=== PATIENT | female | born 1940 | race Caucasian/White ===

== ENCOUNTER → 2016-11-16 | Outpatient (CLI) | payer MEDICARE, OTHER ==
--- NOTE | 2016-11-16 12:13 | XR ---
EXAMINATION TYPE: XR calcaneus 2V RT DATE OF EXAM: 11/16/2016 11:52 AM COMPARISON: NONE HISTORY: Pain TECHNIQUE: 2 view right calcaneus FINDINGS: An enteric Achilles tendon calcaneal heel spurs are present. Soft tissues appear normal. No acute fractures are evident. Joint spaces appear preserved. IMPRESSION: 1. Calcaneal heel spurs
--- NOTE | 2016-11-16 12:14 | XR ---
EXAMINATION TYPE: XR shoulder complete BILAT DATE OF EXAM: 11/16/2016 11:52 AM COMPARISON: NONE HISTORY: Pain TECHNIQUE: Shoulder examined in 3 views. FINDINGS: The humeral head articulates with the glenoid. Left glenohumeral joint space may be narrowed compatib le some osteoarthritic degenerative change. Another is loss of joint space between the glenohumeral j oint space at the superior right. There is also loss of the acromiohumeral joint space compatible wit h a chronic rotator cuff tear. Right humeral head spurring is present. The acromio-clavicular junction is normal. No acute fractures or dislocations are evident. A follow up study can be performed 7-10 days from acute trauma for continued pain. IMPRESSION: 1. 1. Chronic right rotator cuff tear. 2. Osteoarthritic degenerative change bilateral shoulders, greater on the right.
== END ==
LOC: RADXRMAIN 11:22
PROVIDERS: ATTEND Family Medicine
DX: M19.011 Primary osteoarthritis, right shoulder (principal); M19.012 Primary osteoarthritis, left shoulder; M75.101 Unspecified rotator cuff tear or rupture of right shoulder, not specified as traumatic; M77.31 Calcaneal spur, right foot

== ENCOUNTER → 2018-08-09 | Outpatient (CLI) | payer MEDICARE, OTHER ==
[~2018-08-09] MED LIST: REGADENOSON 0.4 MG/5 ML SYRINGE IV ONE
--- NOTE | 2018-08-09 10:50 | NM ---
EXAMINATION TYPE: NM stress lexiscan cardiolite DATE OF EXAM: 08/09/2018 COMPARISON: NONE HISTORY: Abnormal EKG. History of asthma use and hypertension as well as hypercholesterolemia present s with palpitations per patient. TECHNIQUE: After the intravenous administration of 10.12 mCi Tc 99m Sestamibi - Cardiolite resting S PECT images acquired 45 minutes post injection. The patient received 0.4mg Lexiscan, 25.7 mCi Tc 99m Sestamibi - Stress images obtained [address] injection FINDINGS: There is overall diffuse diminished color intensity or radiotracer uptake on stress images versus res t images most prominent throughout the mid segments but involving all ventricular magana. TID value no madison within normal limits. Favor artifact but cannot exclude multivessel ischemia. Gated analysis show s overall ejection fraction of 69 % in the normal range. IMPRESSION: Suboptimal study, cannot exclude multi vessel significant stenosis. Advised further inves tigation with direct catheter angiogram or CTA coronary study.
--- NOTE | 2018-08-10 16:17 | ECHOF ---
Referral Reason:R94.31 abnormal ekg MEASUREMENTS -------- HEIGHT: 162.6 cm WEIGHT: 83.5 kg BP: RVIDd: 2.7 cm (< 3.3) IVSd: 1.3 cm (0.6 - 1.1) LVIDd: 4.1 cm (3.9 - 5.3) LVPWd: 1.2 cm (0.6 - 1.1) IVSs: 1.4 cm LVIDs: 3.5 cm LVPWs: 1.3 cm LA Diam: 3.6 cm (2.7 - 3.8) Ao Diam: 2.5 cm (2.0 - 3.7) AV Cusp: 1.7 cm (1.5 - 2.6) LA Diam: 3.2 cm (2.7 - 3.8) MV EXCURSION: 19.089 mm (> 18.000) MV EF SLOPE: 113 mm/s (70 - 150) EPSS: 0.3 cm MV E Chadd: 0.52 m/s MV DecT: 234 ms MV A Chadd: 0.76 m/s MV E/A Ratio: 0.69 RAP: 5.00 mmHg RVSP: 20.96 mmHg FINDINGS -------- Sinus rhythm. This was a technically good study. The left ventricular size is normal. There is mild concentric left ventricular hypertrophy. Overa ll left ventricular systolic function is normal with, an EF between 55 - 60 %. The right ventricle is normal in size. The left atrial size is normal. The right atrial size is normal. The aortic valve is trileaflet, and appears structurally normal. No aortic stenosis or regurgitation. Mild mitral annular calcification present. Mild mitral regurgitation is present. Mild tricuspid regurgitation present. There is no evidence of pulmonary hypertension. The right v entricular systolic pressure, as measured by Doppler, is 20.96mmHg. There is no pulmonic regurgitation present. The aortic root size is normal. There is no pericardial effusion. CONCLUSIONS -------- 1. The left ventricular size is normal. 2. There is mild concentric left ventricular hypertrophy. 3. Overall left ventricular systolic function is normal with, an EF between 55 - 60 %. 4. The right ventricle is normal in size. 5. The left atrial size is normal. 6. The right atrial size is normal. 7. The aortic valve is trileaflet, and appears structurally normal. No aortic stenosis or regurgitati on. 8. Mild mitral annular calcification present. 9. Mild mitral regurgitation is present. 10. Mild tricuspid regurgitation present. 11. There is no evidence of pulmonary hypertension. 12. The right ventricular systolic pressure, as measured by Doppler, is 20.96mmHg. 13. There is no pulmonic regurgitation present. 14. The aortic root size is normal. 15. There is no pericardial effusion. BUTTON BREAKER OPERATOR: Felisha Tsang RDCS
--- NOTE | 2018-08-10 17:56 | EST ---
EXERCISE STRESS DATE OF SERVICE: August 09, 2018. INDICATION: Chest pain. AGE: 77 SEX: Fe HT: 5'4" WT: 184 lbs PROTOCOL: STAGE: DURATION OF EXERCISE: HEART RATE REST: 59 BLOOD PRESSURE REST: 133/83 MAXIMUM HEART RATE ACHIEVED: 78 MAXIMUM BLOOD PRESSURE: 124/78 85% MPHR: 100% MPHR: METS: STRESS DATA: Pretesting physical examination showed a heart rate of 59, pressure is 133/83 mmHg. Baseline EKG showed sinus mechanism; 0.4 mg of Lexiscan was given seconds per protocol. Max heart rate was 76 beats per minute and maximum pressure was 124/78 mmHg. Clinically the patient did not have any symptoms of chest pain or discomfort and the EKG did not show any significant ST or T-wave abnormalities concerning for ischemia. CONCLUSION: 1. Nondiagnostic electrocardiogram stress testing in response to Lexiscan. 2. Please follow up on the Cardiolite portion on a separate report from radiology department. MMODL / IJN: [id number] /
== END ==
LOC: RADNMMAIN 07:47
PROVIDERS: ATTEND Family Medicine
DX: R94.31 Abnormal electrocardiogram [ECG] [EKG] (principal)
CPT/HCPCS: 93017; 93306; 78452; A9500; J2785

== ENCOUNTER → 2018-10-26 | Outpatient (CLI) | payer MEDICARE, OTHER ==
[2018-10-26 09:20] LABS: HCT 42.6 % (34.0-46.0); HGB 13.6 gm/dL (11.4-16.0); MCH 28.8 pg (25.0-35.0); MCHC 31.8 g/dL (31.0-37.0); MCV 90.6 fL (80.0-100.0); Mean Platelet Volume 7.1; Platelet Count 291 k/uL (150-450); RDW 14.2 % (11.5-15.5); WBC 6.7 k/uL (3.8-10.6)
[2018-10-26 10:30] LABS: Anion Gap 7 mmol/L; Blood Urea Nitrogen 14 mg/dL (7-17); Carbon Dioxide 29 mmol/L (22-30); Chloride 102 mmol/L (98-107); Potassium 4.5 mmol/L (3.5-5.1); Sodium 138 mmol/L (137-145)
== END ==
LOC: LABPAT 09:02
PROVIDERS: ATTEND Internal Medicine Cardiovascular Disease
DX: Z01.812 Encounter for preprocedural laboratory examination (principal); R07.9 Chest pain, unspecified
CPT/HCPCS: 36415; 80051; 82565; 84520; 85027

== ENCOUNTER → 2018-11-03 | Day surgery (SDC) | payer MEDICARE, OTHER ==
[2018-11-01 09:48] VITALS: BMI 30.6
[~2018-11-03] MED LIST changes: +ALPRAZolam 0.25 MG TAB PO PRN; +ALPRAZolam 0.5 MG TAB PO PRN; +ASPIRIN 325 MG TAB PO STA; +ATORVASTATIN 80 MG TAB PO STA; +HEPARIN SODIUM 1,000 UN/ML (10ML VL) IV ONE; +HEPARIN SODIUM 1,000 UN/ML (10ML VL) ONE; +IOPAMIDOL-370 100ML BTL INJ ONE; +LIDOCAINE 1% INJ 10MG/ML (20 ML MDV) ONE; +LIDOCAINE 1% INJ 10MG/ML (20 ML MDV) SQ ONE; +MIDAZOLAM 2 MG/2 ML VIAL IVP ONE; +NITROGLYCERIN SL TABS 0.4 MG TAB SUBLINGUAL PRN; -REGADENOSON 0.4 MG/5 ML SYRINGE IV ONE; +RX INFO: IV CONTRAST WAS GIVEN 1 EACH MISC MISCELLANE PRN; +SODIUM CHLORIDE 0.9% 1,000 ML IV SCH; +SODIUM CHLORIDE 0.9% 1,000 ML in EMPTY BAG 1 BAG IV ONE; +VERAPAMIL 2.5 MG/ML 2 ML AMP ONE; +VERAPAMIL SYRINGE (5 MG/10 ML) INTRAARTER ONE; +fentaNYL (PF) 50 MCG/ML 2 ML AMP IVP ONE; +fentaNYL (PF) 50 MCG/ML 2 ML AMP ONE; +methylPREDNISolone SOD SUCCI 125 MG/2 ML VIAL IVP ONE; +methylPREDNISolone SOD SUCCI 125 MG/2 ML VIAL ONE
[2018-11-03 06:54] VITALS: TEMP 97.8
--- NOTE | 2018-11-03 08:22 | P.CARDCATH ---
Date of Procedure: 11/03/18 Preoperative Diagnosis: Positive stress test and exertional dyspnea Postoperative Diagnosis: Normal coronary arteries, diastolic dysfunction with elevated end-diastolic pressures Procedure(s) Performed: Left heart cath without left ventriculography Description of Procedure: HISTORY: This is a 77-year-old female with history of hypertension who was recently evaluated by nuclear stress test for evaluation of symptoms of exertional shortness of breath. The quality of the study is suboptimal but was describes as showing multiple defects suggestive of possible multivessel disease . Patient was advised to have either at stress echocardiogram or cardiac catheterization for definitive diagnosis. Patient preferred to have cardiac catheterization CONSENT:I have discussed the risks, benefits and alternative therapies for the above-mentioned procedure and for both sedation/analgesia as well as necessary blood product administration, if indicated, as they pertain to this patient. The patient has indicated understanding and acceptance of the risks and procedures discussed. PROCEDURE: Patient was brought to the lab in a fasting state. Patient was given some IV sedation. The right wrist is infiltrated with lidocaine and right radial artery was entered using Seldinger technique. A 6-Swiss catheter was left in place and selective coronary arteriography was performed. Patient tolerated the procedure well. TR band was applied for hemostasis. No immediate complications were noted and patient was transferred to [facility] in a stable condition Conscious Sedation: Versed 1mg Fentanyl 50 g Duration 17minutes HEMODYNAMICS: The aortic pressure is about 140/70. Left ankle end-diastolic pressure is about 16-20. There was no gradient across the aortic valve SELECTIVE CORONARY ARTERIOGRAPHY: LEFT MAIN: Normal length and free of any occlusive disease THE LEFT ANTERIOR DESCENDING CORONARY ARTERY: The left anterior descending coronary artery is a good caliber vessel giving rise to good-sized diagonal branch. The LAD and its branches are free of occlusive disease THE LEFT CIRCUMFLEX AND IS CORONARY ARTERY:. This is a moderate caliber vessel giving rise good-sized OM branch. The circumflex and is coronary artery and branches are free of occlusive disease THE RIGHT CORONARY ARTERY:. This is a moderate caliber vessel dominant in distribution. Free of occlusive disease LEFT VENTRICULOGRAPHY:. Not performed FINAL IMPRESSION:, Normal coronary arteries. Mildly elevated end-diastolic pressure suggestive of diastolic dysfunction PLAN: Maximum medical therapy and this factor modification PROGNOSIS: Fair
[2018-11-03 09:18] VITALS: RESP 18
[2018-11-03 09:19] VITALS: BP 147/67; PULSE 54
== END ==
LOC: CATHCVL 06:30
PROVIDERS: ATTEND Internal Medicine Cardiovascular Disease
DX: R07.9 Chest pain, unspecified (principal); R94.39 Abnormal result of other cardiovascular function study; R06.09 Other forms of dyspnea; Z82.49 Family history of ischemic heart disease and other diseases of the circulatory system; Z79.1 Long term (current) use of non-steroidal anti-inflammatories (NSAID); Z79.890 Hormone replacement therapy; Z79.899 Other long term (current) drug therapy; Z88.1 Allergy status to other antibiotic agents; Z88.5 Allergy status to narcotic agent; Z88.0 Allergy status to penicillin; Z91.048 Other nonmedicinal substance allergy status
CPT/HCPCS: 93458; C1894; J2250; J2930; J2001; J3010; J1644; Q9967

== ENCOUNTER → 2019-04-21 | Day surgery (SDC) | payer MEDICARE, OTHER ==
[2019-04-17 14:54] VITALS: BMI 30.9
[~2019-04-21] MED LIST changes: -ALPRAZolam 0.25 MG TAB PO PRN; -ALPRAZolam 0.5 MG TAB PO PRN; -ASPIRIN 325 MG TAB PO STA; -ATORVASTATIN 80 MG TAB PO STA; -HEPARIN SODIUM 1,000 UN/ML (10ML VL) IV ONE; -HEPARIN SODIUM 1,000 UN/ML (10ML VL) ONE; -IOPAMIDOL-370 100ML BTL INJ ONE; +LACTATED RINGERS 1,000 ML IV SCH; -LIDOCAINE 1% INJ 10MG/ML (20 ML MDV) ONE; -LIDOCAINE 1% INJ 10MG/ML (20 ML MDV) SQ ONE; -MIDAZOLAM 2 MG/2 ML VIAL IVP ONE; -NITROGLYCERIN SL TABS 0.4 MG TAB SUBLINGUAL PRN; +PROPOFOL 10 MG/ML 20 ML VIAL IV ONE; -RX INFO: IV CONTRAST WAS GIVEN 1 EACH MISC MISCELLANE PRN; -SODIUM CHLORIDE 0.9% 1,000 ML IV SCH; -SODIUM CHLORIDE 0.9% 1,000 ML in EMPTY BAG 1 BAG IV ONE; -VERAPAMIL 2.5 MG/ML 2 ML AMP ONE; -VERAPAMIL SYRINGE (5 MG/10 ML) INTRAARTER ONE; -fentaNYL (PF) 50 MCG/ML 2 ML AMP IVP ONE; -fentaNYL (PF) 50 MCG/ML 2 ML AMP ONE; -methylPREDNISolone SOD SUCCI 125 MG/2 ML VIAL IVP ONE; -methylPREDNISolone SOD SUCCI 125 MG/2 ML VIAL ONE
[2019-04-21 13:25] VITALS: TEMP 97.8
--- NOTE | 2019-04-21 14:36 | P.PCN ---
Date of Procedure: 04/21/19 Procedure(s) Performed: BRIEF HISTORY: Patient is a 78-year-old pleasant white female, scheduled for an elective colonoscopy as a part of evaluation of chronic diarrhea and mucus in the stools for the last 6 weeks duration. She also has prior history of colon polyps. PROCEDURE PERFORMED: Colonoscopy. PREOPERATIVE DIAGNOSIS: Chronic diarrhea and prior history of colon polyps. IV sedation per Anesthesia. PROCEDURE: After informed consent was obtained, the patient, was brought into the endoscopy unit. IV sedation was administered by Anesthesia under continuous monitoring. Digital rectal examination was normal. Initially the Olympus CF-160 flexible video colonoscope was then inserted in the rectum, gradually advanced into the cecum without any difficulty. Careful examination was performed as the scope was gradually being withdrawn. Ileocecal valve and the appendiceal orifice were visualized and appeared normal. Prep was excellent. Mucosa of the cecum, ascending colon, transverse colon, descending colon, sigmoid colon, and rectum appeared normal. Moderate sigmoid_Diverticulosis seen. Retroflexion was performed in the rectum and no lesions were seen. The patient tolerated the procedure well. IMPRESSION: Normal-appearing colon from rectum to cecum with no evidence of colitis or c olorectal neoplasia Moderate sigmoid diverticulosis. RECOMMENDATIONS: Findings of this examination were discussed with the patient as her family. She was advised to be on a high-fiber diet and fiber supplements a regular basis. She can have a repeat colonoscopy in 5 years because of the prior history of colon polyps.
[2019-04-21 15:08] VITALS: BP 159/83; PULSE 79; RESP 17
== END ==
LOC: ORWHC2ENDO 13:00
PROVIDERS: ATTEND Internal Medicine Gastroenterology
DX: K57.30 Diverticulosis of large intestine without perforation or abscess without bleeding (principal); Z86.010 Personal history of colon polyps; E78.5 Hyperlipidemia, unspecified; E07.9 Disorder of thyroid, unspecified; F39 Unspecified mood [affective] disorder; Z79.1 Long term (current) use of non-steroidal anti-inflammatories (NSAID); Z79.890 Hormone replacement therapy; Z79.899 Other long term (current) drug therapy; Z88.1 Allergy status to other antibiotic agents; Z91.041 Radiographic dye allergy status; Z88.5 Allergy status to narcotic agent; Z88.0 Allergy status to penicillin; Z91.013 Allergy to seafood
CPT/HCPCS: 45378; J2704

== ENCOUNTER → 2019-06-12 | Outpatient (CLI) | payer MEDICARE, OTHER ==
--- NOTE | 2019-06-13 10:13 | MM ---
Reason for exam: screening (asymptomatic). Last mammogram was performed 4 years and 8 months ago. History: Patient is postmenopausal. Family history of breast cancer in daughter at age 47. Excisional biopsy of the right breast. Physical Findings: A clinical breast exam by your physician is recommended on an annual basis and results should be correlated with mammographic findings. MG 3D Screening Mammo W/Cad Bilateral CC and MLO view(s) were taken. Prior study comparison: October 01, 2014, bilateral MG screening mammo w CAD. June 15, 2013, bilateral digital screening mammo w/CAD. The breast tissue is heterogeneously dense. This may lower the sensitivity of mammography. Benign appearing bilateral calcifications. No suspicious abnormality. No significant changes when compared with prior studies. ASSESSMENT: Benign, BI-RAD 2 RECOMMENDATION: Routine screening mammogram of both breasts in 1 year.
== END | disposition home or self-care (01) ==
LOC: RADMAMWWP 09:52
PROVIDERS: ATTEND Family Medicine
DX: Z12.31 Encounter for screening mammogram for malignant neoplasm of breast (principal); Z80.3 Family history of malignant neoplasm of breast
CPT/HCPCS: 77063; 77067

== ENCOUNTER → 2023-02-25 | Outpatient (CLI) | payer MEDICARE, OTHER ==
--- NOTE | 2023-02-26 12:39 | CA ---
Transthoracic Echo Report Name: Cailin Cooper Age: 82 Gender: F : 1940 Exam Date: 02/25/2023 11:51 Exam Location: [facility] Ht (in): 64 Wt (lb): 190 Ordering Physician: Elijah Silva MD Attending/Referring Phys: Elijah Silva MD Electronic Plotting System Operator Comfort Norwood RDCS Procedure CPT: Indications: R60.0 lower extremity edema Cardiac Hx: Technical Quality: Fair Contrast 1: Total Dose (mL): Contrast 2: Total Dose (mL): MEASUREMENTS (Male / Female) Normal Values 2D ECHO LV Diastolic Diameter PLAX 4.6 cm 4.2 - 5.9 / 3.9 - 5.3 cm LV Systolic Diameter PLAX 3.0 cm IVS Diastolic Thickness 1.1 cm 0.6 - 1.0 / 0.6 - 0.9 cm LVPW Diastolic Thickness 1.0 cm 0.6 - 1.0 / 0.6 - 0.9 cm LV Relative Wall Thickness 0.5 RV Internal Dim ED PLAX 2.9 cm LA Volume 59.4 cm??? 18 - 58 / 22 - 52 cm??? M-MODE Aortic Root Diameter MM 2.6 cm LA Systolic Diameter MM 3.4 cm LA Ao Ratio MM 1.3 AV Cusp Separation MM 1.9 cm DOPPLER AV Peak Velocity 135.6 cm/s AV Peak Gradient 7.4 mmHg AV Mean Velocity 91.9 cm/s AV Mean Gradient 3.7 mmHg AV Velocity Time Integral 30.4 cm LVOT Peak Velocity 99.1 cm/s LVOT Peak Gradient 3.9 mmHg LVOT Velocity Time Integral 27.0 cm MV Area PHT 3.4 cm??? Mitral E Point Velocity 82.7 cm/s Mitral A Point Velocity 78.8 cm/s Mitral E to A Ratio 1.1 MV Deceleration Time 224.1 ms MV E' Velocity 7.6 cm/s Mitral E to MV E' Ratio 10.9 TR Peak Velocity 275.1 cm/s TR Peak Gradient 30.3 mmHg Right Ventricular Systolic Press 33.0 mmHg FINDINGS Left Ventricle Mildly increased left ventricular wall thickness. Left ventricular cavity size normal. Normal left ventricular systolic function with no obvious regional wall motion abnormalities. Left ventricular ejection fraction is estimated at 55-60 %. Right Ventricle Normal right ventricular size and function. Right Atrium Normal right atrial size. Left Atrium Mildly increased left atrial volume. Mitral Valve Structurally normal mitral valve. Mild mitral annular calcification. Mild to moderate mitral regurgitation. Aortic Valve Trileaflet aortic valve. No aortic valve stenosis or regurgitation. Tricuspid Valve Structurally normal tricuspid valve. Mild tricuspid regurgitation. Pulmonic Valve Structurally normal pulmonic valve. Trace pulmonic regurgitation. Pericardium Normal pericardium. No pericardial effusion. Aorta Normal size aortic root and proximal ascending aorta. CONCLUSIONS Normal LV systolic function [id number] mitral regurgitation Previewed by: Dr. Nima Baptiste MD (Electronically Signed) Final Date: 26 February 2023 12:39
== END | disposition home or self-care (01) ==
LOC: RADECHMAIN 11:27
PROVIDERS: ATTEND Family Medicine
DX: I34.0 Nonrheumatic mitral (valve) insufficiency (principal); R60.0 Localized edema
CPT/HCPCS: 93306

== ENCOUNTER → 2023-07-20 | Outpatient (CLI) | payer MEDICARE, OTHER ==
--- NOTE | 2023-07-20 20:31 | XR ---
EXAMINATION TYPE: XR shoulder complete 3 views BILAT DATE OF EXAM: 07/20/2023 COMPARISON: 11/16/2016 HISTORY: 82-year-old female M25.511, M25.512 Chronic pain of both shoulders. Long-term bilateral shou lder pain. FINDINGS: There is mild degenerative change of the bilateral AC joints. On both sides, there is rounded contour to the greater tuberosities weight loss of the subacromial sp dulce maria on the [place] views and degenerative spurring at the glenohumeral joints, slightly more so on th e right. There is additional sclerosis along the undersurface of the acromion on the right. No acute fracture or dislocation. IMPRESSION: 1. Bilateral rotator cuff arthropathy, progressed on the right. 2. The right acromion has developed stress reaction from glenohumeral joint instability and chronic b penelope abutment of the humeral head with the undersurface of the acromion. 3. Mild bilateral AC joint OA.
== END | disposition home or self-care (01) ==
LOC: RADXRMAIN 10:30
PROVIDERS: ATTEND Family Medicine
DX: M19.011 Primary osteoarthritis, right shoulder (principal); M19.012 Primary osteoarthritis, left shoulder

== ENCOUNTER 2024-02-15 12:19 | Inpatient (IN) | payer MEDICARE, OTHER ==
--- NOTE | 2024-02-15 13:01 | ED ---
General Adult HPI - General Chief complaint: Nausea/Vomiting/Diarrhea Stated complaint: NVD Time Seen by Provider: 02/15/24 12:35 Source: patient, RN notes reviewed Mode of arrival: ambulatory Limitations: no limitations - History of Present Illness Initial comments: Patient is a pleasant 83-year-old female present to the emergency department with concerns for abdominal problems. Onset of symptoms was 2 weeks ago. Patient does have nausea. Food makes the nausea worse and patient has had decreased appetite. Patient sometimes has a small amount of emesis up to a couple times per day. Patient has had a couple episodes of diarrhea. Patient has some epigastric discomfort - Related Data Home Medications Medication Instructions Recorded Confirmed Escitalopram [Lexapro] 20 mg PO [facility] 04/17/19 02/15/24 Acetaminophen Tab [Tylenol Tab] 500 - 1,000 mg PO [facility] 02/15/24 02/15/24 Calcium 333mg/Magnesium 133mg/Zinc 1 tab PO DAILY 02/15/24 02/15/24 5mg/Vitamin D3 5mcg Cholecalciferol (Vitamin D3) 50 mcg PO DAILY 02/15/24 02/15/24 [Vitamin D3 (50 Mcg = 2000 Iu)] Cyanocobalamin [Vitamin B-12] 500 mcg PO DAILY 02/15/24 02/15/24 Elderberry 50mg 1 tab PO DAILY 02/15/24 02/15/24 Furosemide [Lasix] 20 mg PO [facility] 02/15/24 02/15/24 Levothyroxine Sodium [Synthroid] 88 mcg PO DAILY 02/15/24 02/15/24 Potassium Chloride ER [K-Dur 20] 20 meq PO [facility] 02/15/24 02/15/24 Rosuvastatin [Crestor] 10 mg PO HS 02/15/24 02/15/24 Turmeric Curcumin 1500mg W/10mg 1 tab PO DAILY 02/15/24 02/15/24 Bioperine Vitamin C 100mg 1 tab PO DAILY 02/15/24 02/15/24 Allergies Allergy/AdvReac Type Severity Reaction Status Date / Time iodine Allergy Severe Abdominal Verified 02/15/24 13:45 Pain/hives clindamycin Allergy Nausea & Verified 02/15/24 13:45 Vomiting & Diarrhea codeine Allergy Rash/Hives Verified 02/15/24 13:45 oxycodone [From OxyContin] Allergy Unknown Verified 02/15/24 13:46 Penicillins Allergy Rash/Hives Verified 02/15/24 13:45 prednisone Allergy Unknown Verified 02/15/24 13:46 shellfish derived [Shellfish] Allergy Rash/Hives Verified 02/15/24 13:45 amoxicillin AdvReac Rash/Hives Verified 02/15/24 13:45 hydrocodone bitartrate AdvReac Nausea & Verified 02/15/24 13:45 [From Vicodin] Vomiting & Diarrhea venom-honey bee AdvReac Chest Pain Verified 02/15/24 13:45 [bee venom (honey bee)] Review of Systems ROS Statement: Those systems with pertinent positive or pertinent negative responses have been documented in the HPI. ROS Other: All systems not noted in ROS Statement are negative. Constitutional: Denies: fever Eyes: Denies: eye pain ENT: Denies: ear pain Respiratory: Denies: cough Cardiovascular: Denies: chest pain Endocrine: Denies: fatigue Gastrointestinal: Reports: as per HPI, nausea, vomiting Genitourinary: Denies: dysuria Musculoskeletal: Denies: back pain Skin: Denies: rash Neurological: Denies: weakness Past Medical History Past Medical History: Hyperlipidemia, Osteoarthritis (OA), Thyroid Disorder Additional Past Medical History / Comment(s): diverticulitis, hx c-diff 10/2013 History of Any Multi-Drug Resistant Organisms: None Reported Date of last positivie culture/infection: 10/2013 MDRO Source:: stool Past Surgical History: Breast Surgery, Heart Catheterization, Hysterectomy, Joint Replacement, Tonsillectomy Additional Past Surgical History / Comment(s): left knee replacement, rt breast lumpectomy Past Anesthesia/Blood Transfusion Reactions: No Reported Reaction Additional Past Anesthesia/Blood Transfusion Reaction / Comment(s): Pt has never had a blood transfusion. Past Psychological History: Depression Past Alcohol Use History: None Reported Past Drug Use History: None Reported - Past Family History Daughter(s) Family Medical History: Cancer Father Family Medical History: Cancer Additional Family Medical History / Comment(s): testicular Mother Additional Family Medical History / Comment(s): Mother after wisdom tooth pulled and ended up with blood poisoning. General Exam Limitations: no limitations General appearance: alert, in no apparent distress Head exam: Present: normocephalic Eye exam: Present: normal appearance ENT exam: Present: normal oropharynx Neck exam: Present: normal inspection Respiratory exam: Present: normal lung sounds bilaterally Cardiovascular Exam: Present: regular rate, normal rhythm Expanded Peripheral pulses: 2+: Dorsalis Pedis (R), Dorsalis Pedis (L) GI/Abdominal exam: Present: soft, tenderness (Mild epigastric tenderness), normal bowel sounds. Absent: distended, guarding, rebound, rigid, pulsatile mass Extremities exam: Present: normal inspection Neurological exam: Present: alert Psychiatric exam: Present: normal affect, normal mood Skin exam: Present: normal color Course Vital Signs 02/15/24 02/15/24 12:25 18:00 Temperature 97.5 F L Pulse Rate 89 73 Respiratory 16 14 Rate Blood Pressure 136/83 143/80 O2 Sat by Pulse 95 98 Oximetry Medical Decision Making - Medical Decision Making Was pt. sent in by a medical professional or institution (, PA, BOTTOM PRESSER, urgent care, hospital, or [facility]...) When possible be specific @ -No Did you speak to anyone other than the patient for history (EMS, parent, family, police, friend...)? What history was obtained from this source @ - present and helps provide history including onset and severity of symptoms Did you review nursing and triage notes (agree or disagree)? Why? @ -I reviewed and agree with nursing and triage notes Were old charts reviewed (outside hosp., previous admission, EMS record, old EKG, old radiological studies, urgent care reports/EKG's, [facility] records)? Report findings @ -No old charts were reviewed Differential Diagnosis (chest pain, altered mental status, abdominal pain women, abdominal pain men, vaginal bleeding, weakness, fever, dyspnea, syncope, headache, dizziness, GI bleed, back pain, seizure, CVA, palpatations, mental health, musculoskeletal)? @ -Differential Abdominal Pain Women: Appendicitis, Cholecystitis, diverticulosis, ischemic bowel, pancreatitis, hepatitis, UTI, gastroenteritis, AAA, incarcerated hernia, bowel obstruction, constipation, inflammatory bowel, hepatitis, peptic ulcer disease, splenic infarction, perforated viscus, vulvitis, ovarian torsion, PID, kidney stone, placenta abruption, this is not meant to be an all-inclusive list EKG interpreted by me (3pts min.). @ -As above X-rays interpreted by me (1pt min.). @ -None done CT interpreted by me (1pt min.). @ -CT scan does show fluid collection in the pelvis U/S interpreted by me (1pt. min.). @ -Will be ordered as an inpatient What testing was considered but not performed or refused? (CT, X-rays, U/S, labs)? Why? @ -Ultrasound will be ordered What meds were considered but not given or refused? Why? @ -None Did you discuss the management of the patient with other professionals (professionals i.e. , PA, B[employer] PR[employer]ER, lab, RT, psych nurse, director social service, design and sales consultant, teacher, chief commercial officer, correctional case manager)? Give summary @ -This was discussed with Dr. Paula who will admit covering Dr. Gonzalez Was smoking cessation discussed for >3mins.? @ -No Was critical care preformed (if so, how long)? @ -No Were there social determinants of health that impacted care today? How? (Homelessness, low income, unemployed, alcoholism, drug addiction, transportation, low edu. Level, literacy, decrease access to med. care, long term, rehab)? @ -No Was there de-escalation of care discussed even if they declined (Discuss DNR or withdrawal of care, Hospice)? DNR status @ -No What co-morbidities impacted this encounter? (DM, HTN, Smoking, COPD, CAD, Cancer, CVA, ARF, Chemo, Hep., AIDS, mental health diagnosis, sleep apnea, morbid obesity)? @ -None Was patient admitted / discharged? Hospital course, mention meds given and route, prescriptions, significant lab abnormalities, going to OR and other pertinent info. @ -Patient presents with GI symptoms. Mostly nausea and vomiting. Patient has hyponatremia. Patient will be admitted and provided fluids and ultrasound will be ordered for fluid collection in the pelvis Undiagnosed new problem with uncertain prognosis? @ -No Drug Therapy requiring intensive monitoring for toxicity (Heparin, Nitro, Insulin, Cardizem)? @ -No Were any procedures done? @ -No Diagnosis/symptom? @ -Hyponatremia Acute, or Chronic, or Acute on Chronic? @ -Acute Uncomplicated (without systemic symptoms) or Complicated (systemic symptoms)? @ -Default Side effects of treatment? @ -No Exacerbation, Progression, or Severe Exacerbation? @ -No Poses a threat to life or bodily function? How? (Chest pain, [place], [place], pneumonia, PE, COPD, DKA, ARF, appy, cholecystitis, CVA, Diverticulitis, Homicidal, Suicidal, threat to staff... and all critical care pts) @ -No - Lab Data Result diagrams: 02/15/24 13:07 02/15/24 13:07 Lab Results 02/15/24 02/15/24 02/15/24 Range/Units 13:07 13:07 13:07 WBC 11.6 H (3.8-10.6) k/uL RBC 4.35 (3.80-5.40) m/uL Hgb 13.0 (11.4-16.0) gm/dL Hct 37.4 (34.0-46.0) % MCV 86.0 (80.0-100.0) fL MCH 29.9 (25.0-35.0) pg MCHC 34.8 (31.0-37.0) g/dL RDW 14.1 (11.5-15.5) % Plt Count 330 (150-450) k/uL MPV 7.5 Neutrophils % 83 % Lymphocytes % 12 % Monocytes % 4 % Eosinophils % 1 % Basophils % 0 % Neutrophils # 9.7 H (1.3-7.7) k/uL Lymphocytes # 1.4 (1.0-4.8) k/uL Monocytes # 0.4 (0-1.0) k/uL Eosinophils # 0.1 (0-0.7) k/uL Basophils # 0.0 (0-0.2) k/uL PT 10.4 (10.0-12.5) sec INR 0.9 (<1.2) APTT 24.0 (22.0-30.0) sec Sodium 126 L (137-145) mmol/L Potassium 4.2 (3.5-5.1) mmol/L Chloride 96 L (98-107) mmol/L Carbon Dioxide 27 (22-30) mmol/L Anion Gap 3 mmol/L BUN 11 (7-17) mg/dL Creatinine 0.63 (0.52-1.04) mg/dL Est GFR (CKD-EPI)AfAm >90 (>60 ml/min/1.73 sqM) Est GFR (CKD-EPI)NonAf 84 (>60 ml/min/1.73 sqM) Glucose 103 H (74-99) mg/dL Calcium 8.8 (8.4-10.2) mg/dL Total Bilirubin 0.5 (0.2-1.3) mg/dL AST 34 (14-36) U/L ALT 15 (4-34) U/L Alkaline Phosphatase 85 (38-126) U/L Total Protein 5.8 L (6.3-8.2) g/dL Albumin 3.5 (3.5-5.0) g/dL Amylase 53 (30-110) U/L Lipase 134 (23-300) U/L Disposition Clinical Impression: Hyponatremia Disposition: ADMITTED IP TO THIS HOSP Is patient prescribed a controlled substance at d/c from ED?: No Referrals: Elijah Silva MD [Primary Care Provider] - 1-2 days Time of Disposition: 18:09
[2024-02-15] MEDS: SODIUM CHLORIDE 0.9% 1,000 ML IV STA (13:13)
[2024-02-15] MEDS: DICYCLOMINE 10 MG/ML 2 ML AMP IM STA (13:14)
[2024-02-15] MEDS: ONDANSETRON 4 MG/2 ML VIAL IVP STA (13:14)
[2024-02-15] MEDS: FAMOTIDINE 20 MG/2 ML VIAL IV STA (13:15)
[2024-02-15 13:33] LABS: Basophils % (A) 0 %; Eosinophils # (A) 0.1 k/uL (0-0.7); Eosinophils % (A) 1 %; HCT 37.4 % (34.0-46.0); Lymphocytes # (A) 1.4 k/uL (1.0-4.8); Lymphocytes % (A) 12 %; MCH 29.9 pg (25.0-35.0); MCHC 34.8 g/dL (31.0-37.0); Mean Platelet Volume 7.5; Monocytes # (A) 0.4 k/uL (0-1.0); Monocytes % (A) 4 %; Neutrophils # (A) 9.7 k/uL (1.3-7.7); Neutrophils % (A) 83 %; Platelet Count 330 k/uL (150-450); RBC 4.35 m/uL (3.80-5.40); RDW 14.1 % (11.5-15.5); WBC 11.6 k/uL (3.8-10.6)
[2024-02-15 13:39] LABS: INR 0.9 (<1.2); Prothrombin Time 10.4 sec (10.0-12.5)
[2024-02-15 13:45] LABS: ALT 15 U/L (4-34); AST 34 U/L (14-36); African American GFR (CKD) >90 (>60 ml/min/1.73 sqM); Albumin 3.5 g/dL (3.5-5.0); Alkaline Phosphatase 85 U/L (38-126); Amylase 53 U/L (30-110); Anion Gap 3 mmol/L; Blood Urea Nitrogen 11 mg/dL (7-17); Calcium 8.8 mg/dL (8.4-10.2); Carbon Dioxide 27 mmol/L (22-30); Chloride 96 mmol/L (98-107); Glucose 103 mg/dL (74-99); Lipase 134 U/L (23-300); Non-African American GFR(CKD) 84 (>60 ml/min/1.73 sqM); Potassium 4.2 mmol/L (3.5-5.1); Sodium 126 mmol/L (137-145); Total Bilirubin 0.5 mg/dL (0.2-1.3); Total Protein 5.8 g/dL (6.3-8.2)
--- NOTE | 2024-02-15 17:30 | CT ---
EXAMINATION TYPE: CT abdomen pelvis wo con DATE OF EXAM: 02/15/2024 COMPARISON: None INDICATION: nausea, vomiting, diarrhea DLP: 821.1 mGycm, Automated exposure control for dose reduction was used. CONTRAST: 0 mL of Isovue 300. Study performed without Oral Contrast TECHNIQUE: Axial images were obtained from above the diaphragm to the pubic rami in the axial plane a t 5 mm thick sections. Reconstructed images are reviewed on the computer in the coronal plane. FINDINGS: Limited CT sections are obtained the lung bases. The lung bases are clear. CT ABDOMEN: Liver: Normal Spleen: Normal Pancreas: Normal Adrenal glands: The adrenal glands are normal. Gallbladder: Normal Kidneys: No masses are evident. No hydronephrosis is present. No cysts are present. No renal stone s are evident. Aorta: Vascular calcification is within the aorta. Inferior vena cava: Normal. CT PELVIS: Loops of bowel within the abdomen and pelvis are normal. Scattered diverticuli are present. Study is without contrast limiting Bowel evaluation Appendix: Not identified. No suspicious inflammatory change or dilated tubular structure is evident Urinary bladder: Normal. Genitourinary structures: Uterus and ovaries are not identified. Osseous structures: No suspicious lytic or sclerotic lesions. Inferior to the urinary bladder there is a 2.7 x 1.8 cm low dense collection near the level of the pe lvic floor. Correlate for abscess. Consider perirectal abscess seen anterior to the rectum. This coul d be within the vaginal vault. Consider Ray cyst. IMPRESSION: 1. 2.7 x 1.8 cm low density collection near the pelvic floor could be a Ray cyst or abscess. Cor relate with patient's symptoms. 2 diverticulosis without acute diverticulitis.
[2024-02-15] MEDS ORDERED: NALOXONE 0.4 MG/ML 1 ML VIAL IV PRN (18:09)
[2024-02-15] MEDS: ATORVASTATIN 20 MG TAB PO SCH (20:10)
[2024-02-15] MEDS: ACETAMINOPHEN TAB 325 MG TAB PO PRN (20:10)
--- NOTE | 2024-02-15 20:21 | US ---
EXAMINATION TYPE: US pelvic limited DATE OF EXAM: 02/15/2024 COMPARISON: CT 02/15/2024 CLINICAL INDICATION: Female, 83 years old with history of Fluid collection; Fluid collection seen on CT TECHNIQUE: Transabdominal (TA). Transabdominal sonographic images of the pelvis were acquired. EXAM MEASUREMENTS: Uterus: Surgically absent Endometrial Stripe: Surgically absent Right Ovary: Surgically absent Left Ovary: Surgically absent 1. Bilateral Adnexa: Obscured by overlying bowel gas 2. Posterior cul-de-sac: wnl Fluid collection on CT not seen on today's exam. IMPRESSION: * Uterus and ovaries are surgically absent. * Fluid collection suggested by CT is not seen on today's exam.
[2024-02-15] MEDS: SODIUM CHLORIDE 0.9% 1,000 ML IV SCH (21:21)
[2024-02-16] MEDS: LEVOTHYROXINE 88 MCG TAB PO SCH (06:08)
--- NOTE | 2024-02-16 06:16 | P.HPIM ---
History of Present Illness H&P Date: 02/15/24 Chief Complaint: abd pain 83-year-old female with hypothyroid hyperlipidemia Patient coming in with 2-3 week history of recurrent episodes of abdominal cramps and pain she rates them as 6-8 out of 10 in severity usually diffuse gets worse with eating associated with poor appetite usually she will get the cramps and then she will get an attack of diarrhea after which her pain improves. She started taking some antidiarrheal medications that she cannot recall however over the past few days she started having episodes of emesis nonbloody nonbilious she denies any other GI bleeding. Denies any fevers chills denies any chest pain trouble breathing denies any recent travel or hospital stay she lives with her who feels fine denies any similar symptoms She denies taking any recent antibiotics she denies any history of C. difficile Patient denies tobacco smoking illicit drugs or heavy alcohol Workup in the ED CT scan of the abdomen revealed possible collection near the pelvic floor pelvic ultrasound failed to redemonstrate that review of systems Pertinent positives as noted in HPI. All other systems were reviewed and are negative on exam Constitutional: No acute distress, conversant, pleasant Eyes: Anicteric sclerae, moist conjunctiva, Pupils equal round reactive to light . Lungs: Clear to auscultation Clear to percussion Normal respiratory effort, no accessory muscle use Cardiovascular: Heart regular in rate and rhythm, No murmurs, gallops, or rubs No peripheral edema Abdominal: Soft Nontender, no guarding, rebound or rigidity Abdomen moving with respiration Normoactive bowel sounds Extremities: No digital cyanosis No clubbing Pedal pulses intact and symmetrical Radial pulses intact and symmetrical No calf tenderness Psychiatric: Alert and oriented to person, place and time Appropriate affect fair judgement Neuro Muscles Strength 5/5 in all 4 extremities Sensation to light touch grossly present throughout Cranial nerves II-XII grossly intact Past Medical History Past Medical History: Hyperlipidemia, Osteoarthritis (OA), Thyroid Disorder Additional Past Medical History / Comment(s): diverticulitis, hx c-diff 10/2013 History of Any Multi-Drug Resistant Organisms: None Reported Date of last positivie culture/infection: 10/2013 MDRO Source:: stool Past Surgical History: Breast Surgery, Heart Catheterization, Hysterectomy, Joint Replacement, Tonsillectomy Additional Past Surgical History / Comment(s): left knee replacement, rt breast lumpectomy Past Anesthesia/Blood Transfusion Reactions: No Reported Reaction Additional Past Anesthesia/Blood Transfusion Reaction / Comment(s): Pt has never had a blood transfusion. Past Psychological History: Depression Additional Psychological History / Comment(s): . Smoking Status: Never smoker Past Alcohol Use History: None Reported Past Drug Use History: None Reported - Past Family History Daughter(s) Family Medical History: Cancer Father Family Medical History: Cancer Additional Family Medical History / Comment(s): testicular Mother Additional Family Medical History / Comment(s): Mother after wisdom tooth pulled and ended up with blood poisoning. Medications and Allergies Home Medications Medication Instructions Recorded Confirmed Type Escitalopram [Lexapro] 20 mg PO -[facility] 04/17/19 02/15/24 History Acetaminophen Tab [Tylenol Tab] 500 - 1,000 mg PO [facility] 02/15/24 02/15/24 History Calcium 333mg/Magnesium 133mg/Zinc 1 tab PO DAILY 02/15/24 02/15/24 History 5mg/Vitamin D3 5mcg Cholecalciferol (Vitamin D3) 50 mcg PO DAILY 02/15/24 02/15/24 History [Vitamin D3 (50 Mcg = 2000 Iu)] Cyanocobalamin [Vitamin B-12] 500 mcg PO DAILY 02/15/24 02/15/24 History Elderberry 50mg 1 tab PO DAILY 02/15/24 02/15/24 History Furosemide [Lasix] 20 mg PO [facility] 02/15/24 02/15/24 History Levothyroxine Sodium [Synthroid] 88 mcg PO DAILY 02/15/24 02/15/24 History Potassium Chloride ER [K-Dur 20] 20 [facility]q [facility] 02/15/24 02/15/24 History Rosuvastatin [Crestor] 10 mg PO HS 02/15/24 02/15/24 History Turmeric Curcumin 1500mg W/10mg 1 tab PO DAILY 02/15/24 02/15/24 History Bioperine Vitamin C 100mg 1 tab PO DAILY 02/15/24 02/15/24 History Allergies Allergy/AdvReac Type Severity Reaction Status Date / Time iodine Allergy Severe Abdominal Verified 02/15/24 13:45 Pain/hives clindamycin Allergy Nausea & Verified 02/15/24 13:45 Vomiting & Diarrhea codeine Allergy Rash/Hives Verified 02/15/24 13:45 oxycodone [From OxyContin] Allergy Unknown Verified 02/15/24 13:46 Penicillins Allergy Rash/Hives Verified 02/15/24 13:45 prednisone Allergy Unknown Verified 02/15/24 13:46 shellfish derived [Shellfish] Allergy Rash/Hives Verified 02/15/24 13:45 amoxicillin AdvReac Rash/Hives Verified 02/15/24 13:45 hydrocodone bitartrate AdvReac Nausea & Verified 02/15/24 13:45 [From Vicodin] Vomiting & Diarrhea venom-honey bee AdvReac Chest Pain Verified 02/15/24 13:45 [bee venom (honey bee)] Physical Exam Vitals: Vital Signs Temp Pulse Resp BP Pulse Ox 02/15/24 20:20 67 14 131/69 96 02/15/24 18:00 73 14 143/80 98 02/15/24 12:25 97.5 F L 89 16 136/83 95 Intake and Output 02/15/24 02/15/24 02/15/24 06:59 14:59 22:59 Other: Weight 86.183 kg 86.183 kg Results CBC & Chem 7: 02/15/24 13:07 02/15/24 13:07 Labs: Abnormal Lab Results - Last 24 Hours (Table) 02/15/24 02/15/24 Range/Units 13:07 13:07 WBC 11.6 H (3.8-10.6) k/uL Neutrophils # 9.7 H (1.3-7.7) k/uL Sodium 126 L (137-145) mmol/L Chloride 96 L (98-107) mmol/L Glucose 103 H (74-99) mg/dL Total Protein 5.8 L (6.3-8.2) g/dL Assessment and Plan Assessment: 83-year-old female hyperlipidemia hypothyroid coming in with 2 to 3-week history of recurrent abdominal cramps associated with diarrhea CT scan of the abdomen in the ED revealed possible pelvic floor collection I discussed the case with ED doctor and accepted the admission for surgical evaluation of a possible pelvic floor collection with anticipated length of stay less than 2 midnights Recurrent abdominal pain and diarrhea CT of the abdomen showed 2.7 x 1.8 cm collection near the pelvic floor, suspicious of an abscess or Ray's cyst Follow-up cultures Start patient on Flagyl Patient has multiple allergies we will consult ID General surgery consultation White count 11.6 afebrile Hemoglobin 13 unremarkable Pelvic ultrasound felt to redemonstrate the pelvic floor collection. Normal saline 75 cc/h Zofran 4 mg IV push every 8 hours as needed for nausea vomiting Hyponatremia Sodium 126 Otherwise Renal function unremarkable BUN 11 creatinine 0.6 Hyperlipidemia Continue with atorvastatin Hypothyroid Resume levothyroxine Full code DVT prophylaxis heparin subcu 5000 units 3 times daily GI prophylaxis Protonix 40 mg IV daily
[2024-02-16 06:44] LABS: Basophils % (A) 1 %; Eosinophils # (A) 0.1 k/uL (0-0.7); Eosinophils % (A) 1 %; HCT 40.4 % (34.0-46.0); HGB 13.2 gm/dL (11.4-16.0); Lymphocytes # (A) 2.3 k/uL (1.0-4.8); Lymphocytes % (A) 32 %; MCH 28.8 pg (25.0-35.0); MCHC 32.6 g/dL (31.0-37.0); MCV 88.3 fL (80.0-100.0); Mean Platelet Volume 7.3; Monocytes # (A) 0.4 k/uL (0-1.0); Monocytes % (A) 5 %; Neutrophils # (A) 4.2 k/uL (1.3-7.7); Neutrophils % (A) 60 %; Platelet Count 358 k/uL (150-450); RBC 4.58 m/uL (3.80-5.40); RDW 14.1 % (11.5-15.5); WBC 7.1 k/uL (3.8-10.6)
[2024-02-16 07:12] LABS: ALT 15 U/L (4-34); AST 33 U/L (14-36); African American GFR (CKD) 84 (>60 ml/min/1.73 sqM); Albumin 3.6 g/dL (3.5-5.0); Alkaline Phosphatase 95 U/L (38-126); Anion Gap 4 mmol/L; Blood Urea Nitrogen 8 mg/dL (7-17); Calcium 8.9 mg/dL (8.4-10.2); Carbon Dioxide 28 mmol/L (22-30); Chloride 101 mmol/L (98-107); Glucose 83 mg/dL (74-99); Non-African American GFR(CKD) 73 (>60 ml/min/1.73 sqM); Sodium 133 mmol/L (137-145); Total Bilirubin 0.5 mg/dL (0.2-1.3)
[2024-02-16] MEDS: PANTOPRAZOLE 40 MG/10 ML VIAL IV SCH (08:20)
[2024-02-16] MEDS: metroNIDAZOLE 500 MG TAB PO SCH (08:20)
[2024-02-16] MEDS: CYANOCOBALAMIN 500 MCG TAB PO SCH (08:20)
[2024-02-16] MEDS: CALCIUM CARB-VIT D 500 MG-5 MCG TAB PO SCH (08:20)
[2024-02-16] MEDS: ESCITALOPRAM 20 MG TAB PO SCH (08:20)
[2024-02-16] MEDS: CHOLECALCIFEROL 25 MCG (1000 IU) TABLET PO SCH (08:20)
[2024-02-16] MEDS: HEPARIN SODIUM,PORCINE 5,000 UNIT/ML 1 ML VIAL SQ SCH (08:21)
[2024-02-16] MEDS ORDERED: [UNRECOGNIZED DRUG - OTHER] PO SCH (09:00)
[2024-02-16] MEDS ORDERED: TURMERIC CURCUMIN PO SCH (09:00)
[2024-02-16] MEDS: BARIUM SULFATE 2% - 450 ML ORAL.SUSP BOTTLE PO PRN (09:38)
--- NOTE | 2024-02-16 10:36 | P.GSCN ---
History of Present Illness Consult date: 02/16/24 History of present illness: CHIEF COMPLAINT: Vomiting and abdominal pain HISTORY OF PRESENT ILLNESS: This is a 83-year-old female who presented to the hospital with complaints of vomiting and abdominal pain over the last 2 weeks. She also had not been feeling well. She did report a couple episodes of diarrhea. Patient with a known history of diverticulitis. Past surgical history does include hysterectomy. CT scan had reported evidence of a 2.7 x 1.8 centimeter low-density collection near the pelvic floor. Patient does have evidence of left lower quadrant abdominal pain. Patient seen and examined with Dr. Gill PAST MEDICAL HISTORY: Hyperlipidemia, Osteoarthritis (OA), Thyroid Disorder, diverticulitis, hx c-diff 10/2013 PAST SURGICAL HISTORY: Hysterectomy, right breast lumpectomy, left knee replacement, heart catheterization MEDICATIONS: See below ALLERGIES: See below SOCIAL HISTORY: No illicit drug use. REVIEW OF SYSTEMS: CONSTITUTIONAL: Denies fever or chills. HEENT: Denies blurred vision, vision changes, or eye pain. Denies hemoptysis CARDIOVASCULAR: Denies chest pain or pressure. RESPIRATORY: No shortness of breath. GASTROINTESTINAL: See HPI for pertinent findings HEMATOLOGIC: Denies bleeding disorders. GENITOURINARY: Denies any blood in urine or increased urinary frequency. SKIN: Denies pruitis. Denies rash. PHYSICAL EXAM: VITAL SIGNS: Reviewed GENERAL: Well-developed in no acute distress. ABDOMEN: Soft. Nondistended. Tenderness palpation to the left lower quadrant NEUROLOGIC: Alert and oriented. Cranial nerves II through XII grossly intact. LABORATORY DATA: WBC 11.6 down to 7.1 Hgb 13.2 platelets 358 INR 0.9 Sodium 126 up to 133 potassium 4.0 creatinine 0.77 IMAGING: CT scan abdomen pelvis 2.7 x 1.8 cm low density collection near the pelvic floor could be a Ray cyst or abscess. Diverticulosis without diverticulitis Pelvic ultrasound reports fluid collection suggested by CT is not seen ASSESSMENT: 1. Fluid collection noted on CAT scan is most likely due to a diverticular abscess 2. History of diverticulitis PLAN: -CT scan abdomen pelvis with oral contrast ordered for further evaluation of fluid collection -Antibiotics per infectious disease. Patient currently on Flagyl -Continue clear liquid diet -Continue to monitor Physician Lithographic Etcher note has been reviewed by physician. Signing provider agrees with the documented findings, assessment, and plan of care. Past Medical History Past Medical History: Hyperlipidemia, Osteoarthritis (OA), Thyroid Disorder Additional Past Medical History / Comment(s): diverticulitis, hx c-diff 10/2013 History of Any Multi-Drug Resistant Organisms: None Reported Year Discovered:: 10/2013 MDRO Source:: stool Past Surgical History: Breast Surgery, Heart Catheterization, Hysterectomy, Joint Replacement, Tonsillectomy Additional Past Surgical History / Comment(s): left knee replacement, rt breast lumpectomy Past Anesthesia/Blood Transfusion Reactions: No Reported Reaction Additional Past Anesthesia/Blood Transfusion Reaction / Comm: Pt has never had a blood transfusion. Past Psychological History: Depression Additional Psychological History / Comment(s): . Smoking Status: Never smoker Past Alcohol Use History: None Reported Past Drug Use History: None Reported - Past Family History Daughter(s) Family Medical History: Cancer Father Family Medical History: Cancer Additional Family Medical History / Comment(s): testicular Mother Additional Family Medical History / Comment(s): Mother after wisdom tooth pulled and ended up with blood poisoning. Medications and Allergies Home Medications Medication Instructions Recorded Confirmed Type [facility]italopram [[facility]] [facility] 02/15/24 History Acetaminophen Tab [Tylenol Tab] 500 - 1,000 mg [facility] 02/15/24 02/15/24 History Calcium 333mg/Magnesium 133mg/Zinc 1 tab PO DAILY 02/15/24 02/15/24 History 5mg/Vitamin D3 5mcg Cholecalciferol (Vitamin D3) 50 mcg PO DAILY 02/15/24 02/15/24 History [Vitamin D3 (50 Mcg = 2000 Iu)] Cyanocobalamin [Vitamin B-12] 500 mcg PO DAILY 02/15/24 02/15/24 History Elderberry 50mg 1 tab PO DAILY 02/15/24 02/15/24 History Furosemide [Lasix] 20 mg PO -[facility] 02/15/24 02/15/24 History Levothyroxine Sodium [Synthroid] 88 mcg PO DAILY 02/15/24 02/15/24 History Potassium Chloride ER [K-Dur 20] 20 meq PO -[facility] 02/15/24 02/15/24 History Rosuvastatin [Crestor] 10 mg PO HS 02/15/24 02/15/24 History Turmeric Curcumin 1500mg W/10mg 1 tab PO DAILY 02/15/24 02/15/24 History Bioperine Vitamin C 100mg 1 tab PO DAILY 02/15/24 02/15/24 History Allergies Allergy/AdvReac Type Severity Reaction Status Date / Time iodine Allergy Severe Abdominal Verified 02/15/24 13:45 Pain/hives clindamycin Allergy Nausea & Verified 02/15/24 13:45 Vomiting & Diarrhea codeine Allergy Rash/Hives Verified 02/15/24 13:45 oxycodone [From OxyContin] Allergy Unknown Verified 02/15/24 13:46 Penicillins Allergy Rash/Hives Verified 02/15/24 13:45 prednisone Allergy Unknown Verified 02/15/24 13:46 shellfish derived [Shellfish] Allergy Rash/Hives Verified 02/15/24 13:45 amoxicillin AdvReac Rash/Hives Verified 02/15/24 13:45 hydrocodone bitartrate AdvReac Nausea & Verified 02/15/24 13:45 [From Vicodin] Vomiting & Diarrhea venom-honey bee AdvReac Chest Pain Verified 02/15/24 13:45 [bee venom (honey bee)] Surgical - Exam Vital Signs Temp Pulse Resp BP Pulse Ox 97.5 F L 89 16 136/83 95 02/15/24 12:25 02/15/24 12:25 02/15/24 12:25 02/15/24 12:25 02/15/24 12:25 Results - Labs 02/16/24 06:14 02/16/24 06:14 Abnormal Lab Results - Last 24 Hours (Table) 02/15/24 02/15/24 02/16/24 Range/Units 13:07 13:07 06:14 WBC 11.6 H (3.8-10.6) k/uL Neutrophils # 9.7 H (1.3-7.7) k/uL Sodium 126 L 133 L (137-145) mmol/L Chloride 96 L (98-107) mmol/L Glucose 103 H (74-99) mg/dL Total Protein 5.8 L 6.0 L (6.3-8.2) g/dL Diabetes panel 02/15/24 02/16/24 Range/Units 13:07 06:14 Sodium 126 L 133 L (137-145) mmol/L Potassium 4.2 4.0 (3.5-5.1) mmol/L Chloride 96 L 101 (98-107) mmol/L Carbon Dioxide 27 28 (22-30) mmol/L BUN 11 8 (7-17) mg/dL Creatinine 0.63 0.77 (0.52-1.04) mg/dL Glucose 103 H 83 (74-99) mg/dL Calcium 8.8 8.9 (8.4-10.2) mg/dL AST 34 33 (14-36) U/L ALT 15 15 (4-34) U/L Alkaline Phosphatase 85 95 (38-126) U/L Total Protein 5.8 L 6.0 L (6.3-8.2) g/dL Albumin 3.5 3.6 (3.5-5.0) g/dL Calcium panel 02/15/24 02/16/24 Range/Units 13:07 06:14 Calcium 8.8 8.9 (8.4-10.2) mg/dL Albumin 3.5 3.6 (3.5-5.0) g/dL Pituitary panel 02/15/24 02/16/24 Range/Units 13:07 06:14 Sodium 126 L 133 L (137-145) mmol/L Potassium 4.2 4.0 (3.5-5.1) mmol/L Chloride 96 L 101 (98-107) mmol/L Carbon Dioxide 27 28 (22-30) mmol/L BUN 11 8 (7-17) mg/dL Creatinine 0.63 0.77 (0.52-1.04) mg/dL Glucose 103 H 83 (74-99) mg/dL Calcium 8.8 8.9 (8.4-10.2) mg/dL Adrenal panel 02/15/24 02/16/24 Range/Units 13:07 06:14 Sodium 126 L 133 L (137-145) mmol/L Potassium 4.2 4.0 (3.5-5.1) mmol/L Chloride 96 L 101 (98-107) mmol/L Carbon Dioxide 27 28 (22-30) mmol/L BUN 11 8 (7-17) mg/dL Creatinine 0.63 0.77 (0.52-1.04) mg/dL Glucose 103 H 83 (74-99) mg/dL Calcium 8.8 8.9 (8.4-10.2) mg/dL Total Bilirubin 0.5 0.5 (0.2-1.3) mg/dL AST 34 33 (14-36) U/L ALT 15 15 (4-34) U/L Alkaline Phosphatase 85 95 (38-126) U/L Total Protein 5.8 L 6.0 L (6.3-8.2) g/dL Albumin 3.5 3.6 (3.5-5.0) g/dL
--- NOTE | 2024-02-16 13:42 | P.PN ---
Subjective Progress Note Date: 02/16/24 Hospital Course: 83-year-old female with history of diverticulitis, hypothyroidism, dyslipidemia, depression presenting with abdominal pain. Vital signs are within normal limits. WBC 11.6, sodium 126, chloride 96, lipase 134, creatinine 0.63. Abdomen pelvis CT shows 2.7 x 1.8 cm oval density collection near the pelvic floor could be Ray cyst or abscess, diverticulosis without acute div erticulitis. Pelvic ultrasound did not see the fluid collection. General surgery consulted. Patient started on antibiotics. ID also consulted. Subjective: Patient seen and examined at bedside. No acute events overnight. Denies any current abdominal pain. Pertinent positives and negatives as discussed above, a complete review of systems was performed and all other systems are negative. Vitals Signs Reviewed. General: Nontoxic, no distress, appears at stated age Derm: Warm, dry Head: Atraumatic, normocephalic, symmetric Eyes: EOMI, no lid lag, anicteric sclera Mouth: No lip lesion, mucus membranes moist Cardiovascular: S1S2 reg, no murmur Lungs: CTA bilateral, no rhonchi, no rales, no accessory muscle use Abdominal: Soft, nontender to palpation, no guarding, no appreciable orga nomegaly Ext: No gross muscle atrophy, no edema, no contractures Neuro: CN II-XI grossly intact, no focal neuro deficits Psych: Alert, oriented, appropriate affect Data Reviewed Today: Pertinent Labs: WBC 7.1, hemoglobin 13.2, sodium 133, creatinine 0.77 Imaging: Pelvic ultrasound does not show any fluid collection Assessment and Plan: Active: Suspected diverticular abscess History of diverticulitis Leukocytosis, resolved -General surgery note reviewed, patient started on clear liquid diet -Continue Flagyl 500 mg oral 3 times daily, levofloxacin 500 mg IV every 24 hours added -ID has been consulted -Blood culture has been pending -Zofran as needed for nausea Hypovolemic hyponatremia -Continue normal saline at 75 cc an hour -Repeat BMP again tomorrow Chronic: Hypothyroidism Dyslipidemia Depression DVT ppx: Subcu heparin Code status: Full code Anticipated discharge place: Pending clinical course Anticipated discharge time: Pending clinical course Objective - Vital Signs Vital signs: Vital Signs Temp 97.4 F L 02/16/24 07:00 Pulse 69 02/16/24 07:00 Resp 16 02/16/24 07:00 BP 129/69 02/16/24 07:00 Pulse Ox 94 L 02/16/24 07:00 FiO2 Intake & Output 02/15/24 02/16/24 02/16/24 18:59 06:59 18:59 Weight 86.183 kg 86.183 kg Other: Voiding Method Toilet # Voids 1 - Labs CBC & Chem 7: 02/16/24 06:14 02/16/24 06:14 Labs: Abnormal Lab Results - Last 24 Hours (Table) 02/15/24 02/16/24 Range/Units 13:07 06:14 Sodium 126 L 133 L (137-145) mmol/L Chloride 96 L (98-107) mmol/L Glucose 103 H (74-99) mg/dL Total Protein 5.8 L 6.0 L (6.3-8.2) g/dL
--- NOTE | 2024-02-16 14:13 | CT ---
EXAMINATION TYPE: CT abdomen pelvis wo con DATE OF EXAM: 02/16/2024 COMPARISON: 02/08/2024 HISTORY: 83-year-old female abdominal pain, abscess CT DLP: 761.5 mGycm. Automated exposure control for dose reduction was used. TECHNIQUE: Contiguous axial scanning of the abdomen and pelvis without IV contrast. Coronal and sagit anthony reconstructions performed. FINDINGS: Heart upper limits of normal size without pericardial effusion. Some strandy suspected scarring of th e lower lungs. No pleural effusion. Small hiatal hernia. Noncontrast appearance of the liver, gallbladder, adrenal glands, kidneys, spleen, and pancreas show no gross abnormality. No dilated small bowel, free fluid, or free air. No mesenteric or retroperitoneal lymphadenopathy. While the appendix is not identified, no secondary findings of acute appendicitis in the right lower quadrant. Oral contrast progressed into the proximal sigmoid colon. There is mild stool. Sigmoid diverticulosis . Circumferential wall thickening throughout the sigmoid colon may relate to nondistention or chronic diverticulitis. No focal inflammation is seen. Overall appearance is relatively similar to prior exa m. Mild circumferential bladder wall thickening. There is a 2.5 cm cystic area at or just above the right perineum. This seems to result in some leftw horacio deviation of the urethra. Multiple pelvic phleboliths. Uterus surgically absent. Both ovaries are visualized. Otherwise, no abn ormal fluid collection the pelvis or pelvic lymphadenopathy. 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 IMPRESSION: 1. Similar appearance to the 2.5 cm cystic lesion right pelvic floor/right perineum just below the bl adder. This seems to result in some leftward deviation of the urethra. Ray duct cyst or atypical urethral diverticulum are considerations. Abscess considered less likely but not entirely excluded. C onsider urology and/or HEARING SPECIALIST evaluation. Pelvic MRI may also be useful to better characterize this s tructure. 2. Sigmoid diverticulosis with mild wall thickening. The mild wall thickening may be due to nondisten tion or some chronic diverticulitis. No focal inflammation seen. 3. Small hiatal hernia.
[2024-02-16] MEDS: LEVOFLOXACIN 500MG-D5W PMX 500 MG in DEXTROSE/WATER 1 100ML.BAG IVPB SCH (15:44)
[2024-02-16] MEDS: ONDANSETRON 4 MG/2 ML VIAL IVP PRN (19:57)
--- NOTE | 2024-02-17 07:04 | P.CONS ---
History of Present Illness - Reason for Consult Consult date: 02/16/24 Pelvic floor collection Requesting physician: Rai Gilbert - Chief Complaint Nausea and abdominal pain x few days - History of Present Illness Patient is 83-year-old female with a past medical history significant for hyperlipidemia osteoarthritis history of diverticulitis and C. difficile colitis depression presenting to the hospital for evaluation of nausea which has been going on for about 2 weeks along with decreased appetite and did have a small amount of emesis and few episodes of diarrhea. Also complaining of some epigastric discomfort mostly dull aching pain mild to moderate without any radiation with the symptoms the patient has been evaluated on presentation to the hospital patient was afebrile and no fever has been recorded subsequently p atient was not tachycardic hypotensive or hypoxic and no need for supplemental oxygen he did have a white count of 11.6 with a left shift creatinine 0.63 electrolytes are normal liver enzymes normal amylase lipase were normal patient did have abdominal pelvis CT which shows 2.7X 1.8 cm low-density collection near the pelvic floor could be a Ray cyst or abscess, patient was started on Levaquin and Flagyl because of her penicillin allergy infectious was consulted for further management of antibiotic therapy Review of Systems Positive point and negatives has been mentioned in the HPI, complete review of systems was performed and all other systems are negative Past Medical History Past Medical History: Hyperlipidemia, Osteoarthritis (OA), Thyroid Disorder Additional Past Medical History / Comment(s): diverticulitis, hx c-diff 10/2013 History of Any Multi-Drug Resistant Organisms: None Reported Year Discovered:: 10/2013 MDRO Source:: stool Past Surgical History: Breast Surgery, Heart Catheterization, Hysterectomy, Joint Replacement, Tonsillectomy Additional Past Surgical History / Comment(s): left knee replacement, rt breast lumpectomy Past Anesthesia/Blood Transfusion Reactions: No Reported Reaction Additional Past Anesthesia/Blood Transfusion Reaction / Comm: Pt has never had a blood transfusion. Past Psychological History: Depression Additional Psychological History / Comment(s): . Smoking Status: Never smoker Past Alcohol Use History: None Reported Past Drug Use History: None Reported - Past Family History Daughter(s) Family Medical History: Cancer Father Family Medical History: Cancer Additional Family Medical History / Comment(s): testicular Mother Additional Family Medical History / Comment(s): Mother after wisdom tooth pulled and ended up with blood poisoning. Medications and Allergies Home Medications Medication Instructions Recorded Confirmed Type Escitalopram [Lexapro] 20 mg PO [facility] 04/17/19 02/15/24 History Acetaminophen Tab [Tylenol] 500 - 1,000 mg PO [facility] 02/15/24 02/15/24 History Calcium 333mg/Magnesium 133mg/Zinc 1 tab PO DAILY 02/15/24 02/15/24 History 5mg/Vitamin D3 5mcg Cholecalciferol (Vitamin D3) 50 mcg PO DAILY 02/15/24 02/15/24 History [Vitamin D3 (50 Mcg = 2000 Iu)] Cyanocobalamin [Vitamin B-12] 500 mcg PO DAILY 02/15/24 02/15/24 History Elderberry 50mg 1 tab PO DAILY 02/15/24 02/15/24 History Furosemide [Lasix] 20 mg PO [facility] 02/15/24 02/15/24 History Levothyroxine Sodium [Synthroid] 88 mcg PO DAILY 02/15/24 02/15/24 History Potassium Chloride ER [K-Dur 20] 20 meq PO [facility] 02/15/24 02/15/24 History Rosuvastatin [Crestor] 10 mg PO HS 02/15/24 02/15/24 History Turmeric Curcumin 1500mg W/10mg 1 tab PO DAILY 02/15/24 02/15/24 History Bioperine Vitamin C 100mg 1 tab PO DAILY 02/15/24 02/15/24 History Pantoprazole [Protonix] 40 mg PO DAILY 30 Days #30 tab 02/23/24 Rx cefUROXime axetiL [Ceftin] 500 mg PO BID 10 Days #20 tab 02/23/24 Rx metroNIDAZOLE [Flagyl] 500 mg PO TID 10 Days #30 tab 02/23/24 Rx polyethylene glycoL 3350 [Miralax] 17 gm PO DAILY 30 Days #30 packet 02/23/24 Rx Allergies Allergy/AdvReac Type Severity Reaction Status Date / Time iodine Allergy Severe Abdominal Verified 02/15/24 13:45 Pain/hives clindamycin Allergy Nausea & Verified 02/15/24 13:45 Vomiting & Diarrhea codeine Allergy Rash/Hives Verified 02/15/24 13:45 oxycodone [From OxyContin] Allergy Unknown Verified 02/15/24 13:46 prednisone Allergy Unknown Verified 02/15/24 13:46 shellfish derived [Shellfish] Allergy Rash/Hives Verified 02/15/24 13:45 amoxicillin AdvReac Rash/Hives Verified 02/15/24 13:45 hydrocodone bitartrate AdvReac Nausea & Verified 02/15/24 13:45 [From Vicodin] Vomiting & Diarrhea venom-honey bee AdvReac Chest Pain Verified 02/15/24 13:45 [bee venom (honey bee)] Physical Exam Vitals: Vital Signs Temp Pulse Pulse Resp BP BP Pulse Ox 02/16/24 14:33 97.5 F L 60 16 147/77 94 L 02/16/24 07:00 97.4 F L 69 16 129/69 94 L 02/16/24 02:00 97.9 F 69 137/68 95 02/15/24 21:30 98.6 F 75 20 135/67 96 02/15/24 20:20 67 14 131/69 96 02/15/24 18:00 73 14 143/80 98 Intake and Output 02/15/24 02/16/24 02/16/24 22:59 06:59 14:59 Other: Voiding Method Toilet # Voids 1 Weight 86.183 kg GENERAL DESCRIPTION: Elderly female lying in bed, no distress. No tachypnea or accessory muscle of respiration use. HEENT: Shows Pallor , no scleral icterus. Oral mucous membrane is dry. No pharyngeal erythema or thrush NECK: Trachea central, no thyromegaly. LUNGS: Unlabored breathing. Clear to auscultation anteriorly. No wheeze or crackle. HEART: S1, S2, regular rate and rhythm. No loud murmur ABDOMEN: Soft, mild tenderness , no guarding or rigidity, no organomegaly EXTREMITIES: No edema of feet. SKIN: No rash, no masses palpable. NEUROLOGICAL: The patient is awake, alert, oriented x3, mood and affect normal. Results CBC & Chem 7: 02/22/24 08:08 02/23/24 07:37 Labs: Abnormal Lab Results - Last 24 Hours (Table) 02/16/24 Range/Units 06:14 Sodium 133 L (137-145) mmol/L Total Protein 6.0 L (6.3-8.2) g/dL Assessment and Plan (1) Abnormal computed tomography of abdomen and pelvis Status: Acute Code(s): R93.5 - ABN FINDINGS ON DX IMAGING OF ABD REGIONS, INC RETROPERITON SNOMED Code(s): 22796837470426258 (2) Allergy to multiple antibiotics Status: Acute Code(s): Z88.1 - ALLERGY STATUS TO OTHER ANTIBIOTIC AGENTS SNOMED Code(s): 596378004 (3) Leukocytosis Status: Acute Code(s): D72.829 - ELEVATED WHITE BLOOD CELL COUNT, UNSPECIFIED SNOMED Code(s): 911964237 Plan: 1patient presented to hospital predominantly with abdominal symptoms and this patient who did have a feeling of nausea vomiting and did have some diarrhea also some abdominal discomfort with abnormal CT question of abscess versus cyst patient did have a mild elevated white count but no fever underlying infection at the time excluded and will need to cover for enteric gram-negative both aerobes and anaerobes. 2patient with penicillin allergy that will limit the number of antibiotics safe to use. 3we will continue with the Flagyl however switch Levaquin to Rocephin 2 g daily while waiting for the workup to be completed. 4check inflammatory markers. We will follow on clinical condition and cultures to further adjust medication if needed Thank you for this consultation we will follow the patient along with you Dictation was produced using [employer] dictation software. please excuse any grammatical, word or spelling errors. Time with Patient: Greater than 30
[2024-02-17 09:14] LABS: Basophils % (A) 0 %; Eosinophils # (A) 0.1 k/uL (0-0.7); Eosinophils % (A) 1 %; HCT 37.4 % (34.0-46.0); HGB 11.9 gm/dL (11.4-16.0); Lymphocytes # (A) 1.5 k/uL (1.0-4.8); Lymphocytes % (A) 19 %; MCH 28.4 pg (25.0-35.0); MCHC 31.8 g/dL (31.0-37.0); MCV 89.4 fL (80.0-100.0); Mean Platelet Volume 7.7; Monocytes # (A) 0.4 k/uL (0-1.0); Monocytes % (A) 5 %; Neutrophils % (A) 74 %; Platelet Count 296 k/uL (150-450); RBC 4.19 m/uL (3.80-5.40); RDW 14.3 % (11.5-15.5); WBC 8.2 k/uL (3.8-10.6)
[2024-02-17 09:27] LABS: African American GFR (CKD) >90 (>60 ml/min/1.73 sqM); Anion Gap 4 mmol/L; Blood Urea Nitrogen 5 mg/dL (7-17); C Reactive Protein 1.1 mg/dL (<1.0); Calcium 8.6 mg/dL (8.4-10.2); Carbon Dioxide 27 mmol/L (22-30); Chloride 100 mmol/L (98-107); Glucose 73 mg/dL (74-99); Non-African American GFR(CKD) 81 (>60 ml/min/1.73 sqM); Potassium 3.8 mmol/L (3.5-5.1); Sodium 131 mmol/L (137-145)
[2024-02-17 11:53] LABS: Glucose,Whole Blood 85 mg/dL (70-110)
[2024-02-17 12:07] LABS: Appearance,Urine Clear (Clear); Bilirubin,Urine Negative (Negative); Blood,Urine Negative (Negative); Color,Urine Colorless; Glucose,Urine (UA) Negative (Negative); Ketones,Urine 1+ (Negative); Leukocyte Esterase,Urine Negative (Negative); Nitrite,Urine Negative (Negative); Protein,Urine Negative (Negative); Specific Gravity,Urine 1.003 (1.001-1.035); Urobilinogen,Urine <2.0 mg/dL (<2.0)
--- NOTE | 2024-02-17 12:13 | P.PN ---
Subjective Progress Note Date: 02/17/24 CHIEF COMPLAINT: Vomiting and abdominal pain HISTORY OF PRESENT ILLNESS: Patient has had improvement in her abdominal pain. She does feel nauseated. No appetite. She has had no further vomiting. And di arrhea has resolved. No bowel movement since admission. Patient denies any urinary symptoms. Afebrile. WBC 8.2 PHYSICAL EXAM: VITAL SIGNS: Reviewed. GENERAL: Well-developed in no acute distress. ABDOMEN: Soft. Nondistended. Nontender. NEUROLOGIC: Alert and oriented. Cranial nerves II through XII grossly intact. ASSESSMENT: 1. Abdominal pain with vomiting 2. Low probability of diverticular abscess 3. 2.5 cm cystic lesion right pelvic floor/right perineum just below the bladder and this seems to result in some leftward deviation of the urethra noted on CT 4. History of diverticulitis PLAN: -Continue to observe -Awaiting urology evaluation and recommendations -Continue antibiotics per infectious disease Physician Hotel Attendant note has been reviewed by physician. Signing provider agrees with the documented findings, assessment, and plan of care. Objective - Vital Signs Vital signs: Vital Signs Temp 98.3 F 02/17/24 07:05 Pulse 64 02/17/24 07:05 Resp 15 02/17/24 07:05 BP 153/76 02/17/24 07:05 Pulse Ox 94 L 02/17/24 07:05 FiO2 Intake & Output 02/16/24 02/17/24 02/17/24 18:59 06:59 18:59 Intake Total 10 Balance 10 Intake: IV 10 Invasive Line 1 10 Other: Voiding Method Toilet # Voids 2 1 # Bowel Movements 0 - Labs CBC & Chem 7: 02/17/24 08:42 02/17/24 08:42 Labs: Abnormal Lab Results - Last 24 Hours (Table) 02/17/24 Range/Units 08:42 Sodium 131 L (137-145) mmol/L BUN 5 L (7-17) mg/dL Glucose 73 L (74-99) mg/dL C-Reactive Protein 1.1 H (<1.0) mg/dL
--- NOTE | 2024-02-17 14:36 | P.PN ---
Subjective Progress Note Date: 02/17/24 Hospital Course: 83-year-old female with history of diverticulitis, hypothyroidism, dyslipidemia, depression presenting with abdominal pain. Vital signs are within normal limits. WBC 11.6, sodium 126, chloride 96, lipase 134, creatinine 0.63. Abdomen pelvis CT shows 2.7 x 1.8 cm oval density collection near the pelvic floor could be Ray cyst or abscess, diverticulosis without acute diverticulitis. Pelvic ultrasound did not see the fluid collection. General surgery consulted. Patient started on antibiotics. ID also consulted. Subjective: Patient seen and examined at bedside. No acute events overnight. Denies any current abdominal pain. Denies n/v. Gen: In NAD, non-toxic HEENT: normocephalic, atraumatic, hearing acuity is intant, mucous membranes moist CVS: perfusing all extremities well, no pitting edema, Respiratory: symmetric chest expansion, no accessory muscle use, GI: soft, NTTP, ND, : no suprapubic tenderness, no CVA tenderness MSK/Derm: no rashes, cyanosis Neuro: CN II-XII intact, no motor weakness, Psych: cooperative, euthymic mood, judgment and insight is intact Assessment and Plan: Active: Suspected diverticular abscess History of diverticulitis Leukocytosis, resolved -General surgery note reviewed, patient started on clear liquid diet -Continue Flagyl 500 mg oral 3 times daily, ceftriaxone 2 g IV every 24 hours added -ID has been consulted -Blood culture is no growth to date at 24 hours -Zofran as needed for nausea -Awaiting urology consultation Hypovolemic hyponatremia -Continue normal saline at 75 cc an hour -Repeat BMP again tomorrow Chronic: Hypothyroidism Dyslipidemia Depression DVT ppx: Subcu heparin Code status: Full code Anticipated discharge place: Pending clinical course Anticipated discharge time: Pending clinical course Objective - Vital Signs Vital signs: Vital Signs Temp 98.3 F 02/17/24 07:05 Pulse 64 02/17/24 07:05 Resp 15 02/17/24 07:05 BP 153/76 02/17/24 07:05 Pulse Ox 94 L 02/17/24 07:05 FiO2 Intake & Output 02/16/24 02/17/24 02/17/24 18:59 06:59 18:59 Intake Total 10 Balance 10 Intake: IV 10 Invasive Line 1 10 Other: Voiding Method Toilet # Voids 2 1 # Bowel Movements 0 - Labs CBC & Chem 7: 02/17/24 08:42 02/17/24 08:42 Labs: Abnormal Lab Results - Last 24 Hours (Table) 02/17/24 02/17/24 Range/Units 08:42 11:56 Sodium 131 L (137-145) mmol/L BUN 5 L (7-17) mg/dL Glucose 73 L (74-99) mg/dL C-Reactive Protein 1.1 H (<1.0) mg/dL Urine Ketones 1+ H (Negative) Microbiology - Last 24 Hours (Table) 02/16/24 06:28 Blood Culture - Preliminary Blood
--- NOTE | 2024-02-17 15:53 | P.PN ---
Subjective Progress Note Date: 02/17/24 Principal diagnosis: Reason for follow-up is leukocytosis abnormal pelvic fluid collection Patient is 83-year-old female with a past medical history significant for hyperlipidemia osteoarthritis history of diverticulitis and C. difficile colitis depression presenting to the hospital for evaluation of nausea and epigastric discomfort did have abnormality on the CT abdominal pelvis with a question of no fluid collection near the pelvic floor. On today's evaluation that is 02/17/2024,the patient remains to be afebrile, patient is on room air not requiring supplemental oxygen and denies any shortness of breath no chest pain or cough.Patient did have some improvement in her nausea and vomiting some abdominal discomfort no diarrhea. Patient white count normalized to 8.2, creatinine 0.71 urine has been negative blood cultures pending Objective - Vital Signs Vital signs: Vital Signs Temp 97.6 F 02/17/24 15:34 Pulse 66 02/17/24 15:34 Resp 16 02/17/24 15:34 BP 169/73 02/17/24 15:34 Pulse Ox 95 02/17/24 15:34 FiO2 Intake & Output 02/16/24 02/17/24 02/17/24 18:59 06:59 18:59 Intake Total 10 Output Total 1600 Balance 10 -1600 Intake: IV 10 Invasive Line 1 10 Output: Urine 1600 Other: Voiding Method Toilet # Voids 2 1 # Bowel Movements 0 - Exam GENERAL DESCRIPTION: An elderly female lying in bed in no distress RESPIRATORY SYSTEM: Unlabored breathing , decreased breath sounds at bases HEART: S1 S2 regular rate and rhythm , ABDOMEN: Soft , no tenderness EXTREMITIES: No edema feet - Labs CBC & Chem 7: 02/17/24 08:42 02/17/24 08:42 Labs: Abnormal Lab Results - Last 24 Hours (Table) 02/17/24 02/17/24 Range/Units 08:42 11:56 Sodium 131 L (137-145) mmol/L BUN 5 L (7-17) mg/dL Glucose 73 L (74-99) mg/dL C-Reactive Protein 1.1 H (<1.0) mg/dL Urine Ketones 1+ H (Negative) Microbiology - Last 24 Hours (Table) 02/16/24 06:28 Blood Culture - Preliminary Blood Assessment and Plan (1) Leukocytosis Current Visit: Yes Status: Acute Code(s): D72.829 - ELEVATED WHITE BLOOD CELL COUNT, UNSPECIFIED SNOMED Code(s): 290896869 (2) Allergy to multiple antibiotics Current Visit: Yes Status: Acute Code(s): Z88.1 - ALLERGY STATUS TO OTHER ANTIBIOTIC AGENTS SNOMED Code(s): 466185222 (3) Abnormal computed tomography of abdomen and pelvis Current Visit: Yes Status: Acute Code(s): R93.5 - ABN FINDINGS ON DX IMAGING OF ABD REGIONS, INC RETROPERITON SNOMED Code(s): 64018411154530113 Plan: 1patient presented to hospital predominantly with abdominal symptoms and this patient who did have a feeling of nausea vomiting and did have some diarrhea also some abdominal discomfort with abnormal CT question of abscess versus cyst patient did have a mild elevated white count but no fever underlying infection a t the time excluded and will need to cover for enteric gram-negative both aerobes and anaerobes. 2patient with penicillin allergy that will limit the number of antibiotics safe to use. 3patient has been evaluated by surgery low clinical suspicion is for diverticular abscess urology has been consulted await their evaluation, for now we will continue with Rocephin and Flagyl and monitor clinical course closely Dictation was produced using [employer] dictation software. please excuse any grammatical, word or spelling errors. Time with Patient: Less than 30
--- NOTE | 2024-02-17 16:50 | P.GSCN ---
History of Present Illness Consult date: 02/17/24 Reason for Consult: Periurethral cystic mass Requesting physician: Irma Jones History of present illness: The patient is an 83-year-old white female admitted with crampy abdominal pain, nausea and vomiting. CT scan imaging has shown a 2.5 cm cystic lesion to the right of the urethra. I am consulted for this reason. The patient denies pelvic pain, dysuria, and hematuria. She denies any prior history of UTIs or urolithiasis. She does report minimal urinary urge incontinence, for which she wears 1 pad daily as a precaution. She is not sexually active. Review of Systems - Constitutional Denies chills, Denies fever - Gastrointestinal Reports as per HPI - Genitourinary Genitourinary: Reports as per HPI Past Medical History Past Medical History: Hyperlipidemia, Osteoarthritis (OA), Thyroid Disorder Additional Past Medical History / Comment(s): diverticulitis, hx c-diff 10/2013 History of Any Multi-Drug Resistant Organisms: None Reported Year Discovered:: 10/2013 MDRO Source:: stool Past Surgical History: Breast Surgery, Heart Catheterization, Hysterectomy, Joint Replacement, Tonsillectomy Additional Past Surgical History / Comment(s): left knee replacement, rt breast lumpectomy Past Anesthesia/Blood Transfusion Reactions: No Reported Reaction Additional Past Anesthesia/Blood Transfusion Reaction / Comm: Pt has never had a blood transfusion. Past Psychological History: Depression Additional Psychological History / Comment(s): . Smoking Status: Never smoker Past Alcohol Use History: None Reported Past Drug Use History: None Reported - Past Family History Daughter(s) Family Medical History: Cancer Father Family Medical History: Cancer Additional Family Medical History / Comment(s): testicular Mother Additional Family Medical History / Comment(s): Mother after wisdom tooth pulled and ended up with blood poisoning. Medications and Allergies Home Medications Medication Instructions Recorded Confirmed Type Escitalopram [Lexapro] 20 mg PO PC-BRKFST 04/17/19 02/15/24 History Acetaminophen Tab [Tylenol Tab] 500 - 1,000 mg PO PC-BRKFST 02/15/24 02/15/24 History Calcium 333mg/Magnesium 133mg/Zinc 1 tab PO DAILY 02/15/24 02/15/24 History 5mg/Vitamin D3 5mcg Cholecalciferol (Vitamin D3) 50 mcg PO DAILY 02/15/24 02/15/24 History [Vitamin D3 (50 Mcg = 2000 Iu)] Cyanocobalamin [Vitamin B-12] 500 mcg PO DAILY 02/15/24 02/15/24 History Elderberry 50mg 1 tab PO DAILY 02/15/24 02/15/24 History Furosemide [Lasix] 20 mg PO PC-BRKFST 02/15/24 02/15/24 History Levothyroxine Sodium [Synthroid] 88 mcg PO DAILY 02/15/24 02/15/24 History Potassium Chloride ER [K-Dur 20] 20 meq PO PC-BRKFST 02/15/24 02/15/24 History Rosuvastatin [Crestor] 10 mg PO HS 02/15/24 02/15/24 History Turmeric Curcumin 1500mg W/10mg 1 tab PO DAILY 02/15/24 02/15/24 History Bioperine Vitamin C 100mg 1 tab PO DAILY 02/15/24 02/15/24 History Allergies Allergy/AdvReac Type Severity Reaction Status Date / Time iodine Allergy Severe Abdominal Verified 02/15/24 13:45 Pain/hives clindamycin Allergy Nausea & Verified 02/15/24 13:45 Vomiting & Diarrhea codeine Allergy Rash/Hives Verified 02/15/24 13:45 oxycodone [From OxyContin] Allergy Unknown Verified 02/15/24 13:46 prednisone Allergy Unknown Verified 02/15/24 13:46 shellfish derived [Shellfish] Allergy Rash/Hives Verified 02/15/24 13:45 amoxicillin AdvReac Rash/Hives Verified 02/15/24 13:45 hydrocodone bitartrate AdvReac Nausea & Verified 02/15/24 13:45 [From Vicodin] Vomiting & Diarrhea venom-honey bee AdvReac Chest Pain Verified 02/15/24 13:45 [bee venom (honey bee)] Surgical - Exam Vital Signs Temp Pulse Resp BP Pulse Ox 97.5 F L 89 16 136/83 95 02/15/24 12:25 02/15/24 12:25 02/15/24 12:25 02/15/24 12:25 02/15/24 12:25 - General well developed, well nourished, no distress - Respiratory normal respiratory effort - Genitourinary Normal vulva, normal urethral meatus. The urethra is palpably normal. Mild vaginal vault tenderness is noted. A cystic structure is palpable to the right of the urethra anteriorly. It is non-tender and non-fluctuant. There is no urethral discharge. - Psychiatric oriented to time, oriented to person, oriented to place, speech is normal, lloyd ry intact Results - Labs 02/17/24 08:42 02/17/24 08:42 Abnormal Lab Results - Last 24 Hours (Table) 02/17/24 02/17/24 Range/Units 08:42 11:56 Sodium 131 L (137-145) mmol/L BUN 5 L (7-17) mg/dL Glucose 73 L (74-99) mg/dL C-Reactive Protein 1.1 H (<1.0) mg/dL Urine Ketones 1+ H (Negative) Microbiology - Last 24 Hours (Table) 02/16/24 06:28 Blood Culture - Preliminary Blood Diabetes panel 02/17/24 Range/Units 08:42 Sodium 131 L (137-145) mmol/L Potassium 3.8 (3.5-5.1) mmol/L Chloride 100 (98-107) mmol/L Carbon Dioxide 27 (22-30) mmol/L BUN 5 L (7-17) mg/dL Creatinine 0.71 (0.52-1.04) mg/dL Glucose 73 L (74-99) mg/dL Calcium 8.6 (8.4-10.2) mg/dL Calcium panel 02/17/24 Range/Units 08:42 Calcium 8.6 (8.4-10.2) mg/dL Pituitary panel 02/17/24 Range/Units 08:42 Sodium 131 L (137-145) mmol/L Potassium 3.8 (3.5-5.1) mmol/L Chloride 100 (98-107) mmol/L Carbon Dioxide 27 (22-30) mmol/L BUN 5 L (7-17) mg/dL Creatinine 0.71 (0.52-1.04) mg/dL Glucose 73 L (74-99) mg/dL Calcium 8.6 (8.4-10.2) mg/dL Adrenal panel 02/17/24 Range/Units 08:42 Sodium 131 L (137-145) mmol/L Potassium 3.8 (3.5-5.1) mmol/L Chloride 100 (98-107) mmol/L Carbon Dioxide 27 (22-30) mmol/L BUN 5 L (7-17) mg/dL Creatinine 0.71 (0.52-1.04) mg/dL Glucose 73 L (74-99) mg/dL Calcium 8.6 (8.4-10.2) mg/dL - Imaging CT scan - pelvis: report reviewed, image reviewed Assessment and Plan Assessment: The patient initially had leukocytosis, which has resolved. There appears to be some concern that the periurethral cystic lesion may be an abscess. Given the lack of symptoms and the appearance of the lesion on CT scan, I feel this is extremely unlikely. It is unlikely that the lesion is a urethral diverticulum, as those usually overlie the urethra and are tender. (1) Pelvic mass in female Current Visit: Yes Status: Acute Code(s): R19.00 - INTRA-ABD AND PELVIC SWELLING, MASS AND LUMP, UNSP SITE SNOMED Code(s): 16130459 Plan: Given that the structure is cystic and the patient is asymptomatic, I do not feel that any further urologic evaluation is warranted. Consider gynecologic evaluation. Please notify me if I can be of any further assistance. Time with Patient: Greater than 30
--- NOTE | 2024-02-18 08:23 | P.PN ---
Subjective Progress Note Date: 02/18/24 CHIEF COMPLAINT: Vomiting and abdominal pain HISTORY OF PRESENT ILLNESS: Patient sitting at bedside chair. She reports not feeling well. She does have nausea and poor appetite. Patient has had improvement in her abdominal pain. She does feel nauseated. No appetite. No vomiting reported. Afebrile. WBC 8.2 Patient was seen evaluated by urology. They have signed off. Patient seen and examined with Dr. Gill PHYSICAL EXAM: VITAL SIGNS: Reviewed. GENERAL: Well-developed in no acute distress. ABDOMEN: Soft. Nondistended. Nontender. NEUROLOGIC: Alert and oriented. Cranial nerves II through XII grossly intact. ASSESSMENT: 1. Abdominal pain with vomiting 2. Low probability of diverticular abscess 3. 2.5 cm cystic lesion right pelvic floor/right perineum just below the bladder and this seems to result in some leftward deviation of the urethra noted on CT. Evaluated by urology 4. History of diverticulitis PLAN: -Schedule patient for EGD and colonoscopy on Wednesday, February 21, [address] Gill -Start bowel prep on Wednesday -Downgrade diet to full liquids -Continue antibiotics per infectious disease Physician Psychology Technician note has been reviewed by physician. Signing provider agrees with the documented findings, assessment, and plan of care. Objective - Vital Signs Vital signs: Vital Signs Temp 97.7 F 02/18/24 02:00 Pulse 66 02/18/24 02:00 Resp 16 02/18/24 02:00 BP 146/74 02/18/24 02:00 Pulse Ox 94 L 02/18/24 02:00 FiO2 Intake & Output 02/17/24 02/18/24 02/18/24 18:59 06:59 18:59 Intake Total 590 Output Total 1600 Balance -1600 590 Intake: Oral 590 Output: Urine 1600 Other: Voiding Method Toilet # Voids 3 - Labs CBC & Chem 7: 02/17/24 08:42 02/17/24 08:42 Labs: Abnormal Lab Results - Last 24 Hours (Table) 02/17/24 02/17/24 Range/Units 08:42 11:56 Sodium 131 L (137-145) mmol/L BUN 5 L (7-17) mg/dL Glucose 73 L (74-99) mg/dL C-Reactive Protein 1.1 H (<1.0) mg/dL Urine Ketones 1+ H (Negative) Microbiology - Last 24 Hours (Table) 02/16/24 06:28 Blood Culture - Preliminary Blood
[2024-02-18] MEDS: polyethylene glycoL 3350 17 GM POWD.PACK PO SCH (10:01)
[2024-02-18] MEDS: SENNOSIDES-DOCUSATE SODIUM 1 EACH TAB PO SCH (10:01)
--- NOTE | 2024-02-18 11:09 | P.PN ---
Subjective Progress Note Date: 02/18/24 Hospital Course: 83-year-old female with history of diverticulitis, hypothyroidism, dyslipidemia, depression presenting with abdominal pain. Vital signs are within normal limits. WBC 11.6, sodium 126, chloride 96, lipase 134, creatinine 0.63. Abdomen pelvis CT shows 2.7 x 1.8 cm oval density collection near the pelvic floor could be Ray cyst or abscess, diverticulosis without acute diverticulitis. Pelvic ultrasound did not see the fluid collection. General surgery consulted. Patient started on antibiotics. ID also consulted. Subjective: Patient seen and examined at bedside. No acute events overnight. Denies any current abdominal pain. Denies n/v. Gen: In NAD, non-toxic HEENT: normocephalic, atraumatic, hearing acuity is intant, mucous membranes moist CVS: perfusing all extremities well, no pitting edema, Respiratory: symmetric chest expansion, no accessory muscle use, GI: soft, NTTP, ND, : no suprapubic tenderness, no CVA tenderness MSK/Derm: no rashes, cyanosis Neuro: CN II-XII intact, no motor weakness, Psych: cooperative, euthymic mood, judgment and insight is intact Assessment and Plan: Active: Suspected diverticular abscess History of diverticulitis Leukocytosis, resolved -General surgery note reviewed, patient downgraded to full liquid diet, planning on EGD/[place] on Wednesday -Continue Flagyl 500 mg oral 3 times daily, ceftriaxone 2 g IV every 24 hours added -ID has been consulted -Blood culture is no growth to date at 24 hours -Zofran as needed for nausea -Awaiting urology consultation Hypovolemic hyponatremia -Continue normal saline at 75 cc an hour -Repeat BMP again tomorrow Chronic: Hypothyroidism Dyslipidemia Depression DVT ppx: Subcu heparin Code status: Full code Anticipated discharge place: Pending clinical course Anticipated discharge time: Pending clinical course Objective - Vital Signs Vital signs: Vital Signs Temp 97.4 F L 02/18/24 07:51 Pulse 68 02/18/24 07:51 Resp 17 02/18/24 07:51 BP 154/78 02/18/24 07:51 Pulse Ox 98 02/18/24 07:51 FiO2 Intake & Output 02/17/24 02/18/24 02/18/24 18:59 06:59 18:59 Intake Total 590 Output Total 1600 Balance -1600 590 Intake: Oral 590 Output: Urine 1600 Other: Voiding Method Toilet # Voids 3 - Labs CBC & Chem 7: 02/17/24 08:42 02/17/24 08:42 Labs: Abnormal Lab Results - Last 24 Hours (Table) 02/17/24 Range/Units 11:56 Urine Ketones 1+ H (Negative) Microbiology - Last 24 Hours (Table) 02/16/24 06:28 Blood Culture - Preliminary Blood
--- NOTE | 2024-02-18 16:11 | P.PN ---
Subjective Progress Note Date: 02/18/24 Principal diagnosis: Reason for follow-up is leukocytosis abnormal pelvic fluid collection Patient is 83-year-old female with a past medical history significant for hyperlipidemia osteoarthritis history of diverticulitis and C. difficile colitis depression presenting to the hospital for evaluation of nausea and epigastric discomfort did have abnormality on the CT abdominal pelvis with a question of no fluid collection near the pelvic floor. On today's evaluation that is 02/18/2024, the patient continues to be afebrile, the patient is on room air and breathing comfortably, the Pt denies having any chest pain or cough, the patient has been complaining of some nausea but no vomiting denies any worsening abdominal pain and did not have any bowel movement. No new labs were obtained today blood culture has been negative so far Objective - Vital Signs Vital signs: Vital Signs Temp 97.4 F L 02/18/24 07:51 Pulse 68 02/18/24 07:51 Resp 17 02/18/24 07:51 BP 154/78 02/18/24 07:51 Pulse Ox 98 02/18/24 07:51 FiO2 Intake & Output 02/17/24 02/18/24 02/18/24 18:59 06:59 18:59 Intake Total 590 Output Total 1600 Balance -1600 590 Intake: Oral 590 Output: Urine 1600 Other: Voiding Method Toilet # Voids 3 - Exam GENERAL DESCRIPTION: An elderly female lying in bed in no distress RESPIRATORY SYSTEM: Unlabored breathing , decreased breath sounds at bases HEART: S1 S2 regular rate and rhythm , ABDOMEN: Soft , no tenderness EXTREMITIES: No edema feet - Labs CBC & Chem 7: 02/17/24 08:42 02/17/24 08:42 Labs: Microbiology - Last 24 Hours (Table) 02/16/24 06:28 Blood Culture - Preliminary Blood Assessment and Plan (1) Leukocytosis Current Visit: Yes Status: Acute Code(s): D72.829 - ELEVATED WHITE BLOOD CELL COUNT, UNSPECIFIED SNOMED Code(s): 620502598 (2) Allergy to multiple antibiotics Current Visit: Yes Status: Acute Code(s): Z88.1 - ALLERGY STATUS TO OTHER AN TIBIOTIC AGENTS SNOMED Code(s): 479444723 (3) Abnormal computed tomography of abdomen and pelvis Current Visit: Yes Status: Acute Code(s): R93.5 - ABN FINDINGS ON DX IMAGING OF ABD REGIONS, INC RETROPERITON SNOMED Code(s): 31616693033509344 Plan: 1patient presented to hospital predominantly with abdominal symptoms and this patient who did have a feeling of nausea vomiting and did have some diarrhea also some abdominal discomfort with abnormal CT question of abscess versus cyst patient did have a mild elevated white count but no fever underlying infection at the time excluded and will need to cover for enteric gram-negative both aerobes and anaerobes. 2patient with penicillin allergy that will limit the number of antibiotics safe to use. 3patient has been evaluated by surgery low clinical suspicion is for diverticular abscess, they are planning for colonoscopy on Wednesday for now we will continue with Rocephin and Flagyl and monitor clinical course closely Dictation was produced using [employer] dictation software. please excuse any grammatical, word or spelling errors. Chills Time with Patient: Less than 30
[2024-02-18] MEDS: bisacodyL 10 MG SUPP RECTAL PRN (16:21)
--- NOTE | 2024-02-19 11:34 | P.PN ---
Subjective Progress Note Date: 02/19/24 Hospital Course: 83-year-old female with history of diverticulitis, hypothyroidism, dyslipidemia, depression presenting with abdominal pain. Vital signs are within normal limits. WBC 11.6, sodium 126, chloride 96, lipase 134, creatinine 0.63. Abdomen pelvis CT shows 2.7 x 1.8 cm oval density collection near the pelvic floor could be Ray cyst or abscess, diverticulosis without acute diverticulitis. Pelvic ultrasound did not see the fluid collection. General surgery consulted. Patient started on antibiotics. ID also consulted. Subjective: Patient seen and examined at bedside. No acute events overnight. Pending EGD/[place] on wednesday. Gen: In NAD, non-toxic HEENT: normocephalic, atraumatic, hearing acuity is intant, mucous membranes moist CVS: perfusing all extremities well, no pitting edema, Respiratory: symmetric chest expansion, no accessory muscle use, GI: soft, NTTP, ND, : no suprapubic tenderness, no CVA tenderness MSK/Derm: no rashes, cyanosis Neuro: CN II-XII intact, no motor weakness, Psych: cooperative, euthymic mood, judgment and insight is intact Assessment and Plan: Active: Suspected diverticular abscess History of diverticulitis Leukocytosis, resolved -General surgery note reviewed, patient downgraded to full liquid diet, planning on EGD/[place] on Wednesday -Continue Flagyl 500 mg oral 3 times daily, ceftriaxone 2 g IV every 24 hours added -ID has been consulted -Blood culture is no growth to date at 24 hours -Zofran as needed for nausea -Urology saw pt and no surgical intervention from their point of view Hypovolemic hyponatremia -Continue normal saline at 75 cc an hour -Repeat BMP again tomorrow Chronic: Hypothyroidism Dyslipidemia Depression DVT ppx: Subcu heparin Code status: Full code Anticipated discharge place: Pending clinical course Anticipated discharge time: Pending clinical course Objective - Vital Signs Vital signs: Vital Signs Temp 98.1 F 02/19/24 07:48 Pulse 67 02/19/24 07:48 Resp 16 02/19/24 07:48 BP 163/88 02/19/24 07:48 Pulse Ox 97 02/19/24 07:48 FiO2 Intake & Output 02/18/24 02/19/24 02/19/24 18:59 06:59 18:59 Other: Voiding Method Toilet Toilet # Voids 2 - Labs CBC & Chem 7: 02/17/24 08:42 02/17/24 08:42 Labs: Microbiology - Last 24 Hours (Table) 02/16/24 06:28 Blood Culture - Preliminary Blood
[2024-02-19] MEDS ORDERED: FAMOTIDINE 20 MG/2 ML VIAL IV STA (16:50)
[2024-02-19] MEDS ORDERED: diphenhydrAMINE 50 MG/ML 1 ML VIAL IVP STA (16:50)
[2024-02-19] MEDS: methylPREDNISolone SOD SUCCI 125 MG/2 ML VIAL IV STA (17:58)
[2024-02-20 09:21] LABS: Basophils # (A) 0.04 X 10*3/uL (0.00-0.10); Basophils % (A) 0.5 %; Eosinophils # (A) 0.07 X 10*3/uL (0.04-0.35); Eosinophils % (A) 0.9 %; HCT 33.2 % (37.2-46.3); Lymphocytes # (A) 1.56 X 10*3/uL (0.90-5.00); Lymphocytes % (A) 20.1 %; MCH 29.4 pg (27.0-32.0); MCHC 33.1 g/dL (32.0-37.0); MCV 88.8 FL (80.0-97.0); Mean Platelet Volume 10.5 FL (9.5-12.2); Monocytes # (A) 0.56 X 10*3/uL (0.20-1.00); Monocytes % (A) 7.2 %; NRBC Per 100 WBC 0 X 10*3/uL (0.00-0.01); Neutrophils # (A) 5.51 X 10*3/uL (1.80-7.70); Platelet Count 276 X 10*3/uL (140-440); RBC 3.74 X 10*6/uL (4.10-5.20); RDW 14.8 % (11.5-14.5); WBC 7.76 X 10*3/uL (4.50-10.00)
[2024-02-20 09:27] LABS: BUN/Creat Ratio <5.00 Ratio (12.00-20.00); Blood Urea Nitrogen <3.5 mg/dL (9.0-27.0); Chloride 101 mmol/L (96-109); Glucose 69 mg/dL (70-110); Magnesium 1.7 mg/dL (1.5-2.4); Potassium 3.4 mmol/L (3.5-5.5); Sodium 139 mmol/L (135-145)
[2024-02-20 09:28] LABS: Calcium 8.3 mg/dL (8.7-10.3); Carbon Dioxide 23.2 mmol/L (21.6-31.8)
[2024-02-20] MEDS: PEG 3350 (236 GM/BTL) + LYTES 4,000 ML BOTTLE PO ONE (10:24)
--- NOTE | 2024-02-20 10:56 | P.PN ---
Subjective Progress Note Date: 02/19/24 Principal diagnosis: Reason for follow-up is leukocytosis abnormal pelvic fluid collection Patient is 83-year-old female with a past medical history significant for hyperlipidemia osteoarthritis history of diverticulitis and C. difficile colitis depression presenting to the hospital for evaluation of nausea and epigastric discomfort did have abnormality on the CT abdominal pelvis with a question of no fluid collection near the pelvic floor. On today's evaluation that is 02/19/2024, Patient is afebrile patient is currently on room air and denies having any shortness of breath, the patient denies any chest pain or cough, the patient stated minimal for mildly decreased appetite lower abdominal discomfort and did not have any bowel movement. Patient did not have any lab draw today blood culture has been negative so far Objective - Vital Signs Vital signs: Vital Signs Temp 98.1 F 02/19/24 07:48 Pulse 67 02/19/24 07:48 Resp 16 02/19/24 07:48 BP 163/88 02/19/24 07:48 Pulse Ox 97 02/19/24 07:48 FiO2 Intake & Output 02/18/24 02/19/24 02/19/24 18:59 06:59 18:59 Other: Voiding Method Toilet Toilet # Voids 2 - Exam GENERAL DESCRIPTION: An elderly female lying in bed in no distress RESPIRATORY SYSTEM: Unlabored breathing , decreased breath sounds at bases HEART: S1 S2 regular rate and rhythm , ABDOMEN: Soft , no tenderness EXTREMITIES: No edema feet - Labs CBC & Chem 7: 02/20/24 06:18 02/20/24 06:18 Labs: Microbiology - Last 24 Hours (Table) 02/16/24 06:28 Blood Culture - Preliminary Blood Assessment and Plan (1) Leukocytosis Current Visit: Yes Status: Acute Code(s): D72.829 - ELEVATED WHITE BLOOD CELL COUNT, UNSPECIFIED SNOMED Code(s): 515051805 (2) Allergy to multiple antibiotics Current Visit: Yes Status: Acute Code(s): Z88.1 - ALLERGY STATUS TO OTHER ANTIBIOTIC AGENTS SNOMED Code(s): 597541670 (3) Abnormal computed tomography of abdomen and pelvis Current Visit: Yes Status: Acute Code(s): R93.5 - ABN FINDINGS ON DX IMAGING OF ABD REGIONS, INC RETROPERITON SNOMED Code(s): 82123512526294200 Plan: 1patient presented to hospital predominantly with abdominal symptoms and this patient who did have a feeling of nausea vomiting and did have some diarrhea also some abdominal discomfort with abnormal CT question of abscess versus cyst patient did have a mild elevated white count but no fever underlying infection at the time excluded and will need to cover for enteric gram-negative both aero bes and anaerobes. 2patient with penicillin allergy that will limit the number of antibiotics safe to use. 3patient has been evaluated by surgery low clinical suspicion is for diverticular abscess, may benefit from CT of the pelvis with rectal contrast discussed with admitting team for now continue with Rocephin and Flagyl and monitor clinical course closely Dictation was produced using [employer] dictation software. please excuse any grammatical, word or spelling errors. Time with Patient: Less than 30
[2024-02-20 11:30] LABS: Glucose,Whole Blood 81 mg/dL (70-110)
[2024-02-20] MEDS: POTASSIUM CHLORIDE ER 20 MEQ TAB.ER PO STA (12:06)
--- NOTE | 2024-02-20 12:17 | P.PN ---
Subjective Progress Note Date: 02/20/24 Hospital Course: 83-year-old female with history of diverticulitis, hypothyroidism, dyslipidemia, depression presenting with abdominal pain. Vital signs are within normal limits. WBC 11.6, sodium 126, chloride 96, lipase 134, creatinine 0.63. Abdomen pelvis CT shows 2.7 x 1.8 cm oval density collection near the pelvic floor could be Ray cyst or abscess, diverticulosis without acute diverticulitis. Pelvic ultrasound did not see the fluid collection. General surgery consulted. Patient started on antibiotics. ID also consulted. Subjective: Patient seen and examined at bedside. No acute events overnight. Pending EGD/[place] on wednesday. Gen: In NAD, non-toxic HEENT: normocephalic, atraumatic, hearing acuity is intant, mucous membranes moist CVS: perfusing all extremities well, no pitting edema, Respiratory: symmetric chest expansion, no accessory muscle use, GI: soft, NTTP, ND, : no suprapubic tenderness, no CVA tenderness MSK/Derm: no rashes, cyanosis Neuro: CN II-XII intact, no motor weakness, Psych: cooperative, euthymic mood, judgment and insight is intact Assessment and Plan: Active: Suspected diverticular abscess History of diverticulitis Leukocytosis, resolved -General surgery note reviewed, patient downgraded to full liquid diet, planning on EGD/[place] on Wednesday -Continue Flagyl 500 mg oral 3 times daily, ceftriaxone 2 g IV every 24 hours added -ID has been consulted, discussed with them today, plan is to do CT pelvis with rectal contrast -Blood culture is no growth to date at 24 hours -Zofran as needed for nausea -Urology saw pt and no surgical intervention from their point of view Hypovolemic hyponatremia -Continue normal saline at 75 cc an hour -Repeat BMP again tomorrow Chronic: Hypothyroidism Dyslipidemia Depression DVT ppx: Subcu heparin Code status: Full code Anticipated discharge place: Pending clinical course Anticipated discharge time: Pending clinical course Objective - Vital Signs Vital signs: Vital Signs Temp 98.7 F 02/20/24 07:54 Pulse 71 02/20/24 07:54 Resp 16 02/20/24 07:54 BP 153/79 02/20/24 07:54 Pulse Ox 93 L 02/20/24 07:54 FiO2 Intake & Output 0602/20/24 02/20/24 18:59 06:59 18:59 Intake Total 900 Balance 900 Intake: Intake, IV Titration 900 Amount Sodium Chloride 0.9% 1, 900 000 ml @ 75 mls/hr IV . [id number] [facility] Rx#:[id number] Other: Voiding Method Toilet Toilet Toilet # Voids 3 3 - Labs CBC & Chem 7: 02/20/24 06:18 02/20/24 06:18 Labs: Abnormal Lab Results - Last 24 Hours (Table) 02/20/24 02/20/24 Range/Units 06:18 06:18 RBC 3.74 L (4.10-5.20) X 10*6/uL Hgb 11.0 L (12.0-15.0) g/dL Hct 33.2 L (37.2-46.3) % RDW 14.8 H (11.5-14.5) % Potassium 3.4 L (3.5-5.5) mmol/L Anion Gap 14.80 H (4.00-12.00) mmol/L BUN <3.5 L (9.0-27.0) mg/dL BUN/Creatinine Ratio <5.00 L (12.00-20.00) Ratio Glucose 69 L (70-110) mg/dL Calcium 8.3 L (8.7-10.3) mg/dL Microbiology - Last 24 Hours (Table) 02/16/24 06:28 Blood Culture - Preliminary Blood
--- NOTE | 2024-02-20 13:04 | P.PN ---
Subjective Progress Note Date: 02/20/24 patient [place] stable. She still has some mild left lower quadrant pain. On exam vital signs are stable. Abdomen soft. It. Patient for EGD colonoscopy in the a.m. Objective - Vital Signs Vital signs: Vital Signs Temp 98.7 F 02/20/24 07:54 Pulse 71 02/20/24 07:54 Resp 16 02/20/24 07:54 BP 153/79 02/20/24 07:54 Pulse Ox 93 L 02/20/24 07:54 FiO2 Intake & Output 02/19/24 02/20/24 02/20/24 18:59 06:59 18:59 Intake Total 900 Balance 900 Intake: Intake, IV Titration 900 Amount Sodium Chloride 0.9% 1, 900 000 ml @ 75 mls/hr IV . [id number] [facility] Rx#:[id number] Other: Voiding Method Toilet Toilet Toilet # Voids 3 3 - Labs CBC & Chem 7: 02/20/24 06:18 02/20/24 06:18 Labs: Abnormal Lab Results - Last 24 Hours (Table) 02/20/24 02/20/24 Range/Units 06:18 06:18 RBC 3.74 L (4.10-5.20) X 10*6/uL Hgb 11.0 L (12.0-15.0) g/dL Hct 33.2 L (37.2-46.3) % RDW 14.8 H (11.5-14.5) % Potassium 3.4 L (3.5-5.5) mmol/L Anion Gap 14.80 H (4.00-12.00) mmol/L BUN <3.5 L (9.0-27.0) mg/dL BUN/Creatinine Ratio <5.00 L (12.00-20.00) Ratio Glucose 69 L (70-110) mg/dL Calcium 8.3 L (8.7-10.3) mg/dL Microbiology - Last 24 Hours (Table) 02/16/24 06:28 Blood Culture - Preliminary Blood
[2024-02-20] MEDS ORDERED: ZINC OXIDE PASTE (Z-GUARD) 1 APPLIC TOPICAL PRN (13:50)
[2024-02-20] MEDS: methylPREDNISolone SOD SUCCI 125 MG/2 ML VIAL IV STA (14:14)
[2024-02-20] MEDS: diphenhydrAMINE 50 MG/ML 1 ML VIAL IVP STA (19:43)
[2024-02-20] MEDS: FAMOTIDINE 20 MG/2 ML VIAL IV STA (19:44)
--- NOTE | 2024-02-20 22:20 | CT ---
EXAMINATION TYPE: CT pelvis wo con DATE OF EXAM: 02/20/2024 COMPARISON: 02/16/2024 HISTORY: Pelvic pain and pressure, rectal contrast only CT DLP: 623 mGycm Automated exposure control for dose reduction was used. Contrast: None Technique: Axial images 5 mm thick sections. Reconstructed images in the coronal plane. FINDINGS: Rectal contrast is utilized. Contrast refluxes through the sigmoid colon. Scattered diverticuli are i dentified. Some mild wall thickening may be within the distal sigmoid colon. Contrast continues throu gh the ascending colon. Descending colon and distal terminal ileum contain contrast. Transverse colon is out of the [id number]. Small bowel loops within the abdomen otherwise without contrast appear unremarkable. No extravasation of contrast is identified. Below the urinary bladder there is a 1.9 cm hypodense area is currently measures 2.3 x 1.9 cm. Previo us measurement 2.2 x 2.5 cm. No contrast is within this collection. Urinary bladder is unremarkable. The appendix is not clearly identified. Uterus and ovaries are not i dentified. IMPRESSION: 1. PERSISTENT ABSCESS-LIKE COLLECTION INFERIOR RIGHT OF THE URINARY BLADDER, SMALLER THAN COMPARISON. 2. DIVERTICULOSIS WITHOUT ACUTE DIVERTICULITIS. MILD WALL THICKENING HOWEVER MAY BE PRESENT IS INCOMP LETELY DISTENDED AREA.
[2024-02-21 05:54] LABS: African American GFR (CKD) >90 (>60 ml/min/1.73 sqM); Anion Gap 10 mmol/L; Blood Urea Nitrogen 5 mg/dL (7-17); Carbon Dioxide 22 mmol/L (22-30); Chloride 104 mmol/L (98-107); Glucose 102 mg/dL (74-99); Non-African American GFR(CKD) 89 (>60 ml/min/1.73 sqM); Potassium 4.1 mmol/L (3.5-5.1); Sodium 136 mmol/L (137-145)
[2024-02-21 06:02] LABS: HCT 39.4 % (34.0-46.0); HGB 12.9 gm/dL (11.4-16.0); MCH 29.3 pg (25.0-35.0); MCHC 32.8 g/dL (31.0-37.0); MCV 89.2 fL (80.0-100.0); Platelet Count 303 k/uL (150-450); RBC 4.42 m/uL (3.80-5.40); RDW 14.8 % (11.5-15.5); WBC 7.9 k/uL (3.8-10.6)
--- NOTE | 2024-02-21 13:14 | P.PN ---
Subjective Progress Note Date: 02/21/24 Hospital Course: 83-year-old female with history of diverticulitis, hypothyroidism, dyslipidemia, depression presenting with abdominal pain. Vital signs are within normal limits. WBC 11.6, sodium 126, chloride 96, lipase 134, creatinine 0.63. Abdomen pelvis CT shows 2.7 x 1.8 cm oval density collection near the pelvic floor could be Ray cyst or abscess, diverticulosis without acute diverticulitis. Pelvic ultrasound did not see the fluid collection. General surgery consulted. Patient started on antibiotics. ID also consulted. Subjective: Patient seen and examined at bedside. No acute events overnight. Pending EGD/[place] today. Gen: In NAD, non-toxic HEENT: normocephalic, atraumatic, hearing acuity is intant, mucous membranes moist CVS: perfusing all extremities well, no pitting edema, Respiratory: symmetric chest expansion, no accessory muscle use, GI: soft, NTTP, ND, : no suprapubic tenderness, no CVA tenderness MSK/Derm: no rashes, cyanosis Neuro: CN II-XII intact, no motor weakness, Psych: cooperative, euthymic mood, judgment and insight is intact Assessment and Plan: Active: Suspected diverticular abscess History of diverticulitis Leukocytosis, resolved -General surgery note reviewed, patient downgraded to full liquid diet, planning on EGD/[place] on Wednesday -Continue Flagyl 500 mg oral 3 times daily, ceftriaxone 2 g IV every 24 hours added -ID has been consulted, discussed with them, CT pelvis with rectal contrast ordered per our discussion, which showed ongoing abscess like fluid collection and possible diverticulitis -Blood culture is no growth to date at 24 hours -Zofran as needed for nausea -Urology saw pt and no surgical intervention from their point of view Hypovolemic hyponatremia -Continue normal saline at 75 cc an hour -Repeat BMP again tomorrow Chronic: Hypothyroidism Dyslipidemia Depression DVT ppx: Subcu heparin Code status: Full code Anticipated discharge place: Pending clinical course Anticipated discharge time: Pending clinical course Objective - Vital Signs Vital signs: Vital Signs Temp 97.5 F L 02/21/24 07:39 Pulse 74 02/21/24 07:39 Resp 17 02/21/24 07:39 BP 161/79 02/21/24 07:39 Pulse Ox 95 02/21/24 07:39 FiO2 Intake & Output 06/02/24 06/03/24 06/03/24 18:59 06:59 18:59 Other: Voiding Method Toilet Toilet Toilet # Voids 3 - Labs CBC & Chem 7: 02/21/24 04:54 02/21/24 04:54 Labs: Abnormal Lab Results - Last 24 Hours (Table) 02/21/24 Range/Units 04:54 Sodium 136 L (137-145) mmol/L BUN 5 L (7-17) mg/dL Glucose 102 H (74-99) mg/dL Microbiology - Last 24 Hours (Table) 02/16/24 06:28 Blood Culture - Final Blood
--- NOTE | 2024-02-21 14:09 | P.OP ---
Date of Procedure: 02/21/24 Preoperative Diagnosis: abdominal pain Diverticulitis Postoperative Diagnosis: antral gastritis Severe diverticulosis of sigmoid: Procedure(s) Performed: EGD Colonoscopy Anesthesia: MAC Surgeon: Mata Gill Pathology: other (antrum) Condition: stable Disposition: PACU Description of Procedure: the patient's placed on the endoscopy table in the lateral position. She received IV sedation. The gastro-/oropharynx passed in the esophagus and stomach. Scope then placed through the pylorus. The first and second portion of the duodenum appeared normal. Scope was then brought back and the antrum this. Mildly inflamed. A biopsies was performed. The scope was then retroflexed and remainder of the stomach appeared normal. The GE junction was at 47 is. The distal esophagus appeared normal. The proximal esophagus appeared normal. Scope withdrawn for patient. Next digital rectal exam was performed. This revealed no abnormalities. Flexible colonoscope was then placed patient anus and throughout the colon. Scope could not be passed beyond the sigmoid colon secondary to severe diverti culosis and tortuosity the bowel. This point scope withdrawn. There is extensive diverticular changes and sigmoid colon. Scope summer back the rectum and this appeared normal. The scope withdrawn for patient.
[2024-02-21] MEDS: LACTATED RINGERS 1,000 ML IV SCH (17:00)
[2024-02-21 19:10] VITALS: RESP 16
[2024-02-22 09:22] LABS: Basophils % (A) 1 %; Eosinophils # (A) 0.1 k/uL (0-0.7); Eosinophils % (A) 1 %; HCT 34.2 % (34.0-46.0); Lymphocytes # (A) 1.2 k/uL (1.0-4.8); Lymphocytes % (A) 21 %; MCH 28.9 pg (25.0-35.0); MCHC 32.1 g/dL (31.0-37.0); Mean Platelet Volume 7.7; Monocytes # (A) 0.4 k/uL (0-1.0); Monocytes % (A) 7 %; Neutrophils % (A) 70 %; Platelet Count 274 k/uL (150-450); RBC 3.79 m/uL (3.80-5.40); WBC 5.7 k/uL (3.8-10.6)
[2024-02-22 09:26] LABS: African American GFR (CKD) >90 (>60 ml/min/1.73 sqM); Anion Gap 3 mmol/L; Blood Urea Nitrogen 5 mg/dL (7-17); Calcium 8.3 mg/dL (8.4-10.2); Carbon Dioxide 28 mmol/L (22-30); Chloride 105 mmol/L (98-107); Glucose 70 mg/dL (74-99); Magnesium 1.6 mg/dL (1.6-2.3); Non-African American GFR(CKD) 87 (>60 ml/min/1.73 sqM); Potassium 3.1 mmol/L (3.5-5.1); Sodium 136 mmol/L (137-145)
[2024-02-22] MEDS ORDERED: Potassium Replacement Protocol 1 EACH MISC MISCELLANE PRN (12:27)
[2024-02-22] MEDS ORDERED: Magnesium Replacement Protocol 1 EACH MISC MISCELLANE PRN (12:28)
[2024-02-22] MEDS: POTASSIUM CHLORIDE ER 20 MEQ TAB.ER PO SCH ×2 (13:02→20:08)
[2024-02-22] MEDS: MAGNESIUM SULFATE-D5W PMX 1 GM in DEXTROSE/WATER 1 100ML.BAG IVPB SCH ×2 (13:03→16:08)
--- NOTE | 2024-02-22 14:43 | P.PN ---
Subjective Progress Note Date: 02/22/24 patient states she feels slightly better today. She still has some complaints of left lower quadrant pain. Her colonoscopy formed yesterday shows a significant diverticular disease. Her CAT scan also showed thickening of the sigmoid colon related to diverticulitis. On exam vital signs appear stable. Abdomen soft. Probable chronic diverticulitis. Patient will hopefully be discharged home soon. We will plan for outpatient management of her diverticulitis. Objective - Vital Signs Vital signs: Vital Signs Temp 97.8 F 02/22/24 13:43 Pulse 66 02/22/24 13:43 Resp 16 02/22/24 13:43 BP 158/76 02/22/24 13:43 Pulse Ox 93 L 02/22/24 13:43 FiO2 Intake & Output 02/21/24 02/22/24 02/22/24 18:59 06:59 18:59 Intake Total 250 Balance 250 Intake: Oral 250 Other: Voiding Method Toilet Toilet # Voids 3 - Labs CBC & Chem 7: 02/22/24 08:08 02/22/24 08:08 Labs: Abnormal Lab Results - Last 24 Hours (Table) 02/22/24 02/22/24 Range/Units 08:08 08:08 RBC 3.79 L (3.80-5.40) m/uL Hgb 11.0 L (11.4-16.0) gm/dL Sodium 136 L (137-145) mmol/L Potassium 3.1 L (3.5-5.1) mmol/L BUN 5 L (7-17) mg/dL Glucose 70 L (74-99) mg/dL Calcium 8.3 L (8.4-10.2) mg/dL Microbiology - Last 24 Hours (Table) 02/16/24 06:28 Blood Culture - Final Blood
[2024-02-22] MEDS ORDERED: DEXTROSE 50% SYRINGE 50 ML IVP PRN ×2 (15:12)
--- NOTE | 2024-02-22 15:24 | P.PN ---
Subjective Progress Note Date: 02/22/24 Hospital course: Patient is a very pleasant 83-year-old female with a past medical history of CAD with stent, hyperlipidemia, hypothyroidism, diverticulosis. She presented to the emergency department on 02/07/2024 with a chief complaint of abdominal pain. On arrival to our facility patient underwent evaluation in the emergency department. Vital signs upon arrival show blood pressure 136/83, heart rate 89, respiratory rate 16, temp 97.5 F, and SpO2 of 95% on room air. Labs were completed and reviewed. CBC showing leukocytosis with WBC count of 11.6. Coagulation profile normal findings. BMP revealing hyponatremia with sodium of 126 and chloride of 96. Liver profile was unremarkable. Amylase and lipase normal findings. Urinalysis negative for infection positive for 1+ ketones. CT abdomen and pelvis without contrast was completed showing a 2.7 x 1.8 cm low- density collection near the pelvic floor concerning for cyst or abscess. Ultrasound then completed and inconclusive unable to identify fluid collection reported on CT. Patient was admitted under our services with consultation to general surgery. On 02/16/[address] abdomen and pelvis was completed again showing similar appearance to the 2.5 cm fluid-filled lesion right pelvic floor/right perineum which is reported to result in some leftward deviation of the urethra and small hiatal hernia with sigmoid diverticulosis with mild wall thickening. Urology was consulted. 02/20/[address] pelvis with rectal contrast showing persistent abscess like collection in inferior right of the urinary bladder and diverticulosis without acute diverticulitis. On 02/21/2024 General surgery took patient for an EGD and colonoscopy which revealed antral gastritis and severe diverticulosis of sigmoid colon. Infectious disease was also consulted for management of antibiotics. Blood culture showed no growth. Physical exam: Patient seen and fully evaluated at bedside this morning. She was resting comfo rtably with family at bedside. Patient reports currently abdominal pain has subsided and denies having any complaints at this time. Patient reports she tolerated breakfast this morning without any episodes of nausea. Vital signs reviewed and stable. General: Nontoxic, no distress and appears stated age. Derm: Skin warm and dry, normal coloration for ethnicity. Head: Atraumatic, normocephalic and symmetric. Eyes: EOMs intact, no lid lag, and anicteric sclera Mouth: no lip lesions, mucus membranes moist Cardiovascular: regular rate and rhythm with normal S1S2, systolic murmur, positive posterior tibial pulses bilaterally, and cap refill < 2 seconds. Lungs: Respirations even, regular, and unlabored on room air. Lungs CTA bilaterally, no rhonchi, no rales, no wheezing, and no accessory muscle usage. Abdominal: soft, nontender to palpation, no guarding, no appreciable organomegaly. Ext: ROM intact. No gross muscle atrophy, no edema, no contractures Neuro: Speech clear, face symmetrical and CN II-XII grossly intact with no noted focal neuro deficits Psych: Alert and oriented to person, place, time, and situation. Appropriate and pleasant affect. Assessment and Plan of Care: Suspected Diverticular abscess History of diverticulitis Leukocytosis, resolved -General surgery following, on 02/21/2024 took patient for EGD and colonoscopy revealing severe diverticulosis of sigmoid colon and antral gastritis. Reviewed documentation in chart. -Patient tolerating regular diet. -Continue Flagyl 500 mg oral 3 times daily and ceftriaxone 2 g IV every 24 hours -Infectious disease following, reviewed documentation in chart. -Blood cultures showing no growth to date. -Zofran as needed for nausea -Urology evaluated, recommending no intervention from their standpoint. Recurrent episodes of hypoglycemia, likely secondary to decreased oral intake -Recurrent episodes of hypoglycemia likely secondary to decreased oral intake, patient reports tolerating regular diet at this time. Will place patient on hggrk-[id number] glucose checks every 6 hours and monitor for any further episodes of hypoglycemia. -Order placed for glycemic protocol with [id number] glucose checks every 6 hours. Hypothyroidism -Continue daily medication regimen with levothyroxine 88 mcg daily. Dyslipidemia -Continue daily medication regimen with atorvastatin 20 mg nightly. Depression -Daily medication regimen with Lexapro 20 mg daily. Hypovolemic hyponatremia. -Resolved after IV fluid hydration. Data and imaging reviewed: Vital signs reviewed. Blood pressure 169/81, heart rate 69, respiratory rate 16, temp 97.8 F, and SpO2 of 96% on room air. Morning labs reviewed. CBC showing stable normocytic anemia with hemoglobin of 11.0. BMP showing potassium 3.1. Blood glucose was low at 70. Magnesium 1.6. CODE STATUS: Full code DVT prophylaxis: Heparin Anticipated discharge date: Pending clinical course Anticipated discharge place: Pending clinical course Patient was seen independently by Nurse Pracitioner. This document was prepared using [employer] dictation software. 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 Lopez Mcknight NP rendered care for this patient independently, reviewed the findi ngs and plan as documented in the note above. I did not physically speak with or examine the patient on this date. Objective - Vital Signs Vital signs: Vital Signs Temp 97.8 F 02/22/24 07:24 Pulse 69 02/22/24 07:24 Resp 16 02/22/24 07:24 BP 169/81 02/22/24 07:24 Pulse Ox 96 02/22/24 07:24 FiO2 Intake & Output 02/21/24 02/22/24 02/22/24 18:59 06:59 18:59 Intake Total 250 Balance 250 Intake: Oral 250 Other: Voiding Method Toilet Toilet # Voids 3 - Labs CBC & Chem 7: 02/22/24 08:08 02/22/24 08:08 Labs: Microbiology - Last 24 Hours (Table) 02/16/24 06:28 Blood Culture - Final Blood
--- NOTE | 2024-02-22 15:25 | P.PN ---
Subjective Progress Note Date: 02/20/24 Principal diagnosis: Reason for follow-up is leukocytosis abnormal pelvic fluid collection Patient is 83-year-old female with a past medical history significant for hyperlipidemia osteoarthritis history of diverticulitis and C. difficile colitis depression presenting to the hospital for evaluation of nausea and epigastric discomfort did have abnormality on the CT abdominal pelvis with a question of no fluid collection near the pelvic floor. On today's evaluation that is 02/20/2024, patient has been afebrile, patient is breathing comfortably and is currently on room air, patient denies having any significant cough no chest pain shortness of breath, patient complaining of decreased appetite and nausea but no vomiting some lower abdominal discomfort did not have any bowel movement Patient white count is creatinine 0.7 Objective - Vital Signs Vital signs: Vital Signs Temp 97.8 F 02/20/24 14:14 Pulse 72 02/20/24 14:14 Resp 17 02/20/24 14:14 BP 169/78 02/20/24 14:14 Pulse Ox 94 L 02/20/24 14:14 FiO2 Intake & Output 02/19/24 02/20/24 02/20/24 18:59 06:59 18:59 Intake Total 900 Balance 900 Intake: Intake, IV Titration 900 Amount Sodium Chloride 0.9% 1, 900 000 ml @ 75 mls/hr IV . [id number] [facility] Rx#:[id number] Other: Voiding Method Toilet Toilet Toilet # Voids 3 3 - Exam GENERAL DESCRIPTION: An elderly female lying in bed in no distress RESPIRATORY SYSTEM: Unlabored breathing , decreased breath sounds at bases HEART: S1 S2 regular rate and rhythm , ABDOMEN: Soft , no tenderness EXTREMITIES: No edema feet - Labs CBC & Chem 7: 02/22/24 08:08 02/22/24 08:08 Labs: Abnormal Lab Results - Last 24 Hours (Table) 02/20/24 02/20/24 Range/Units 06:18 06:18 RBC 3.74 L (4.10-5.20) X 10*6/uL Hgb 11.0 L (12.0-15.0) g/dL Hct 33.2 L (37.2-46.3) % RDW 14.8 H (11.5-14.5) % Potassium 3.4 L (3.5-5.5) mmol/L Anion Gap 14.80 H (4.00-12.00) mmol/L BUN <3.5 L (9.0-27.0) mg/dL BUN/Creatinine Ratio <5.00 L (12.00-20.00) Ratio Glucose 69 L (70-110) mg/dL Calcium 8.3 L (8.7-10.3) mg/dL Microbiology - Last 24 Hours (Table) 02/16/24 06:28 Blood Culture - Preliminary Blood Assessment and Plan (1) Leukocytosis Current Visit: Yes Status: Acute Code(s): D72.829 - ELEVATED WHITE BLOOD OANH L COUNT, UNSPECIFIED SNOMED Code(s): 597902265 (2) Allergy to multiple antibiotics Current Visit: Yes Status: Acute Code(s): Z88.1 - ALLERGY STATUS TO OTHER ANTIBIOTIC AGENTS SNOMED Code(s): 630751670 (3) Abnormal computed tomography of abdomen and pelvis Current Visit: Yes Status: Acute Code(s): R93.5 - ABN FINDINGS ON DX IMAGING OF ABD REGIONS, INC RETROPERITON SNOMED Code(s): 99420850306113760 Plan: 1patient presented to hospital predominantly with abdominal symptoms and this patient who did have a feeling of nausea vomiting and did have some diarrhea also some abdominal discomfort with abnormal CT question of abscess versus cyst patient did have a mild elevated white count but no fever underlying infection at the time excluded and will need to cover for enteric gram-negative both aerobes and anaerobes. 2patient with penicillin allergy that will limit the number of antibiotics safe to use. 3patient is currently undergoing prep for CT of the pelvis with rectal contrast to define underlying pathology, patient to continue with Rocephin and Flagyl and monitor clinical course closely Dictation was produced using [employer] dictation software. please excuse any grammatical, word or spelling errors. Time with Patient: Less than 30
--- NOTE | 2024-02-22 15:26 | P.PN ---
Subjective Progress Note Date: 02/21/24 Principal diagnosis: Reason for follow-up is leukocytosis abnormal pelvic fluid collection Patient is 83-year-old female with a past medical history significant for hyperlipidemia osteoarthritis history of diverticulitis and C. difficile colitis depression presenting to the hospital for evaluation of nausea and epigastric discomfort did have abnormality on the CT abdominal pelvis with a question of no fluid collection near the pelvic floor. On today's evaluation that is 02/21/2024,the patient denies any fever or any chills, patient is breathing comfortably on room air, the patient denies chest pain shortness of breath and no significant cough, patient did have multiple bowel movements after taking her bowel prep denies abdominal pain no nausea vomiting Patient white count is 7.9, creatinine 0.54, pelvis CT with persistent abscess- like collection inferior to right of the urinary bladder smaller in comparison Objective - Vital Signs Vital signs: Vital Signs Temp 97.5 F L 02/21/24 07:39 Pulse 74 02/21/24 07:39 Resp 17 02/21/24 07:39 BP 161/79 02/21/24 07:39 Pulse Ox 95 02/21/24 07:39 FiO2 Intake & Output 02/20/24 02/21/24 02/21/24 18:59 06:59 18:59 Other: Voiding Method Toilet Toilet Toilet # Voids 3 - Exam GENERAL DESCRIPTION: An elderly female lying in bed in no distress RESPIRATORY SYSTEM: Unlabored breathing , decreased breath sounds at bases HEART: S1 S2 regular rate and rhythm , ABDOMEN: Soft , no tenderness EXTREMITIES: No edema feet - Labs CBC & Chem 7: 02/22/24 08:08 02/22/24 08:08 Labs: Abnormal Lab Results - Last 24 Hours (Table) 02/21/24 Range/Units 04:54 Sodium 136 L (137-145) mmol/L BUN 5 L (7-17) mg/dL Glucose 102 H (74-99) mg/dL Assessment and Plan (1) Leukocytosis Current Visit: Yes Status: Acute Code(s): D72.829 - ELEVATED WHITE BLOOD CELL COUNT, UNSPECIFIED SNOMED Code(s): 941920318 (2) Allergy to multiple antibiotics Current Visit: Yes Status: Acute Code(s): Z88.1 - ALLERGY STATUS TO OTHER ANTIBIOTIC AGENTS SNOMED Code(s): 159009755 (3) Abnormal computed tomography of abdomen and pelvis Current Visit: Yes Status: Acute Code(s): R93.5 - ABN FINDINGS ON DX IMAGING OF ABD REGIONS, INC RETROPERITON SNOMED Code(s): 40265264652114611 Plan: 1patient presented to hospital predominantly with abdominal symptoms and this patient who did have a feeling of nausea vomiting and did have some diarrhea also some abdominal discomfort with abnormal CT question of abscess versus cyst patient did have a mild elevated white count but no fever underlying infection at the time excluded and will need to cover for enteric gram-negative both aerobes and anaerobes. 2patient with penicillin allergy that will limit the number of antibiotics safe to use. 3patient did have a CT of the pelvis concerning for possible abscess IR consult has been requested for drainage continue with Rocephin and Flagyl Dictation was produced using [employer] dictation software. please excuse any grammatical, word or spelling errors. Time with Patient: Less than 30
--- NOTE | 2024-02-22 15:27 | P.PN ---
Subjective Progress Note Date: 02/22/24 Principal diagnosis: Reason for follow-up is leukocytosis abnormal pelvic fluid collection Patient is 83-year-old female with a past medical history significant for hyperlipidemia osteoarthritis history of diverticulitis and C. difficile colitis depression presenting to the hospital for evaluation of nausea and epigastric discomfort did have abnormality on the CT abdominal pelvis with a question of no fluid collection near the pelvic floor.Patient is status post co lonoscopy and EGD completed by general surgery on 02/21/2024 evidence of antral gastritis severe sigmoid diverticulosis. On today's evaluation that is 02/22/2024,the patient remains to be afebrile, patient is on room air not requiring supplemental oxygen and denies any shortness of breath no chest pain or cough.Patient denies having any nausea or vomiting, no abdominal pain and no diarrhea. Patient white count is 5.7, creatinine 0.57 blood culture has been negative Objective - Vital Signs Vital signs: Vital Signs Temp 97.8 F 02/22/24 07:24 Pulse 69 02/22/24 07:24 Resp 16 02/22/24 07:24 BP 169/81 02/22/24 07:24 Pulse Ox 96 02/22/24 07:24 FiO2 Intake & Output 02/21/24 02/22/24 02/22/24 18:59 06:59 18:59 Intake Total 250 Balance 250 Intake: Oral 250 Other: Voiding Method Toilet Toilet # Voids 3 - Exam GENERAL DESCRIPTION: An elderly female lying in bed in no distress RESPIRATORY SYSTEM: Unlabored breathing , decreased breath sounds at bases HEART: S1 S2 regular rate and rhythm , ABDOMEN: Soft , no tenderness EXTREMITIES: No edema feet - Labs CBC & Chem 7: 02/22/24 08:08 02/22/24 08:08 Labs: Abnormal Lab Results - Last 24 Hours (Table) 02/22/24 02/22/24 Range/Units 08:08 08:08 RBC 3.79 L (3.80-5.40) m/uL Hgb 11.0 L (11.4-16.0) gm/dL Sodium 136 L (137-145) mmol/L Potassium 3.1 L (3.5-5.1) mmol/L BUN 5 L (7-17) mg/dL Glucose 70 L (74-99) mg/dL Calcium 8.3 L (8.4-10.2) mg/dL Microbiology - Last 24 Hours (Table) 02/16/24 06:28 Blood Culture - Final Blood Assessment and Plan (1) Leukocytosis Current Visit: Yes Status: Acute Code(s): D72.829 - ELEVATED WHITE BLOOD CELL COUNT, UNSPECIFIED SNOMED Code(s): 348679542 (2) Allergy to multiple antibiotics Current Visit: Yes Status: Acute Code(s): Z88.1 - ALLERGY STATUS TO OTHER ANTIBIOTIC AGENTS SNOMED Code(s): 118270718 (3) Abnormal computed tomography of abdomen and pelvis Current Visit: Yes Status: Acute Code(s): R93.5 - ABN FINDINGS ON DX IMAGING OF ABD REGIONS, INC RETROPERITON SNOMED Code(s): 94244796408858552 Plan: 1patient presented to hospital predominantly with abdominal symptoms and this patient who did have a feeling of nausea vomiting and did have some diarrhea also some abdominal discomfort with abnormal CT question of abscess versus cyst patient did have a mild elevated white count but no fever underlying infection at the time excluded and will need to cover for enteric gram-negative both aerobes and anaerobes. 2patient with penicillin allergy that will limit the number of antibiotics safe to use. 3patient did have a CT of the pelvis concerning for possible abscess IR was consulted for possible IR drainage get a message from interventional radiology radiologist think this is Ray cyst and is not recommending any aspiration for now continue with Rocephin and Flagyl and monitor clinical course closely. Family the bedside questions were answered Dictation was produced using [employer] dictation software. please excuse any grammatical, word or spelling errors. Time with Patient: Less than 30
[2024-02-22] MEDS: POTASSIUM CHLORIDE ER 20 MEQ TAB.ER PO STA (16:08)
[2024-02-22 22:41] LABS: Glucose,Whole Blood 76 mg/dL (70-110)
[2024-02-23] MEDS: POTASSIUM CHLORIDE ER 20 MEQ TAB.ER PO STA (01:37)
[2024-02-23 03:11] LABS: Glucose,Whole Blood 90 mg/dL (70-110)
[2024-02-23 10:27] LABS: ALT 31 U/L (8-44); AST 68 U/L (13-35); Albumin 3.9 g/dL (3.8-4.9); Albumin/Globulin Ratio 2.05 Ratio (1.60-3.17); Alkaline Phosphatase 82 U/L (41-126); BUN/Creat Ratio <5.83 Ratio (12.00-20.00); Blood Urea Nitrogen <3.5 mg/dL (9.0-27.0); Carbon Dioxide 26.8 mmol/L (21.6-31.8); Chloride 100 mmol/L (96-109); Globulin 1.9 g/dL (1.6-3.3); Glucose 78 mg/dL (70-110); Magnesium 2.1 mg/dL (1.5-2.4); Sodium 139 mmol/L (135-145); Total Bilirubin 0.4 mg/dL (0.3-1.2); Total Protein 5.8 g/dL (6.2-8.2)
[2024-02-23 11:56] LABS: Glucose,Whole Blood 120 mg/dL (70-110)
[2024-02-23 12:03] VITALS: BP 150/77; PULSE 71; TEMP 97.9
--- NOTE | 2024-02-23 12:42 | P.PN ---
Subjective Progress Note Date: 02/23/24 CHIEF COMPLAINT: Vomiting and abdominal pain HISTORY OF PRESENT ILLNESS: Patient is status post EGD and colonoscopy results reported gastritis and severe diverticulosis. Patient denies abdominal pain. Denies any nausea or vomiting. She is having diarrhea. She is tolerating diet. Afebrile. Patient seen and examined with Dr. Gill PHYSICAL EXAM: VITAL SIGNS: Reviewed. GENERAL: Well-developed in no acute distress. ABDOMEN: Soft. Nondistended. Nontender. NEUROLOGIC: Alert and oriented. Cranial nerves II through XII grossly intact. ASSESSMENT: 1. Probable chronic diverticulitis. Status post EGD and colonoscopy revealing gastritis and severe diverticulosis PLAN: -Patient can be discharged from surgical standpoint when medically cleared -Patient to follow-up with Dr. Gill in 1 week. Plan for outpatient management of her chronic diverticulitis. Physician [employer]oving Machine Operator note has been reviewed by physician. Signing provider agrees with the documented findings, assessment, and plan of care. Objective - Vital Signs Vital signs: Vital Signs Temp 97.9 F 02/23/24 11:50 Pulse 71 02/23/24 11:50 Resp 16 02/23/24 11:50 BP 150/77 02/23/24 11:50 Pulse Ox 95 02/23/24 11:50 FiO2 Intake & Output 02/22/24 02/23/24 02/23/24 18:59 06:59 18:59 Intake Total 200 Balance 200 Intake: Intake, IV Titration 200 Amount Magnesium Sulfate-D5w Pmx 200 1 gm In Dextrose/Water 1 100ml.bag @ 100 mls/hr IVPB Q1H [facility] Rx#: [id number] Other: Voiding Method Toilet Toilet Toilet # Voids 3 - Labs CBC & Chem 7: 02/22/24 08:08 02/23/24 07:37 Labs: Abnormal Lab Results - Last 24 Hours (Table) 02/22/24 02/23/24 02/23/24 Range/Units 17:11 07:37 11:54 Potassium 3.2 L (3.5-5.1) mmol/L Anion Gap 12.20 H (4.00-12.00) mmol/L BUN <3.5 L (9.0-27.0) mg/dL BUN/Creatinine Ratio <5.83 L (12.00-20.00) Ratio POC Glucose (mg/dL) 120 H (70-110) mg/dL AST 68 H (13-35) U/L Total Protein 5.8 L (6.2-8.2) g/dL
[2024-02-23 13:06] VITALS: BMI 32.5
--- NOTE | 2024-02-23 13:40 | P.DS ---
Providers Date of admission: 02/16/24 10:55 Expected date of discharge: 02/23/24 Attending physician: Darien Arguelles MD Consults: 02/15/24 18:09 Consult Physician Routine Consulting Provider: Mata Gill Consult Reason/Comments: pelvic fluid collection Do you want consulting provider notified?: Yes 02/16/24 06:15 Consult Physician Routine Consulting Provider: Janel Camargo Consult Reason/Comments: Pelvic floor collection Do you want consulting provider notified?: Yes 02/16/24 14:38 Consult Physician Routine Consulting Provider: Prasanna Baumann Consult Reason/Comments: ct pelvic floor cystic lesion, deviation of urethra Do you want consulting provider notified?: Yes Primary care physician: Elijah Silva MD Hospital Course: Discharge Diagnosis: Suspected Diverticular abscess. Patient underwent IV antibiotics and evaluation by urologist and general surgeon along with infectious disease. EGD and colonoscopy was completed showing antral gastritis and severe diverticulosis of sigmoid colon. Patient had full resolution of abdominal pain/discomfort and tolerating oral intake well without any reports of nausea or vomiting. Patient has been cleared by urology, general surgery, and infectious disease. She is medically stable for discharge at this time she is being discharged home on an extended course of antibiotics for an additional 10 days patient discharged on Ceftin 500 mg twice daily and Flagyl 500 mg 3 times daily. Patient to follow-up outpatient with PCP in 1 to 2 days and with general surgeon in 1 week. History of diverticulitis Leukocytosis, resolved Recurrent episodes of hypoglycemia, likely secondary to decreased oral intake. Resolved and patient tolerating regular diet without any difficulties and no further episodes of hypoglycemia. Hypothyroidism. Continue daily medication regimen with levothyroxine 88 mcg daily. Dyslipidemia. Continue daily medication regimen with atorvastatin 20 mg nightly. Depression Daily medication regimen with Lexapro 20 mg daily. Hypovolemic hyponatremia. Resolved after IV fluid hydration. Patient okay to resume oral Lasix 20 mg daily and discharged with prescription for repeat BMP and magnesium in 3 days with results to be sent to PCP and general surgery for follow-up and management. Hospital course: Patient is a very pleasant 83-year-old female with a past medical history of CAD with stent, hyperlipidemia, hypothyroidism, diverticulosis. She presented to the emergency department on 02/07/2024 with a chief complaint of abdominal pain. On arrival to our facility patient underwent evaluation in the emergency department. Vital signs upon arrival show blood pressure 136/83, heart rate 89, respiratory rate 16, temp 97.5 F, and SpO2 of 95% on room air. Labs were completed and reviewed. CBC showing leukocytosis with WBC count of 11.6. Coagulation profile normal findings. BMP revealing hyponatremia with sodium of 126 and chloride of 96. Liver profile was unremarkable. Amylase and lipase normal findings. Urinalysis negative for infection positive for 1+ ketones. CT abdomen and pelvis without contrast was completed showing a 2.7 x 1.8 cm low- density collection near the pelvic floor concerning for cyst or abscess. Ultrasound then completed and inconclusive unable to identify fluid collection reported on CT. Patient was admitted under our services with consultation to general surgery. On 02/16/[address] abdomen and pelvis was completed again showing similar appearance to the 2.5 cm fluid-filled lesion right pelvic floor/right perineum which is reported to result in some leftward deviation of the urethra and small hiatal hernia with sigmoid diverticulosis with mild wall thickening. Urology was consulted. 02/20/[address] pelvis with rectal contrast showing persistent abscess like collection in inferior right of the urinary bladder and diverticulosis without acute diverticulitis. On 02/21/2024 General surgery took patient for an EGD and colonoscopy which revealed antral gastritis and severe diverticulosis of sigmoid colon. Infectious disease was also consulted for management of antibiotics. Blood culture showed no growth. Patient's condition improving, no longer reporting any abdominal pain or complaints. She is tolerating oral intake and has been cleared by general surgery and infectious disease for discharge. Patient being discharged home on Ceftin 500 mg twice daily and Flagyl 500 mg 3 times daily for an additional antibiotic course of 10 days. Patient is medically stable for discharge and to follow-up outpatient with PCP in 1 to 2 days and with general surgeon in 1 week. Physical exam: Vital signs reviewed and stable. General: Nontoxic, no distress and appears stated age. Derm: Skin warm and dry, normal coloration for ethnicity. Head: Atraumatic, normocephalic and symmetric. Eyes: EOMs intact, no lid lag, and anicteric sclera Mouth: no lip lesions, mucus membranes moist Cardiovascular: regular rate and rhythm with normal S1S2, systolic murmur, positive posterior tibial pulses bilaterally, and cap refill < 2 seconds. Lungs: Respirations even, regular, and unlabored on room air. Lungs CTA bilaterally, no rhonchi, no rales, no wheezing, and no accessory muscle usage. Abdominal: soft, nontender to palpation, no guarding, no appreciable organomegaly. Ext: ROM intact. No gross muscle atrophy, no edema, no contractures Neuro: Speech clear, face symmetrical and CN II-XII grossly intact with no noted focal neuro deficits Psych: Alert and oriented to person, place, time, and situation. Appropriate and pleasant affect. A total of 33 minutes of time were spent preparing this complex discharge summary. Pt was discharged on 02/23/2024 at 1:47 PM. Patient was seen independently by Nurse Practitioner. This document was prepared using [employer] dictation software. Please allow for errors in strategic planning manager while rare they do occur. Lopez Mcknight NP rendered care for this patient independently, reviewed the findings and plan as documented in the note above. I did not physically speak with or examine the patient on this date. Patient Condition at Discharge: Stable Plan - Discharge Summary New Discharge Prescriptions: New metroNIDAZOLE [Flagyl] 500 mg PO TID 10 Days #30 tab cefUROXime axetiL [Ceftin] 500 mg PO BID 10 Days #20 tab polyethylene glycoL 3350 [Miralax] 17 gm PO DAILY 30 Days #30 packet Pantoprazole [Protonix] 40 mg PO DAILY 30 Days #30 tab Continue Escitalopram [Lexapro] 20 mg PO PC-BRKFST Turmeric Curcumin 1500mg W/10mg Bioperine 1 tab PO DAILY Rosuvastatin [Crestor] 10 mg PO HS Potassium Chloride ER [K-Dur 20] 20 meq PO PC-BRKFST Levothyroxine Sodium [Synthroid] 88 mcg PO DAILY Elderberry 50mg 1 tab PO DAILY Calcium 333mg/Magnesium 133mg/Zinc 5mg/Vitamin D3 5mcg 1 tab PO DAILY Cholecalciferol (Vitamin D3) [Vitamin D3 (50 Mcg = 2000 Iu)] 50 mcg PO DAILY Cyanocobalamin [Vitamin B-12] 500 mcg PO DAILY Acetaminophen Tab [Tylenol] 500 - 1,000 mg PO PC-BRKFST Furosemide [Lasix] 20 mg PO PC-BRKFST Vitamin C 100mg 1 tab PO DAILY Discharge Medication List Escitalopram [Lexapro] 20 mg PO PC-BRKFST 04/17/19 [History] Acetaminophen Tab [Tylenol] 500 - 1,000 mg PO -BRKFST 02/15/24 [History] Calcium 333mg/Magnesium 133mg/Zinc 5mg/Vitamin D3 5mcg 1 tab PO DAILY 02/15/24 [History] Cholecalciferol (Vitamin D3) [Vitamin D3 (50 Mcg = 2000 Iu)] 50 mcg PO DAILY 02/15/24 [History] Cyanocobalamin [Vitamin B-12] 500 mcg PO DAILY 02/15/24 [History] Elderberry 50mg 1 tab PO DAILY 02/15/24 [History] Furosemide [Lasix] 20 mg PO -KFST 02/15/24 [History] Levothyroxine Sodium [Synthroid] 88 mcg PO DAILY 02/15/24 [History] Potassium Chloride ER [K-Dur 20] 20 [facility]q [facility] 02/15/24 [History] Rosuvastatin [Crestor] 10 mg PO HS 02/15/24 [History] Turmeric Curcumin 1500mg W/10mg Bioperine 1 tab PO DAILY 02/15/24 [History] Vitamin C 100mg 1 tab PO DAILY 02/15/24 [History] Pantoprazole [Protonix] 40 mg PO DAILY 30 Days #30 tab 02/23/24 [Rx] cefUROXime axetiL [Ceftin] 500 mg PO BID 10 Days #20 tab 02/23/24 [Rx] metroNIDAZOLE [Flagyl] 500 mg PO TID 10 Days #30 tab 02/23/24 [Rx] polyethylene glycoL 3350 [Miralax] 17 gm PO DAILY 30 Days #30 packet 02/23/24 [Rx] Follow up Appointment(s)/Referral(s): Nini Bahena NPC [REFERRING] - 02/25/24 3:30 pm Mata Gill MD [STAFF PHYSICIAN] - 03/02/24 2:30 pm Ambulatory/Diagnostic Orders: Basic Metabolic Panel [LAB.AMB] Time Frame: 3 Days, Location: None Selected Magnesium [LAB.AMB] Location: None Selected Patient Instructions/Handouts: Cefuroxime (By mouth), Metronidazole (By mouth), Pantoprazole (By mouth), Polyethylene Glycol 3350 (By mouth), Diverticulosis (DC), Heart Healthy Diet (DC), Hyponatremia (DC), Hypokalemia (DC), Basic Metabolic Panel (GEN), Leukocytosis (DC), Diverticulitis Diet (DC), Hypomagnesemia (DC), Mediterranean Diet (DC) Activity/Diet/Wound Care/Special Instructions: Activity: As tolerated. Take breaks as needed. Diet: Heart healthy and carb consistent diet. Avoid salts, or foods with hidden salts such as canned or boxed foods and frozen dinners. Extra salt makes your heart work harder and traps the fluid in your body for longer. Special Instructions: Take all of your medications as directed and remember to keep all of your doctor's appointments and follow-up as needed. Thank you for allowing us to participate in your care, it was truly a pleasure having you for our patient!!! Discharge Disposition: HOME SELF-CARE
--- NOTE | 2024-02-24 14:29 | P.PN ---
Subjective Progress Note Date: 02/23/24 Principal diagnosis: Reason for follow-up is leukocytosis abnormal pelvic fluid collection Patient is 83-year-old female with a past medical history significant for hyperlipidemia osteoarthritis history of diverticulitis and C. difficile colitis depression presenting to the hospital for evaluation of nausea and epigastric discomfort did have abnormality on the CT abdominal pelvis with a question of no fluid collection near the pelvic floor.Patient is status post co lonoscopy and EGD completed by general surgery on 02/21/2024 evidence of antral gastritis severe sigmoid diverticulosis. On today's evaluation that is 02/23/2024, the patient continues to be afebrile, the patient is on room air and breathing comfortably, the Pt denies having any chest pain or cough, the patient abdominal pain has improved no nausea vomiting having some loose stools. Patient did have a creatinine 0.6 no CBC was done today white count was 5.7 as of yesterday blood culture negative Objective - Vital Signs Vital signs: Vital Signs Temp 97.9 F 02/23/24 11:50 Pulse 71 02/23/24 11:50 Resp 16 02/23/24 11:50 BP 150/77 02/23/24 11:50 Pulse Ox 95 02/23/24 11:50 FiO2 Intake & Output 02/22/24 02/23/24 02/23/24 18:59 06:59 18:59 Intake Total 200 Balance 200 Weight 86.183 kg Intake: Intake, IV Titration 200 Amount Magnesium Sulfate-D5w Pmx 200 1 gm In Dextrose/Water 1 100ml.bag @ 100 mls/hr IVPB Q1H [facility] Rx#: [id number] Other: Voiding Method Toilet Toilet Toilet # Voids 3 - Exam GENERAL DESCRIPTION: An elderly female lying in bed in no distress RESPIRATORY SYSTEM: Unlabored breathing , decreased breath sounds at bases HEART: S1 S2 regular rate and rhythm , ABDOMEN: Soft , no tenderness EXTREMITIES: No edema feet - Labs CBC & Chem 7: 02/22/24 08:08 02/23/24 07:37 Labs: Abnormal Lab Results - Last 24 Hours (Table) 02/22/24 02/23/24 02/23/24 Range/Units 17:11 07:37 11:54 Potassium 3.2 L (3.5-5.1) mmol/L Anion Gap 12.20 H (4.00-12.00) mmol/L BUN <3.5 L (9.0-27.0) mg/dL BUN/Creatinine Ratio <5.83 L (12.00-20.00) Ratio POC Glucose (mg/dL) 120 H (70-110) mg/dL AST 68 H (13-35) U/L Total Protein 5.8 L (6.2-8.2) g/dL Assessment and Plan (1) Leukocytosis Status: Acute Code(s): D72.829 - ELEVATED WHITE BLOOD CELL COUNT, UNSPECIFIED SNOMED Code(s): 265209661 (2) Allergy to multiple antibiotics Status: Acute Code(s): Z88.1 - ALLERGY STATUS TO OTHER ANTIBIOTIC AGENTS SNOMED Code(s): 162919153 (3) Abnormal computed tomography of abdomen and pelvis Status: Acute Code(s): R93.5 - ABN FINDINGS ON DX IMAGING OF ABD REGIONS, INC RETROPERITON SNOMED Code(s): 26703326326319029 Plan: 1patient presented to hospital with abdominal discomfort with abnormal CT question of abscess versus cyst patient did have a mild elevated white count but no fever underlying infection at the time excluded and will need to cover for enteric gram-negative both aerobes and anaerobes. 2patient with penicillin allergy that will limit the number of antibiotics safe to use. 3patient did have a CT of the pelvis concerning for possible abscess IR was consulted for possible IR drainage get a message from interventional radiology radiologist think this is Ray cyst and is not recommending any aspiration, patient has been cleared for discharge by surgical and medical team we will recommend a 10-day course of oral Ceftin and Flagyl on discharge and close outpatient follow-up Dictation was produced using [employer] dictation software. please excuse any grammatical, word or spelling errors. Time with Patient: Less than 30
== END 2024-02-23 16:50 | disposition home or self-care (01) | DRG 760 ==
LOC: EC 12:19 → 1SOBS 18:11 → OBSVTOIN 02-16 10:55 → 5NMEDONC 02-17 15:22
PROVIDERS: ADMIT Internal Medicine; ATTEND Internal Medicine
PROC: 0DB78ZX Excision of Stomach, Pylorus, Via Natural or Artificial Opening Endoscopic, Diagnostic (ICD-10-PCS; principal; 2024-02-21 14:40)
PROC: 0DJD8ZZ Inspection of Lower Intestinal Tract, Via Natural or Artificial Opening Endoscopic (ICD-10-PCS; 2024-02-21 14:40)
DX: Q52.4 Other congenital malformations of vagina (principal); E87.1 Hypo-osmolality and hyponatremia; E86.1 Hypovolemia; I25.10 Atherosclerotic heart disease of native coronary artery without angina pectoris; E78.5 Hyperlipidemia, unspecified; F32.A Depression, unspecified; E03.9 Hypothyroidism, unspecified; N39.41 Urge incontinence; M19.90 Unspecified osteoarthritis, unspecified site; K57.30 Diverticulosis of large intestine without perforation or abscess without bleeding; K29.60 Other gastritis without bleeding; Z79.890 Hormone replacement therapy; E16.2 Hypoglycemia, unspecified; K44.9 Diaphragmatic hernia without obstruction or gangrene; Z79.899 Other long term (current) drug therapy; Z95.5 Presence of coronary angioplasty implant and graft; Z96.652 Presence of left artificial knee joint; Z91.041 Radiographic dye allergy status; Z88.5 Allergy status to narcotic agent; Z88.6 Allergy status to analgesic agent; Z88.8 Allergy status to other drugs, medicaments and biological substances; Z90.710 Acquired absence of both cervix and uterus; Z88.0 Allergy status to penicillin; Z91.013 Allergy to seafood; Z91.030 Bee allergy status
CPT/HCPCS: 36415; 43239; 45380; 72192; 74176; 76857; 80048; 80053; 81003; 82150; 83690; 83735; 84132; 85025; 85027; 85610; 85730; 86140; 87040; 88305; 96361; 96372; 96374; 96375; 99285

== ENCOUNTER → 2024-02-26 | Outpatient (CLI) | payer MEDICARE, OTHER ==
[2024-02-27 06:27] LABS: Magnesium 1.9 mg/dL (1.5-2.4)
[2024-02-27 07:18] LABS: ALT 29 U/L (8-44); AST 51 U/L (13-35); Albumin 3.9 g/dL (3.8-4.9); Albumin/Globulin Ratio 2.05 Ratio (1.60-3.17); Alkaline Phosphatase 73 U/L (41-126); BUN/Creat Ratio 10.57 Ratio (12.00-20.00); Blood Urea Nitrogen 7.4 mg/dL (9.0-27.0); Carbon Dioxide 29.8 mmol/L (21.6-31.8); Chloride 98 mmol/L (96-109); Globulin 1.9 g/dL (1.6-3.3); Glucose 86 mg/dL (70-110); Potassium 3.8 mmol/L (3.5-5.5); Sodium 139 mmol/L (135-145); Total Bilirubin 0.4 mg/dL (0.3-1.2); Total Protein 5.8 g/dL (6.2-8.2)
== END | disposition home or self-care (01) ==
LOC: LABWHC1 09:08
PROVIDERS: ATTEND Family Medicine
DX: E03.9 Hypothyroidism, unspecified (principal); R60.0 Localized edema
CPT/HCPCS: 36415; 80053; 83735; 84443

== ENCOUNTER → 2024-03-10 | Outpatient (CLI) | payer MEDICARE, OTHER | END | disposition home or self-care (01) | LOC: LABPAT 10:36 | PROVIDERS: ATTEND Surgery | DX: Z01.818 Encounter for other preprocedural examination (principal); K57.32 Diverticulitis of large intestine without perforation or abscess without bleeding | CPT/HCPCS: 36415; 93005 ==

== ENCOUNTER → 2024-03-17 | Outpatient (CLI) | payer MEDICARE, OTHER ==
[2024-03-17 17:25] LABS: Basophils # (A) 0.04 X 10*3/uL (0.00-0.10); Basophils % (A) 0.6 %; Eosinophils # (A) 0.11 X 10*3/uL (0.04-0.35); Eosinophils % (A) 1.5 %; HCT 39.9 % (37.2-46.3); Lymphocytes # (A) 1.88 X 10*3/uL (0.90-5.00); Lymphocytes % (A) 26.3 %; MCH 28.8 pg (27.0-32.0); MCHC 32.6 g/dL (32.0-37.0); MCV 88.5 FL (80.0-97.0); Mean Platelet Volume 9.9 FL (9.5-12.2); Monocytes # (A) 0.57 X 10*3/uL (0.20-1.00); NRBC Per 100 WBC 0 X 10*3/uL (0.00-0.01); Neutrophils # (A) 4.54 X 10*3/uL (1.80-7.70); Neutrophils % (A) 63.5 %; Platelet Count 369 X 10*3/uL (140-440); RBC 4.51 X 10*6/uL (4.10-5.20); RDW 15.8 % (11.5-14.5); WBC 7.15 X 10*3/uL (4.50-10.00)
[2024-03-17 17:37] LABS: Anion Gap 9.8 mmol/L (4.00-12.00); Carbon Dioxide 27.2 mmol/L (21.6-31.8); Potassium 4.8 mmol/L (3.5-5.5)
== END | disposition home or self-care (01) ==
LOC: LABWHC1 09:30
PROVIDERS: ATTEND Surgery
DX: Z01.812 Encounter for preprocedural laboratory examination (principal); K57.32 Diverticulitis of large intestine without perforation or abscess without bleeding
CPT/HCPCS: 36415; 80051; 85025; 86850; 86900; 86901

== ENCOUNTER 2024-04-12 07:38 | Day surgery (SDC) | payer MEDICARE, OTHER ==
[~2024-04-12 07:38] MED LIST changes: +HEPARIN SODIUM,PORCINE 5,000 UNIT/ML 1 ML VIAL SQ PRN; -LACTATED RINGERS 1,000 ML IV SCH; +LIDOCAINE 1% (10MG/ML) FOR IV START INTRADERMA PRN; -PROPOFOL 10 MG/ML 20 ML VIAL IV ONE
[2024-04-12] MEDS: IV FLUID CONTINUATION 1,000 ML IV ONE ×6 (08:00→15:35)
[2024-04-12] MEDS: ACETAMINOPHEN TAB 500 MG TAB PO PRN (08:11)
[2024-04-12] MEDS: LACTATED RINGERS 1,000 ML IV SCH ×3 (08:20→18:24)
[2024-04-12] MEDS: MIDAZOLAM 2 MG/2 ML VIAL IV PRN (08:29)
[2024-04-12] MEDS: ONDANSETRON 4 MG/2 ML VIAL IVP ONE (08:44)
[2024-04-12] MEDS ORDERED: NALOXONE 0.4 MG/ML 1 ML VIAL IV PRN ×2 (08:46→10:40)
--- NOTE | 2024-04-12 08:46 | P.ANPRN ---
Procedure Note - Anesthesia - Epidural/Spinal Epidural Time Out Performed: Yes Date of Procedure: 04/12/24 Procedure Start Time: 08:28 Procedure Stop Time: 08:32 Location of Patient: PreOp Indication: Acute Post-Operative Pain, Analgesia, Requested by Surgeon Sedation Type: Sedate with meaningful contact maintained Preparation: Sterile Prep Position: Sitting Catheter: Indwelling Needle Guage: 18 Narrative: Test dose with 3ml of 1.5% lidocaine with epi===Negative S/S. Blood Aspirated: No Pain Paresthesia on Injection Noted: No Events: Uneventful and Well Tolerated
[2024-04-12] MEDS ORDERED: PHENYLEPHRINE-0.9% NACL SYG 1,000 MCG/10 ML SYRINGE ONE (08:55)
[2024-04-12] MEDS ORDERED: HYDROmorphone (PF) 1 MG/ML ONE (08:55)
[2024-04-12] MEDS ORDERED: SUCCINYLCHOLINE CHLORIDE 200 MG/10 ML VIAL IV ONE (08:55)
[2024-04-12] MEDS ORDERED: fentaNYL (PF) 50 MCG/ML 2 ML AMP ONE (08:55)
[2024-04-12] MEDS ORDERED: GLYCOPYRROLATE 0.2 MG/ML 2 ML VIAL ONE (08:55)
[2024-04-12] MEDS ORDERED: ROCURONIUM 10 MG/ML (5 ML VIAL) IV ONE (08:55)
[2024-04-12] MEDS ORDERED: LIDOCAINE 1% INJ 10MG/ML (20 ML MDV) ONE (08:55)
[2024-04-12] MEDS ORDERED: PROPOFOL 10 MG/ML 20 ML VIAL IV ONE (08:55)
[2024-04-12] MEDS ORDERED: NEOSTIGMINE 1 MG/ML 10 ML VIAL ONE (08:55)
[2024-04-12] MEDS: metroNIDAZOLE-NS PMX 500 MG in SALINE 1 100ML.BAG IVPB PRN (09:13)
[2024-04-12] MEDS: LACTATED RINGERS 1,000 ML IV ONE ×3 (10:12→14:06)
--- NOTE | 2024-04-12 10:39 | P.OP ---
Date of Procedure: 04/12/24 Preoperative Diagnosis: Diverticulitis Postoperative Diagnosis: Diverticulitis Procedure(s) Performed: Low anterior resection Takedown of splenic flexure Anesthesia: KAMILLA Surgeon: Mata Gill Estimated Blood Loss (ml): 200 Pathology: other (Sigmoid colon) Condition: stable Disposition: PACU Description of Procedure: DESCRIPTION OF PROCEDURE: The patient was placed on the op table in the supine position. She received general anesthesia. She was then placed in dorsal lithotomy position. Her abdomen was prepped and draped you sterile fashion. The abdomen through a low midline incision. This was then extended cephalad towards the head. The Bookwalter was placed wound. There were some adhesions to the anterior abdominal wall these were lysed with sharp dissection. The left colon and sigmoid colon were visualized. There appeared to be evidence of diverticulitis in the distal sigmoid colon. This point the white line of Toldt was divided and the left colon was mobilized. And then the sigmoid colon was mobilized by dividing the lateral abdominal wall attachments. In order to get enough length for the anastomosis the splenic flexure was taken down. The splenic flexure was taken down with sharp and blunt dissection electrocautery. There was a small amount of bleeding from the distal tip of the spleen this was coagulated. At this point a enterotomy was made in the proximal sigmoid colon. The anvil for the 29 mm EEA stapler was placed in the colon. The colon was then divided with the MAILE stapler. The spike of the able was then driven through the colonic staple line. Using the LigaSure device the mesentery of the left and sigmoid colon was divided. The rectum was then divided with the contour stapler. The assistant plant controller then placed the anal sizers in the anus. And then the 29 mm EEA stapler was placed into the anus. The spike was driven through the anterior rectal wall. The anvil was connected to the stapler. The staple then closed and fired and 2 intact tissue rings were withdrawn from the stapler once it was removed. Using a bowel clamp the bowel was occluded and then the rectum was insufflated with air. There is no evidence of extravasation of air along the staple line. The abdomen is irrigated. There is no bleeding seen. The fascia was closed with looped #1 PDS suture. The skin was closed with herminia. Patient Toller procedure well. She was sent to recovery room in stable condition.
[2024-04-12] MEDS: ROPIVACAINE 250 MG, HYDROMORPHONE (PF) 5 MG in SODIUM CHLORIDE 0.9% 200 ML EPIDURAL PRN (10:42)
[2024-04-12] MEDS: HYDROmorphone 0.5 MG/0.5 ML SYRINGE IVP PRN (11:39)
[2024-04-12 13:25] LABS: HCT 30.1 % (34.0-46.0); HGB 9.7 gm/dL (11.4-16.0); Hypochromasia Slight; MCH 29.5 pg (25.0-35.0); MCHC 32.4 g/dL (31.0-37.0); MCV 91.2 fL (80.0-100.0); Mean Platelet Volume 6.9; Platelet Count 340 k/uL (150-450); RDW 14.8 % (11.5-15.5); WBC 7.4 k/uL (3.8-10.6)
[2024-04-12 13:35] LABS: African American GFR (CKD) >90 (>60 ml/min/1.73 sqM); Anion Gap 3 mmol/L; Blood Urea Nitrogen 5 mg/dL (7-17); Calcium 8.1 mg/dL (8.4-10.2); Carbon Dioxide 27 mmol/L (22-30); Chloride 101 mmol/L (98-107); Glucose 130 mg/dL (74-99); Non-African American GFR(CKD) 83 (>60 ml/min/1.73 sqM); Potassium 3.7 mmol/L (3.5-5.1); Sodium 131 mmol/L (137-145)
--- NOTE | 2024-04-12 14:54 | P.CNPUL ---
History of Present Illness Consult date: 04/12/24 Requesting physician: Mata Gill Reason for consult: other Chief complaint: Hypotension. History of present illness: Pulmonary/critical care consult dated April 12, 2024. 83-year-old female with a history of diverticulitis. The patient underwent a low anterior resection today, with Dr. Gill. Today is postoperative day #0. I was asked to see the patient because the patient had some transient hypotension. She is currently seen in the recovery area, and she is currently on 4 L of oxygen. She is receiving a lactated Ringer's bolus, her third liter and, the LR will be running at 125 cc an hour. Her current blood pressure is about 90 systolic. In addition, she will get 1 unit of packed red blood cells. The patient is still very sedated, recently having had surgery. She has a history of hyperlipidemia, osteoarthritis, and hypothyroidism. She has had a number of different surgeries including breast surgery, heart catheterization, hysterectomy, etc. Current laboratory data includes a white count 7.4, hemoglobin 9.7, hematocrit 30.1, and a platelet count of 340,000. Sodium 131, potassium 3.7, chlorides 101, CO2 27, BUN 5, creatinine 0.66. Glucose is 130. Calcium is 8.1. Review of Systems REVIEW OF SYSTEMS: CONSTITUTIONAL: [Negative.] NEUROLOGIC: [ Negative.] HEENT: [ Negative.] CARDIAC: [Negative.] PULMONARY: [Negative.] GI: Diverticulitis. : [Negative.] RHEUMATOLOGIC: [ Negative.] IMMUNOLOGIC: [ Negative.] ENDOCRINE: [Negative. ] DERMATOLOGIC: [Negative.] Past Medical History Past Medical History: Hyperlipidemia, Hypertension, Memory Impairment, Osteoarthritis (OA), Thyroid Disorder Additional Past Medical History / Comment(s): hx c-diff 10/2013, hypothyroidism, fractured Lt. shoulder 2021, bilat. knee pain, diarrhea/diverticulitis - hospitalized @ [facility] 02/16/24 - 02/23/24,states "no problems with high blood pressure,"pt does not think she was ever tx for high b/p History of Any Multi-Drug Resistant Organisms: None Reported Date of last positivie culture/infection: 10/2013 MDRO Source:: stool Past Surgical History: Breast Surgery, Heart Catheterization, Hysterectomy, Joint Replacement, Tonsillectomy Additional Past Surgical History / Comment(s): Lt. TKA, Rt. breast lumpectomy- benign Past Anesthesia/Blood Transfusion Reactions: No Reported Reaction Additional Past Anesthesia/Blood Transfusion Reaction / Comment(s): Pt has never had a blood transfusion. Smoking Status: Never smoker - Past Family History Daughter(s) Family Medical History: Cancer Additional Family Medical History / Comment(s): breast CA-recovered Father Family Medical History: Cancer Additional Family Medical History / Comment(s): testicular Mother Additional Family Medical History / Comment(s): Mother after wisdom tooth pulled and ended up with blood poisoning. Medications and Allergies Home Medications Medication Instructions Recorded Confirmed Type Escitalopram [Lexapro] 20 mg PO QAM 04/17/19 04/12/24 History Acetaminophen Tab [Tylenol] 500 mg PO Q6H PRN 02/15/24 04/12/24 History Furosemide [Lasix] 20 mg PO QAM 02/15/24 04/12/24 History Levothyroxine Sodium [Synthroid] 88 mcg PO QAM 02/15/24 04/12/24 History Potassium Chloride ER [K-Dur 20] 20 meq PO PC-BRKFST 02/15/24 04/12/24 History Lidocaine [Aspercreme Patch] 1 patch TRANSDERM DIRECTED PRN 03/21/24 04/12/24 History Allergies Allergy/AdvReac Type Severity Reaction Status Date / Time iodine Allergy Severe Abdominal Verified 04/12/24 07:53 Pain/hives clindamycin Allergy Nausea & Verified 04/12/24 07:53 Vomiting & Diarrhea codeine Allergy Rash/Hives Verified 04/12/24 07:53 oxycodone [From OxyContin] Allergy Unknown Verified 04/12/24 07:53 prednisone Allergy Unknown Verified 04/12/24 07:53 shellfish derived [Shellfish] Allergy Rash/Hives Verified 04/12/24 07:53 amoxicillin AdvReac Rash/Hives Verified 04/12/24 07:53 hydrocodone bitartrate AdvReac Nausea & Verified 04/12/24 07:53 [From Vicodin] Vomiting & Diarrhea venom-honey bee AdvReac Chest Pain Verified 04/12/24 07:53 [bee venom (honey bee)] Physical Exam Osteopathic Statement: *. No significant issues noted on an osteopathic structural exam other than those noted in the History and Physical/Consult. Vitals: Vital Signs Temp Pulse Pulse Resp BP BP BP 04/12/24 14:30 76 16 116/58 04/12/24 14:15 74 16 108/56 04/12/24 14:00 72 16 108/58 04/12/24 13:45 71 16 94/50 04/12/24 13:30 71 16 86/52 04/12/24 13:15 73 16 89/53 04/12/24 13:00 70 16 94/53 04/12/24 12:45 67 16 83/49 04/12/24 12:15 68 16 83/49 04/12/24 12:00 66 16 85/49 04/12/24 11:45 64 14 91/54 04/12/24 11:35 67 16 114/54 04/12/24 11:25 67 16 98/52 04/12/24 11:15 64 16 97/56 04/12/24 11:08 69 16 104/58 04/12/24 10:53 74 16 108/59 04/12/24 10:38 97 F L 84 14 96/55 04/12/24 08:48 74 16 177/77 04/12/24 08:27 73 18 167/86 04/12/24 08:01 98.7 F 82 18 134/65 Pulse Ox 04/12/24 14:30 100 04/12/24 14:15 98 04/12/24 14:00 98 04/12/24 13:45 99 04/12/24 13:30 98 04/12/24 13:15 98 04/12/24 13:00 100 04/12/24 12:45 100 04/12/24 12:15 99 04/12/24 12:00 96 04/12/24 11:45 96 04/12/24 11:35 97 04/12/24 11:25 96 04/12/24 11:15 97 04/12/24 11:08 96 04/12/24 10:53 94 L 04/12/24 10:38 95 04/12/24 08:48 96 04/12/24 08:27 99 04/12/24 08:01 95 Intake and Output 04/11/24 04/12/24 04/12/24 22:59 06:59 14:59 Intake Total 2270 Output Total 280 Balance 1989 Intake: IV 2270 Output: Urine 80 Estimated Blood Loss 200 Other: Weight 82.4 kg No acute distress, sedated, currently on 3 L. Saturations are 100%. HEENT examination is grossly unremarkable. Mucous membranes are moist. No oral lesions. Neck supple. Full range of motion. No adenopathy thyromegaly or neck vein distention. Cardiovascular examination reveals regular rhythm rate. S1-S2 normal. No S3 or S4. No discernible murmur noted. Heart sounds are distant. Heart rate 76 bpm. Blood pressure is 94/50. Lungs reveal clear breath sounds. Breath sounds are equal bilaterally. No adventitious lung sounds including wheezes rhonchi or crackles. Abdomen soft without bowel sounds. No masses. Extremities are intact. No cyanosis clubbing or edema. Skin is without rash or lesion. Neurologic examination is brief but nonfocal. Results - Laboratory Findings CBC and BMP: 04/12/24 13:13 04/12/24 13:13 Abnormal lab findings: Abnormal Labs 04/12/24 04/12/24 04/12/24 08:04 13:13 13:13 RBC 3.30 L Hgb 9.7 L Hct 30.1 L Sodium 131 L BUN 5 L Glucose 130 H Calcium 8.1 L Crossmatch See Detail Assessment and Plan Assessment: Postoperative day #0, status post low anterior resection, for diverticulitis. Postoperative hypotension, currently being fluid resuscitated. History of hypothyroidism. History of hyperlipidemia. History of osteoarthritis. Plan: Plan dated April 12, 2024. The patient is seen in the phase 1 postanesthesia care unit(PACU). Currently, the patient is on 4 L of oxygen. The patient is getting lactated Ringer's bolus, which is her third liter of fluid. Her blood pressure is about 94-95 systolic. She also has a unit of blood being ordered. Her rate on the lactated Ringer's will be 125 cc an hour, after the bolus. Labs, x-rays, medications are reviewed. Overall prognosis remains guarded. We will continue to follow the patient, make recommendations along the way. I did speak to the surgeon would appreciate the ICU, for this patient, for closer monitoring and management. Time with Patient: Greater than 30
[2024-04-12 16:39] LABS: Glucose,Whole Blood 123 mg/dL (70-110)
[2024-04-12 19:52] LABS: Glucose,Whole Blood 118 mg/dL (70-110)
[2024-04-12] MEDS: HEPARIN SODIUM,PORCINE 5,000 UNIT/ML 1 ML VIAL SQ SCH (21:32)
[2024-04-12] MEDS: SODIUM CHLORIDE 0.9% 1,000 ML IV ONE (22:02)
--- NOTE | 2024-04-13 06:48 | P.PN ---
Progress Note - Text S/P AP resection. POD #1. Epidural is at 2 cc/h. Pain is 5-6 out of 10. BP has improved with fluids and currently 126/58. No anesthesia related complications. Dressing is clean and intact. Plan: will increase epidural rate from 2 to 4 cc/h.
[2024-04-13 06:55] LABS: Basophils % (A) 0 %; Eosinophils % (A) 0 %; HCT 37.5 % (34.0-46.0); HGB 12.2 gm/dL (11.4-16.0); Hypochromasia Slight; Lymphocytes % (A) 9 %; MCH 29.9 pg (25.0-35.0); MCHC 32.6 g/dL (31.0-37.0); MCV 91.9 fL (80.0-100.0); Mean Platelet Volume 7.4; Monocytes # (A) 0.9 k/uL (0-1.0); Monocytes % (A) 9 %; Neutrophils # (A) 8.7 k/uL (1.3-7.7); Neutrophils % (A) 81 %; Platelet Count 369 k/uL (150-450); RBC 4.08 m/uL (3.80-5.40); WBC 10.7 k/uL (3.8-10.6)
[2024-04-13 07:05] LABS: African American GFR (CKD) 62 (>60 ml/min/1.73 sqM); Anion Gap 5 mmol/L; Blood Urea Nitrogen 11 mg/dL (7-17); Calcium 8.7 mg/dL (8.4-10.2); Carbon Dioxide 25 mmol/L (22-30); Chloride 102 mmol/L (98-107); Glucose 104 mg/dL (74-99); Non-African American GFR(CKD) 53 (>60 ml/min/1.73 sqM); Potassium 4.6 mmol/L (3.5-5.1); Sodium 132 mmol/L (137-145)
[2024-04-13] MEDS: ACETAMINOPHEN TAB 325 MG TAB PO PRN (07:48)
[2024-04-13] MEDS: HYDROmorphone 0.5 MG/0.5 ML SYRINGE IVP PRN (09:13)
[2024-04-13] MEDS: ACETAMINOPHEN IV (For NPO) 1,000 MG in EMPTY BAG 1 BAG IVPB SCH (11:31)
[2024-04-13] MEDS: FAMOTIDINE 20 MG/2 ML VIAL IV SCH (11:31)
--- NOTE | 2024-04-13 11:35 | P.PN ---
Subjective Progress Note Date: 04/13/24 Principal diagnosis: Hypotension. Pulmonary/critical care consult dated April 12, 2024. 83-year-old female with a history of diverticulitis. The patient underwent a low anterior resection today, with Dr. Gill. Today is postoperative day #0. I was asked to see the patient because the patient had some transient hypotension. She is currently seen in the recovery area, and she is currently on 4 L of oxygen. She is receiving a lactated Ringer's bolus, her third liter and, the LR will be running at 125 cc an hour. Her current blood pressure is about 90 systolic. In addition, she will get 1 unit of packed red blood cells. The patient is still very sedated, recently having had surgery. She has a history of hyperlipidemia, osteoarthritis, and hypothyroidism. She has had a number of different surgeries including breast surgery, heart catheterization, hysterectomy, etc. Current laboratory data includes a white count 7.4, hemoglobin 9.7, hematocrit 30.1, and a platelet count of 340,000. Sodium 131, potassium 3.7, chlorides 101, CO2 27, BUN 5, creatinine 0.66. Glucose is 130. Calcium is 8.1. Progress note dated April 13, 2024. This is a 83-year-old female seen yesterday in the postoperative care unit. The patient apparently had a low anterior resection for diverticular disease. Today is postop day #1. After surgery, the patient was hypotensive. The patient received 3 L of fluid, and, she was seen in the postanesthesia care unit. The patient is seen today in room 254, ICU. She is on O2 at 4 L. She is getting lactated Ringer's at 125 cc an hour. Today is postoperative day #1. She did receive 1 unit of packed red blood cells. White count 10.7, hemoglobin 12.2, hematocrit 37.5, platelet count 3 69,000. Sodium 132, potassium 4.6, chlorides 102, CO2 25, anion gap 5, BUN 11, creatinine 1. Calcium is 8.7. Glucose is 104. Objective - Vital Signs Vital signs: Vital Signs Temp 98.0 F 04/13/24 08:00 Pulse 86 04/13/24 10:00 Resp 7 L 04/13/24 10:00 BP 122/60 04/13/24 10:00 Pulse Ox 93 L 04/13/24 10:00 FiO2 Intake & Output 04/12/24 04/13/24 04/13/24 18:59 06:59 18:59 Intake Total 2440.933 1375 375 Output Total 595 130 55 Balance 6002.157 1066 320 Weight 82.4 kg 93 kg Intake: IV 2140 1375 375 Lactated Ringers 1,000 ml 250 1375 375 @ 125 mls/hr IV .Q8H [facility] Rx#:[id number] Intake, IV Titration 5.933 Amount Ropivacaine 250 mg 5.933 Hydromorphone (Pf) 5 mg In Sodium Chloride 0.9% 200 ml @ Per Protocol EPIDURAL .Q0M PRN Rx#: [id number] Blood Product 295 Rc Pheresis As-3 Unit 295 [id number] Output: Urine 395 130 55 Estimated Blood Loss 200 Other: Voiding Method Indwelling Catheter - Exam No acute distress, awake and alert, currently on 4 L. Saturations are 96%. HEENT examination is grossly unremarkable. Mucous membranes are moist. No oral lesions. Neck supple. Full range of motion. No adenopathy thyromegaly or neck vein di stention. Cardiovascular examination reveals regular rhythm rate. S1-S2 normal. No S3 or S4. No discernible murmur noted. Heart sounds are distant. Heart rate 86 bpm. Blood pressure is 122/60. Lungs reveal clear breath sounds. Breath sounds are equal bilaterally. No adventitious lung sounds including wheezes rhonchi or crackles. Abdomen soft without bowel sounds. No masses. Extremities are intact. No cyanosis clubbing or edema. Skin is without rash or lesion. Neurologic examination is brief but nonfocal. - Labs CBC & Chem 7: 04/13/24 05:39 04/13/24 05:39 Labs: Abnormal Lab Results - Last 24 Hours (Table) 04/12/24 04/12/24 04/12/24 Range/Units 08:04 13:13 13:13 WBC (3.8-10.6) k/uL RBC 3.30 L (3.80-5.40) m/uL Hgb 9.7 L (11.4-16.0) gm/dL Hct 30.1 L (34.0-46.0) % Neutrophils # (1.3-7.7) k/uL Sodium 131 L (137-145) mmol/L BUN 5 L (7-17) mg/dL Glucose 130 H (74-99) mg/dL POC Glucose (mg/dL) (70-110) mg/dL Calcium 8.1 L (8.4-10.2) mg/dL Crossmatch See Detail 04/12/24 04/12/24 04/13/24 Range/Units 16:37 19:50 05:39 WBC 10.7 H (3.8-10.6) k/uL RBC (3.80-5.40) m/uL Hgb (11.4-16.0) gm/dL Hct (34.0-46.0) % Neutrophils # 8.7 H (1.3-7.7) k/uL Sodium (137-145) mmol/L BUN (7-17) mg/dL Glucose (74-99) mg/dL POC Glucose (mg/dL) 123 H 118 H (70-110) mg/dL Calcium (8.4-10.2) mg/dL Crossmatch 04/13/24 Range/Units 05:39 WBC (3.8-10.6) k/uL RBC (3.80-5.40) m/uL Hgb (11.4-16.0) gm/dL Hct (34.0-46.0) % Neutrophils # (1.3-7.7) k/uL Sodium 132 L (137-145) mmol/L BUN (7-17) mg/dL Glucose 104 H (74-99) mg/dL POC Glucose (mg/dL) (70-110) mg/dL Calcium (8.4-10.2) mg/dL Crossmatch Assessment and Plan Assessment: Postoperative day #1, status post low anterior resection, for diverticulitis. Postoperative hypotension, currently being fluid resuscitated, resolved. History of hypothyroidism. History of hyperlipidemia. History of osteoarthritis. Plan: Plan dated April 12, 2024. The patient is seen in the phase 1 postanesthesia care unit(PACU). Currently, the patient is on 4 L of oxygen. The patient is getting lactated Ringer's bolus, which is her third liter of fluid. Her blood pressure is about 94-95 systolic. She also has a unit of blood being ordered. Her rate on the lactated Ringer's will be 125 cc an hour, after the bolus. Labs, x-rays, medications are reviewed. Overall prognosis remains guarded. We will continue to follow the patient, make recommendations along the way. I did speak to the surgeon would appreciate the ICU, for this patient, for closer monitoring and management. Plan dated April 13, 2024. The patient is seen in the intensive care unit. The patient's blood pressure is now much more stable, after fluid resuscitation, and 1 unit of packed red blood cells. Labs, x-rays, and medications are reviewed. The patient is much more awake and alert. Today is postoperative day #1. Labs, and x-rays, have been reviewed. Medications have been reviewed. Everything appears to be appropriate. Will continue to follow the patient, make recommendations along the way. The patient is encouraged to deep breathe, cough, clear secretions. The patient is also encouraged to use the incentive spirometer, every hour while awake. Time with Patient: Greater than 30
--- NOTE | 2024-04-13 12:42 | P.PN ---
Subjective Progress Note Date: 04/13/24 CHIEF COMPLAINT: Diverticulitis HISTORY OF PRESENT ILLNESS: Patient postop day# 1 status post lower anterior resection for diverticulitis. Patient had postoperative hypotension she has received a total of 4 L of IV fluid bolus and is in the ICU. Urine output has been decreased. Blood pressure is improving. She does have epidural for pain control they did increase epidural from 2-4. Afebrile. BP 122/60. WBC 10.7 Hgb 12.2 creatinine 1.0 Patient seen and examined with Dr. Gill PHYSICAL EXAM: VITAL SIGNS: Reviewed. GENERAL: Well-developed in no acute distress. HEENT: No sclera icterus. Extraocular movements grossly intact. Moist buccal mucosa. Head is atraumatic, normocephalic. ABDOMEN: Soft. Distended. Prevena dressing was not hold suction. NEUROLOGIC: Alert and oriented. Cranial nerves II through XII grossly intact. ASSESSMENT: 1. Diverticulitis status post lower anterior resection 2. Postoperative hypotension. Improved with fluid resuscitation PLAN: -1 L fluid bolus ordered for low urine output -Continue IV fluids -Advance diet to clears -Continue to monitor urine output -Continue epidural for pain control. IV Tylenol added for pain management. Also patient has breakthrough IV Dilaudid as needed for pain -Incentive spirometer ordered -Patient transferred out of the ICU today -Prevena dressing continues to lose suction. New Missy dressing will be appl ied -DVT prophylaxis subcu heparin and GI prophylaxis Pepcid Physician Strawhat Blocking Operator note has been reviewed by physician. Signing provider agrees with the documented findings, assessment, and plan of care. Objective - Vital Signs Vital signs: Vital Signs Temp 98.0 F 04/13/24 08:00 Pulse 86 04/13/24 10:00 Resp 7 L 04/13/24 10:00 BP 122/60 04/13/24 10:00 Pulse Ox 93 L 04/13/24 10:00 FiO2 Intake & Output 04/12/24 04/13/24 04/13/24 18:59 06:59 18:59 Intake Total 2440.933 1375 375 Output Total 595 130 55 Balance 7458.657 2362 320 Weight 82.4 kg 93 kg Intake: IV 2140 1375 375 Lactated Ringers 1,000 ml 250 1375 375 @ 125 mls/hr IV .Q8H [facility] Rx#:[id number] Intake, IV Titration 5.933 Amount Ropivacaine 250 mg 5.933 Hydromorphone (Pf) 5 mg In Sodium Chloride 0.9% 200 ml @ Per Protocol EPIDURAL .Q0M PRN Rx#: [id number] Blood Product 295 Rc Pheresis As-3 Unit 295 [id number] Output: Urine 395 130 55 Estimated Blood Loss 200 Other: Voiding Method Indwelling Catheter - Labs CBC & Chem 7: 04/13/24 05:39 04/13/24 05:39 Labs: Abnormal Lab Results - Last 24 Hours (Table) 04/12/24 04/12/24 04/12/24 Range/Units 08:04 13:13 13:13 WBC (3.8-10.6) k/uL RBC 3.30 L (3.80-5.40) m/uL Hgb 9.7 L (11.4-16.0) gm/dL Hct 30.1 L (34.0-46.0) % Neutrophils # (1.3-7.7) k/uL Sodium 131 L (137-145) mmol/L BUN 5 L (7-17) mg/dL Glucose 130 H (74-99) mg/dL POC Glucose (mg/dL) (70-110) mg/dL Calcium 8.1 L (8.4-10.2) mg/dL Crossmatch See Detail 04/12/24 04/12/24 04/13/24 Range/Units 16:37 19:50 05:39 WBC 10.7 H (3.8-10.6) k/uL RBC (3.80-5.40) m/uL Hgb (11.4-16.0) gm/dL Hct (34.0-46.0) % Neutrophils # 8.7 H (1.3-7.7) k/uL Sodium (137-145) mmol/L BUN (7-17) mg/dL Glucose (74-99) mg/dL POC Glucose (mg/dL) 123 H 118 H (70-110) mg/dL Calcium (8.4-10.2) mg/dL Crossmatch 04/13/24 Range/Units 05:39 WBC (3.8-10.6) k/uL RBC (3.80-5.40) m/uL Hgb (11.4-16.0) gm/dL Hct (34.0-46.0) % Neutrophils # (1.3-7.7) k/uL Sodium 132 L (137-145) mmol/L BUN (7-17) mg/dL Glucose 104 H (74-99) mg/dL POC Glucose (mg/dL) (70-110) mg/dL Calcium (8.4-10.2) mg/dL Crossmatch
[2024-04-13] MEDS: SODIUM CHLORIDE 0.9% 1,000 ML IV ONE (12:44)
[2024-04-13] MEDS ORDERED: ACETAMINOPHEN TAB 500 MG TAB PO PRN (14:14)
--- NOTE | 2024-04-13 14:19 | P.CONS ---
History of Present Illness - Reason for Consult Consult date: 04/13/24 medical management - Chief Complaint hypotension - History of Present Illness 83-year-old female with a history of Hypothyroidism, hyperlipidemia, osteoarthritis who was admitted to the intensive care unit because of hypotension. The patient underwent a low anterior resection 04/12, with Dr. Nahomy weber. In the ICU patient received total of 4 L of LR Due to low blood pressure. In addition she was requiring oxygen at 5 L initially, this was weaned down to 1 L subsequently. Patient did receive 1 unit of packed red blood cells for lower than her baseline hemoglobin. Current laboratory data includes a white count 7.4, hemoglobin 9.7, hematocrit 30.1, and a platelet count of 340,000. Sodium 131, potassium 3.7, chlorides 101, CO2 27, BUN 5, creatinine 0.66. Glucose is 130. Calcium is 8.1. Review of Systems complete review of system performed, pertinent positive per HPI, otherwise negative Past Medical History Past Medical History: Hyperlipidemia, Hypertension, Memory Impairment, Osteoarthritis (OA), Thyroid Disorder Additional Past Medical History / Comment(s): hx c-diff 10/2013, hypothyroidism, fractured Lt. shoulder 2021, bilat. knee pain, diarrhea/diverticulitis - hospitalized @ [facility] 02/16/24 History of Any Multi-Drug Resistant Organisms: None Reported Year Discovered:: 10/2013 MDRO Source:: stool Past Surgical History: Breast Surgery, Hysterectomy, Joint Replacement, Tonsillectomy Additional Past Surgical History / Comment(s): Lt. TKA, Rt. breast lumpectomy- benign Past Anesthesia/Blood Transfusion Reactions: No Reported Reaction Additional Past Anesthesia/Blood Transfusion Reaction / Comm: Pt has never had a blood transfusion. Past Psychological History: Depression Additional Psychological History / Comment(s): . Smoking Status: Never smoker Past Alcohol Use History: None Reported Past Drug Use History: None Reported - Past Family History Daughter(s) Family Medical History: Cancer Additional Family Medical History / Comment(s): breast CA-recovered Father Family Medical History: Cancer Additional Family Medical History / Comment(s): testicular Mother Additional Family Medical History / Comment(s): Mother after wisdom tooth pulled and ended up with blood poisoning. Medications and Allergies Home Medications Medication Instructions Recorded Confirmed Type Escitalopram [Lexapro] 20 mg PO QAM 04/17/19 04/12/24 History Acetaminophen Tab [Tylenol] 500 mg PO Q6H PRN 02/15/24 04/12/24 History Furosemide [Lasix] 20 mg PO QAM 02/15/24 04/12/24 History Levothyroxine Sodium [Synthroid] 88 mcg PO QAM 02/15/24 04/12/24 History Potassium Chloride ER [K-Dur 20] 20 meq PO PC-BRKFST 02/15/24 04/12/24 History Lidocaine [Aspercreme Patch] 1 patch TRANSDERM DIRECTED PRN 03/21/24 04/12/24 History Allergies Allergy/AdvReac Type Severity Reaction Status Date / Time iodine Allergy Severe Abdominal Verified 04/12/24 07:53 Pain/hives clindamycin Allergy Nausea & Verified 04/12/24 07:53 Vomiting & Diarrhea codeine Allergy Rash/Hives Verified 04/12/24 07:53 oxycodone [From OxyContin] Allergy Unknown Verified 04/12/24 07:53 prednisone Allergy Unknown Verified 04/12/24 07:53 shellfish derived [Shellfish] Allergy Rash/Hives Verified 04/12/24 07:53 amoxicillin AdvReac Rash/Hives Verified 04/12/24 07:53 hydrocodone bitartrate AdvReac Nausea & Verified 04/12/24 07:53 [From Vicodin] Vomiting & Diarrhea venom-honey bee AdvReac Chest Pain Verified 04/12/24 07:53 [bee venom (honey bee)] Physical Exam Vitals: Vital Signs Temp Pulse Pulse Pulse Resp BP BP 04/13/24 11:49 97.9 F 83 20 105/62 04/13/24 10:00 86 7 L 122/60 04/13/24 09:00 87 15 125/64 04/13/24 08:00 98.0 F 88 16 127/65 04/13/24 07:45 99 21 121/59 04/13/24 07:30 87 10 L 121/57 04/13/24 07:15 87 14 123/61 04/13/24 07:00 82 12 125/59 04/13/24 06:45 85 9 L 126/59 04/13/24 06:30 87 9 L 123/64 04/13/24 06:15 85 13 124/59 04/13/24 06:00 86 8 L 127/60 04/13/24 05:45 86 7 L 122/60 04/13/24 05:30 85 8 L 117/57 04/13/24 05:15 86 11 L 113/60 04/13/24 05:00 85 5 L 114/58 04/13/24 04:45 87 7 L 117/59 04/13/24 04:30 83 5 L 119/58 04/13/24 04:15 86 5 L 116/59 04/13/24 04:00 97.5 F L 87 7 L 114/54 04/13/24 03:45 84 5 L 111/57 04/13/24 03:30 82 0 L 104/58 04/13/24 03:15 86 10 L 120/62 04/13/24 03:00 87 6 L 108/58 04/13/24 02:45 85 6 L 107/57 04/13/24 02:30 89 29 H 103/61 04/13/24 02:15 83 5 L 100/59 04/13/24 02:00 80 7 L 110/55 04/13/24 01:45 84 7 L 105/59 04/13/24 01:30 86 29 H 99/59 04/13/24 01:15 85 83 H 96/58 04/13/24 01:00 87 11 L 101/57 04/13/24 00:45 84 3 L 104/57 04/13/24 00:30 84 4 L 94/60 04/13/24 00:17 85 4 L 94/60 04/13/24 00:15 87 8 L 115/54 04/13/24 00:00 97.6 F 98 10 L 97/61 04/12/24 23:45 89 14 103/60 04/12/24 23:30 84 10 L 104/64 04/12/24 23:15 92 5 L 98/61 04/12/24 23:00 82 9 L 103/58 04/12/24 22:45 85 3 L 99/56 04/12/24 22:30 82 5 L 100/58 04/12/24 22:15 84 4 L 96/62 04/12/24 22:00 91 5 L 87/57 04/12/24 21:45 86 4 L 107/59 04/12/24 21:30 89 5 L 87/60 04/12/24 21:15 84 8 L 96/59 04/12/24 21:00 98 4 L 95/56 04/12/24 20:45 84 9 L 94/56 04/12/24 20:30 84 4 L 98/65 04/12/24 20:15 81 6 L 91/57 04/12/24 20:00 97.6 F 84 4 L 91/57 04/12/24 19:45 85 6 L 91/55 04/12/24 19:30 80 6 L 107/64 04/12/24 19:15 84 4 L 105/62 04/12/24 19:00 82 15 97/60 04/12/24 18:45 80 18 97/59 04/12/24 18:30 80 18 93/67 04/12/24 18:26 97.6 F 16 04/12/24 18:15 81 16 93/61 04/12/24 18:00 80 8 L 104/55 04/12/24 17:45 81 10 L 106/71 04/12/24 17:30 83 9 L 99/57 04/12/24 17:15 78 10 L 94/66 04/12/24 17:00 85 10 L 117/74 04/12/24 16:45 96.7 F L 80 16 97/60 04/12/24 16:30 04/12/24 16:08 97.4 F L 75 16 103/59 04/12/24 16:00 78 16 106/59 04/12/24 15:48 97.1 F L 78 16 118/62 04/12/24 15:39 97.4 F L 80 16 106/59 04/12/24 15:00 77 16 120/56 04/12/24 14:30 76 16 116/58 04/12/24 14:15 74 16 108/56 BP Pulse Ox 04/13/24 11:49 91 L 04/13/24 10:00 93 L 04/13/24 09:00 96 04/13/24 08:00 96 04/13/24 07:45 90 L 04/13/24 07:30 96 04/13/24 07:15 97 04/13/24 07:00 04/13/24 06:45 96 04/13/24 06:30 04/13/24 06:15 96 04/13/24 06:00 97 04/13/24 05:45 96 04/13/24 05:30 96 04/13/24 05:15 96 04/13/24 05:00 96 04/13/24 04:45 96 04/13/24 04:30 95 04/13/24 04:15 97 04/13/24 04:00 96 04/13/24 03:45 95 04/13/24 03:30 94 L 04/13/24 03:15 95 04/13/24 03:00 95 04/13/24 02:45 96 04/13/24 02:30 97 04/13/24 02:15 95 04/13/24 02:00 96 04/13/24 01:45 95 04/13/24 01:30 95 04/13/24 01:15 96 04/13/24 01:00 96 04/13/24 00:45 97 04/13/24 00:30 96 04/13/24 00:17 95 04/13/24 00:15 96 04/13/24 00:00 95 04/12/24 23:45 96 04/12/24 23:30 96 04/12/24 23:15 96 04/12/24 23:00 96 04/12/24 22:45 96 04/12/24 22:30 96 04/12/24 22:15 96 04/12/24 22:00 96 04/12/24 21:45 95 04/12/24 21:30 94 L 04/12/24 21:15 96 04/12/24 21:00 95 04/12/24 20:45 97 04/12/24 20:30 97 04/12/24 20:15 95 04/12/24 20:00 95 04/12/24 19:45 95 04/12/24 19:30 96 04/12/24 19:15 95 04/12/24 19:00 94 L 04/12/24 18:45 94 L 04/12/24 18:30 94 L 04/12/24 18:26 97/59 04/12/24 18:15 93 L 04/12/24 18:00 95 04/12/24 17:45 93 L 04/12/24 17:30 95 04/12/24 17:15 94 L 04/12/24 17:00 94 L 04/12/24 16:45 93 L 04/12/24 16:30 99 04/12/24 16:08 100 04/12/24 16:00 99 04/12/24 15:48 98 04/12/24 15:39 100 04/12/24 15:00 99 04/12/24 14:30 100 04/12/24 14:15 98 Intake and Output 04/12/24 04/13/24 04/13/24 22:59 06:59 14:59 Intake Total 1605.034 9695 375 Output Total 350 95 55 Balance 1215.933 905 320 Intake: IV 1265 1000 375 Lactated Ringers 1,000 ml 625 1000 375 @ 125 mls/hr IV .Q8H [facility] Rx#:[id number] Intake, IV Titration 5.933 Amount Ropivacaine 250 mg 5.933 Hydromorphone (Pf) 5 mg In Sodium Chloride 0.9% 200 ml @ Per Protocol EPIDURAL .Q0M PRN Rx#: [id number] Blood Product 295 Rc Pheresis As-3 Unit 295 [id number] Output: Urine 350 95 55 Other: Voiding Method Indwelling Catheter Weight 82.4 kg 93 kg 93 kg Vital signs reviewed and stable. General: Nontoxic, no distress and appears stated age. Derm: Skin warm and dry, normal coloration for ethnicity. Head: Atraumatic, normocephalic and symmetric. Eyes: EOMs intact, no lid lag, and anicteric sclera Mouth: no lip lesions, mucus membranes moist Cardiovascular: regular rate and rhythm with normal S1S2, systolic murmur, positive posterior tibial pulses bilaterally, and cap refill < 2 seconds. Lungs: Respirations even, regular, and unlabored on room air. Lungs CTA bilaterally, no rhonchi, no rales, no wheezing, and no accessory muscle usage. Abdominal: soft, nontender to palpation, no guarding, no appreciable organomegaly. Ext: ROM intact. No gross muscle atrophy, no edema, no contractures Neuro: Speech clear, face symmetrical and CN II-XII grossly intact with no noted focal neuro deficits Psych: Alert and oriented to person, place, time, and situation. Appropriate and pleasant affect. Results CBC & Chem 7: 04/13/24 05:39 04/13/24 05:39 Labs: Abnormal Lab Results - Last 24 Hours (Table) 04/12/24 04/12/24 04/12/24 Range/Units 08:04 16:37 19:50 WBC (3.8-10.6) k/uL Neutrophils # (1.3-7.7) k/uL Sodium (137-145) mmol/L Glucose (74-99) mg/dL POC Glucose (mg/dL) 123 H 118 H (70-110) mg/dL Crossmatch See Detail 04/13/24 04/13/24 Range/Units 05:39 05:39 WBC 10.7 H (3.8-10.6) k/uL Neutrophils # 8.7 H (1.3-7.7) k/uL Sodium 132 L (137-145) mmol/L Glucose 104 H (74-99) mg/dL POC Glucose (mg/dL) (70-110) mg/dL Crossmatch Assessment and Plan Plan: Diverticulitis with hx of recent diverticular abscess -She is s/p Low anterior resection by surgery - pain control according to surgery. - patient initiated on liquid diet Hypotension - likely secondary to meds used during surgery, Possibly blood loss. - resolved with IV fluids. - Monitor blood pressure Hypothyroidism -Continue daily medication regimen with levothyroxine 88 mcg daily. Dyslipidemia -Continue daily medication regimen with atorvastatin 20 mg nightly. Depression -Daily medication regimen with Lexapro 20 mg daily. CODE STATUS: Full code DVT prophylaxis: Heparin Anticipated discharge date: Pending clinical course Anticipated discharge place: Pending clinical course
[2024-04-13 16:57] LABS: Glucose,Whole Blood 90 mg/dL (70-110)
[2024-04-14] MEDS: FUROSEMIDE 20 MG TAB PO SCH (07:40)
[2024-04-14] MEDS: POTASSIUM CHLORIDE ER 20 MEQ TAB.ER PO SCH (07:40)
[2024-04-14] MEDS: ESCITALOPRAM 20 MG TAB PO SCH (07:40)
[2024-04-14] MEDS: LEVOTHYROXINE 88 MCG TAB PO SCH (07:41)
[2024-04-14 08:32] LABS: Basophils # (A) 0.02 X 10*3/uL (0.00-0.10); Basophils % (A) 0.2 %; Eosinophils # (A) 0.04 X 10*3/uL (0.04-0.35); Eosinophils % (A) 0.4 %; HCT 28.4 % (37.2-46.3); HGB 9.4 g/dL (12.0-15.0); Lymphocytes # (A) 1.34 X 10*3/uL (0.90-5.00); Lymphocytes % (A) 12.6 %; MCH 29.5 pg (27.0-32.0); MCHC 33.1 g/dL (32.0-37.0); Mean Platelet Volume 10.2 FL (9.5-12.2); Monocytes # (A) 0.82 X 10*3/uL (0.20-1.00); Monocytes % (A) 7.7 %; NRBC Per 100 WBC 0 X 10*3/uL (0.00-0.01); Neutrophils # (A) 8.37 X 10*3/uL (1.80-7.70); Neutrophils % (A) 78.8 %; Platelet Count 278 X 10*3/uL (140-440); RBC 3.19 X 10*6/uL (4.10-5.20); RDW 15.3 % (11.5-14.5); WBC 10.62 X 10*3/uL (4.50-10.00)
[2024-04-14 08:37] LABS: BUN/Creat Ratio 12.64 Ratio (12.00-20.00); Blood Urea Nitrogen 13.9 mg/dL (9.0-27.0); Calcium 8.1 mg/dL (8.7-10.3); Carbon Dioxide 24.6 mmol/L (21.6-31.8); Chloride 96 mmol/L (96-109); Glucose 89 mg/dL (70-110); Potassium 4.5 mmol/L (3.5-5.5); Sodium 128 mmol/L (135-145)
[2024-04-14] MEDS: ONDANSETRON 4 MG/2 ML VIAL IVP PRN (09:35)
--- NOTE | 2024-04-14 10:57 | P.PN ---
Subjective Progress Note Date: 04/14/24 Principal diagnosis: Hypotension. Pulmonary/critical care consult dated April 12, 2024. 83-year-old female with a history of diverticulitis. The patient underwent a low anterior resection today, with Dr. Gill. Today is postoperative day #0. I was asked to see the patient because the patient had some transient hypotension. She is currently seen in the recovery area, and she is currently on 4 L of oxygen. She is receiving a lactated Ringer's bolus, her third liter and, the LR will be running at 125 cc an hour. Her current blood pressure is about 90 systolic. In addition, she will get 1 unit of packed red blood cells. The patient is still very sedated, recently having had surgery. She has a history of hyperlipidemia, osteoarthritis, and hypothyroidism. She has had a number of different surgeries including breast surgery, heart catheterization, hysterectomy, etc. Current laboratory data includes a white count 7.4, hemoglobin 9.7, hematocrit 30.1, and a platelet count of 340,000. Sodium 131, potassium 3.7, chlorides 101, CO2 27, BUN 5, creatinine 0.66. Glucose is 130. Calcium is 8.1. Progress note dated April 13, 2024. This is a 83-year-old female seen yesterday in the postoperative care unit. The patient apparently had a low anterior resection for diverticular disease. Today is postop day #1. After surgery, the patient was hypotensive. The patient received 3 L of fluid, and, she was seen in the postanesthesia care unit. The patient is seen today in room 254, ICU. She is on O2 at 4 L. She is getting lactated Ringer's at 125 cc an hour. Today is postoperative day #1. She did receive 1 unit of packed red blood cells. White count 10.7, hemoglobin 12.2, hematocrit 37.5, platelet count 3 69,000. Sodium 132, potassium 4.6, chlorides 102, CO2 25, anion gap 5, BUN 11, creatinine 1. Calcium is 8.7. Glucose is 104. Progress note dated April 14, 2024. Patient is an 83-year-old female seen today in room 485. She is status post low anterior resection for diverticular disease. Today's postop day #2. After surgery the patient was hypotensive. Today she is on lactated Ringer at 125 ml/h. She is on 3 L of oxygen with 92% saturation. Denies shortness of breath, cough. Does complain of vomiting without blood. Labs show WBC 10.62, hemoglobin 9.4, platelets 78, sodium 128, potassium 4.5 chloride 96, BUN 13.9, creatinine 1.1 and glucose 89. Will continue to follow and make recommendations. Objective - Vital Signs Vital signs: Vital Signs Temp 97.9 F 04/14/24 07:25 Pulse 96 04/14/24 07:25 Resp 20 04/14/24 07:25 BP 102/68 04/14/24 07:25 Pulse Ox 93 L 04/14/24 08:02 FiO2 Intake & Output 04/13/24 04/14/24 04/14/24 18:59 06:59 18:59 Intake Total 735 Output Total 155 400 Balance 580 -400 Weight 93 kg 98.5 kg Intake: IV 375 Lactated Ringers 1,000 ml 375 @ 125 mls/hr IV .Q8H [facility] Rx#:[id number] Oral 360 Output: Urine 155 400 Other: Voiding Method Indwelling Catheter Indwelling Catheter Indwelling Catheter - Exam No acute distress, awake and alert, currently on 3 L. Saturations are 93%. HEENT examination is grossly unremarkable. Mucous membranes are moist. No oral lesions. Neck supple. Full range of motion. No adenopathy thyromegaly or neck vein distention. Cardiovascular examination reveals regular rhythm rate. S1-S2 normal. No S3 or S4. No discernible murmur noted. Heart sounds are distant. Heart rate 96 bpm. Blood pressure is 102/68. Lungs reveal clear breath sounds. Breath sounds are equal bilaterally. No adventitious lung sounds including wheezes rhonchi or crackles. Abdomen soft without bowel sounds. No masses. Extremities are intact. No cyanosis clubbing or edema. Skin is without rash or lesion. Neurologic examination is brief but nonfocal. - Labs CBC & Chem 7: 04/14/24 04:57 04/14/24 04:57 Labs: Abnormal Lab Results - Last 24 Hours (Table) 04/14/24 04/14/24 Range/Units 04:57 04:57 WBC 10.62 H (4.50-10.00) X 10*3/uL RBC 3.19 L (4.10-5.20) X 10*6/uL Hgb 9.4 L (12.0-15.0) g/dL Hct 28.4 L (37.2-46.3) % RDW 15.3 H (11.5-14.5) % Neutrophils # 8.37 H (1.80-7.70) X 10*3/uL Sodium 128 L (135-145) mmol/L Est GFR (CKD-EPI) 50 L (>=60) Calcium 8.1 L (8.7-10.3) mg/dL Assessment and Plan Assessment: Postoperative day #2, status post low anterior resection, for diverticulitis. Postoperative hypotension, currently being fluid resuscitated, resolved. History of hypothyroidism. History of hyperlipidemia. History of osteoarthritis. Plan: Plan dated April 12, 2024. The patient is seen in the phase 1 postanesthesia care unit(PACU). Currently, the patient is on 4 L of oxygen. The patient is getting lactated Ringer's bolus, which is her third liter of fluid. Her blood pressure is about 94-95 systolic. She also has a unit of blood being ordered. Her rate on the lactated Ringer's will be 125 cc an hour, after the bolus. Labs, x-rays, medications are reviewed. Overall prognosis remains guarded. We will continue to follow the patient, make recommendations along the way. I did speak to the surgeon would appreciate the ICU, for this patient, for closer monitoring and management. Plan dated April 13, 2024. The patient is seen in the intensive care unit. The patient's blood pressure is now much more stable, after fluid resuscitation, and 1 unit of packed red blood cells. Labs, x-rays, and medications are reviewed. The patient is much more awake and alert. Today is postoperative day #1. Labs, and x-rays, have been reviewed. Medications have been reviewed. Everything appears to be appropriate. Will continue to follow the patient, make recommendations along the way. The patient is encouraged to deep breathe, cough, clear secretions. The patient is also encouraged to use the incentive spirometer, every hour while awake. Plan dated April 14, 2024. Patient is seen on general medical floor, room 485. Patient's blood pressure is now stable after fluid resuscitation. She remains on lactated Ringer at 125 cc/h. She is 3 L oxygen via nasal cannula with saturations at 93%. The patient is awake and alert. Today's postop day #2. Labs and x-rays have been reviewed. Medications have been reviewed. Will continue to follow the patient, make recommendations along the way. The patient is encouraged to deep breathe, cough, clear secretions. The patient is also encouraged to use the incentive spirometer, every hour while awake. Time spent with the patient: 20 minutes Time with Patient: Less than 30
--- NOTE | 2024-04-14 11:06 | P.PN ---
Progress Note - Text Progress Note Date: 04/14/24 Postoperative day # 2 status post low anterior resection ,epidural catheter ( catheter day # 3 ) catheter placed for postoperative analgesia, patient doing well epidural site okay, patient currently on combination of epidural infusion solution of Ropivacaine 0.0625% and Dilaudid 20 g per mL the infusion rate at 4 ml per hour , patient had no motor deficit epidural site okay , vital signs stable ,VAS 2 /10 , epidural site ok Assessment and plan= post operative day # 2 patient doing well ,pain well controlled , there is no anesthesia related complications
--- NOTE | 2024-04-14 11:07 | XR ---
EXAMINATION TYPE: XR chest 2V DATE OF EXAM: 04/14/2024 10:56 AM COMPARISON: Chest radiograph 07/05/2015 TECHNIQUE: XR chest 2V Frontal and lateral views of the chest. CLINICAL INDICATION:Female, 83 years old with history of hypoxia; FINDINGS: Lungs/Pleura: Blunting of both costophrenic angles with left basilar patchy airspace opacities. Pulmonary vascularity: Unremarkable. Heart/mediastinum: Cardiomediastinal silhouette is mildly enlarged. Atherosclerotic calcifications a re seen in the aorta. Musculoskeletal: No acute osseous pathology. Multilevel degenerative changes of the visualized spine. IMPRESSION: Small bilateral pleural effusions with left basilar airspace opacities which may represent atelectasi s versus pneumonia in the appropriate clinical setting.
[2024-04-14] MEDS: SODIUM CHLORIDE 0.9% 1,000 ML IV STA (11:12)
[2024-04-14] MEDS: FUROSEMIDE 10 MG/ML 2 ML VIAL IV SCH (11:13)
--- NOTE | 2024-04-14 13:16 | P.PN ---
Subjective Progress Note Date: 04/14/24 Principal diagnosis: hypotension Patient still getting epidural infusion of bupivacaine and Dilaudid. Still requiring oxygen via nasal cannula due to O2 saturations in the 80s on room air. Denies having nausea or vomiting. No chest pain or shortness of breath. No fevers. Objective - Vital Signs Vital signs: Vital Signs Temp 97.9 F 04/14/24 07:25 Pulse 96 04/14/24 07:25 Resp 20 04/14/24 07:25 BP 130/75 04/14/24 11:15 Pulse Ox 93 L 04/14/24 08:02 FiO2 Intake & Output 04/13/24 04/14/24 04/14/24 18:59 06:59 18:59 Intake Total 735 Output Total 155 400 Balance 580 -400 Weight 93 kg 98.5 kg Intake: IV 375 Lactated Ringers 1,000 ml 375 @ 125 mls/hr IV .Q8H [facility] Rx#:[id number] Oral 360 Output: Urine 155 400 Other: Voiding Method Indwelling Catheter Indwelling Catheter Indwelling Catheter - Exam Vital signs reviewed and stable. General: Nontoxic, no distress and appears stated age. Derm: Skin warm and dry, normal coloration for ethnicity. Head: Atraumatic, normocephalic and symmetric. Eyes: EOMs intact, no lid lag, and anicteric sclera Mouth: no lip lesions, mucus membranes moist Cardiovascular: regular rate and rhythm with normal S1S2, systolic murmur, positive posterior tibial pulses bilaterally, and cap refill < 2 seconds. Lungs: Respirations even, regular, and unlabored on room air. Lungs CTA bilaterally, no rhonchi, no rales, no wheezing, and no accessory muscle usage. Abdominal: soft, nontender to palpation, no guarding, no appreciable organomegaly. Ext: ROM intact. No gross muscle atrophy, no edema, no contractures Neuro: Speech clear, face symmetrical and CN II-XII grossly intact with no noted focal neuro deficits Psych: Alert and oriented to person, place, time, and situation. Appropriate and pleasant affect. - Labs CBC & Chem 7: 04/14/24 04:57 04/14/24 04:57 Labs: Abnormal Lab Results - Last 24 Hours (Table) 04/14/24 04/14/24 Range/Units 04:57 04:57 WBC 10.62 H (4.50-10.00) X 10*3/uL RBC 3.19 L (4.10-5.20) X 10*6/uL Hgb 9.4 L (12.0-15.0) g/dL Hct 28.4 L (37.2-46.3) % RDW 15.3 H (11.5-14.5) % Neutrophils # 8.37 H (1.80-7.70) X 10*3/uL Sodium 128 L (135-145) mmol/L Est GFR (CKD-EPI) 50 L (>=60) Calcium 8.1 L (8.7-10.3) mg/dL Assessment and Plan Plan: Diverticulitis with hx of recent diverticular abscess -She is s/p Low anterior resection by surgery - pain control according to surgery. - patient initiated on liquid diet Hypoxia - chest x-ray ordered, showed bilateral pleural effusions and bilateral lower lobes edema versus atelectasis - patient encouraged to use incentive spirometry device - Lasix 20 mg IV daily. Hypotension - likely secondary to meds used during surgery, Possibly blood loss. - resolved with IV fluids. - Monitor blood pressure Hyponatremia - patient received large volumes of LR fluids, will discontinue - monitor BMP Hypothyroidism -Continue daily medication regimen with levothyroxine 88 mcg daily. Dyslipidemia -Continue daily medication regimen with atorvastatin 20 mg nightly. Depression -Daily medication regimen with Lexapro 20 mg daily. CODE STATUS: Full code DVT prophylaxis: Heparin Anticipated discharge date: Pending clinical course Anticipated discharge place: Pending clinical course
--- NOTE | 2024-04-14 13:45 | P.NPCON ---
History of Present Illness - Reason for Consult hyponatremia - History of Present Illness patient is an 83-year-old female with history of diverticulitis, admitted to the ICU with hypotension and abdominal pain. Status post low anterior resection and takedown of splenic flexure on 04/12/2024. Serum sodium was noted to be 128 today. Serum sodium was 132 yesterday. Status post IV fluids and received a dose of Lasix today. IV fluids were discontinued this morning. chest x-ray shows Bilateral small pleural effusions. Blood pressure has not been low. No significant complaints of shortness of breath. Past Medical History Past Medical History: Hyperlipidemia, Hypertension, Memory Impairment, Osteoarthritis (OA), Thyroid Disorder Additional Past Medical History / Comment(s): hx c-diff 10/2013, hypothyroidism, fractured Lt. shoulder 2021, bilat. knee pain, diarrhea/diverticulitis - hospitalized @ [facility] 02/16/24 History of Any Multi-Drug Resistant Organisms: None Reported Date of last positivie culture/infection: 10/2013 MDRO Source:: stool Past Surgical History: Breast Surgery, Hysterectomy, Joint Replacement, Tonsillectomy Additional Past Surgical History / Comment(s): Lt. TKA, Rt. breast lumpectomy- benign Past Anesthesia/Blood Transfusion Reactions: No Reported Reaction Additional Past Anesthesia/Blood Transfusion Reaction / Comment(s): Pt has never had a blood transfusion. Past Psychological History: Depression Additional Psychological History / Comment(s): . Smoking Status: Never smoker Past Alcohol Use History: None Reported Past Drug Use History: None Reported - Past Family History Daughter(s) Family Medical History: Cancer Additional Family Medical History / Comment(s): breast CA-recovered Father Family Medical History: Cancer Additional Family Medical History / Comment(s): testicular Mother Additional Family Medical History / Comment(s): Mother after wisdom tooth pulled and ended up with blood poisoning. Medications and Allergies Home Medications Medication Instructions Recorded Confirmed Type Escitalopram [Lexapro] 20 mg PO QAM 04/17/19 04/12/24 History Acetaminophen Tab [Tylenol] 500 mg PO Q6H PRN 02/15/24 04/12/24 History Furosemide [Lasix] 20 mg PO QAM 02/15/24 04/12/24 History Levothyroxine Sodium [Synthroid] 88 mcg PO QAM 02/15/24 04/12/24 History Potassium Chloride ER [K-Dur 20] 20 meq PO PC-[id number] 02/15/24 04/12/24 History Lidocaine [Aspercreme Patch] 1 patch TRANSDERM DIRECTED PRN 03/21/24 04/12/24 History Allergies Allergy/AdvReac Type Severity Reaction Status Date / Time iodine Allergy Severe Abdominal Verified 04/12/24 07:53 Pain/hives clindamycin Allergy Nausea & Verified 04/12/24 07:53 Vomiting & Diarrhea codeine Allergy Rash/Hives Verified 04/12/24 07:53 oxycodone [From OxyContin] Allergy Unknown Verified 04/12/24 07:53 prednisone Allergy Unknown Verified 04/12/24 07:53 shellfish derived [Shellfish] Allergy Rash/Hives Verified 04/12/24 07:53 amoxicillin AdvReac Rash/Hives Verified 04/12/24 07:53 hydrocodone bitartrate AdvReac Nausea & Verified 04/12/24 07:53 [From Vicodin] Vomiting & Diarrhea venom-honey bee AdvReac Chest Pain Verified 04/12/24 07:53 [bee venom (honey bee)] Physical Exam Vitals: Vital Signs Temp Pulse Resp BP BP Pulse Ox 04/14/24 11:15 130/75 04/14/24 08:02 93 L 04/14/24 07:25 97.9 F 96 20 102/68 89 L 04/14/24 02:00 98.2 F 92 137/78 81 L 04/13/24 20:00 97.9 F 83 131/77 92 L 04/13/24 13:58 97.5 F L 85 18 112/75 90 L Intake and Output 04/13/24 04/14/24 04/14/24 22:59 06:59 14:59 Intake Total 180 Output Total 100 400 Balance 80 -400 Intake: Oral 180 Output: Urine 100 400 Other: Voiding Method Indwelling Catheter Indwelling Catheter Weight 98.5 kg Patient is awake, comfortable, no acute distress. Examination of the heart S1 and S2 Examination of the lungs bilateral breath sounds are heard Abdomen is dressed. 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 Hyponatremia, patient appears hypervolemic. Agree with discontinuation of normal saline. Patient has received IV Lasix. Repeat sodium this afternoon. 2. Diverticulitis with history of recent diverticular abscess, status post low anterior resection and takedown of splenic flexure on 04/12/2024 3. anemia postop, rule out iron deficiency Plan: continue off of IV fluids. Repeat sodium this evening. Check iron profile next Thank you for the consultation. We will continue to follow the patient with you during her hospitalization.
--- NOTE | 2024-04-14 15:06 | P.PN ---
Subjective Progress Note Date: 04/14/24 CHIEF COMPLAINT: Diverticulitis HISTORY OF PRESENT ILLNESS: The patient is a 83-year-old female status post low anterior resection for diverticulitis. She had a turbulent postoperative course including acute hypotension requiring both blood and large IV fluid boluses over 4 L. She had subsequent oliguria for which nephrology has been consulted. She reports moderate nausea and is unable to tolerate clear liquids. ROS: No bowel movements. No fevers or chills. No new chest pain. No productive sputum PHYSICAL EXAM: VITAL SIGNS: Reviewed CONSTITUTIONAL: Well developed and in no acute distress. EYES: Conjuctivae without sclera icterus. Extraocular movements grossly intact. HEAD, EARS, NOSE, THROAT: Moist buccal mucosa. Head is atraumatic, normocephalic. Hears conversational speech. No nasal drainage. RESPIRATORY: Non-labored respirations and equal bilateral excursions. CARDIOVASCULAR: Palpable 2+ radial pulses. ABDOMEN: No peritonitis. MUSCULOSKELETAL: No gross deformity of the lower extremities noted. No clubbing. No cyanosis. SKIN: Good skin turgor. Well perfused. NEUROLOGIC: Cranial nerves II through XII grossly intact. No focal or lateralizing signs. PSYCH: Alert to self. CLINICAL LABS: Reviewed. WBC stable 10.7 10.6. Hemoglobin down 12.2-9.4. ASSESSMENT: 1. Diverticulitis 2. Postoperative hypotension 3. Oligoria with acute kidney injury PLAN: 1. Downgrade diet to ice chips and popsicles. 2. Adjust medications for antinausea meds 3. Recommend physical therapy occupational therapy for global weakness Objective - Vital Signs Vital signs: Vital Signs Temp 97.5 F L 04/14/24 14:18 Pulse 80 04/14/24 14:18 Resp 20 04/14/24 14:18 BP 125/78 04/14/24 14:18 Pulse Ox 93 L 04/14/24 14:18 FiO2 Intake & Output 04/13/24 04/14/24 04/14/24 18:59 06:59 18:59 Intake Total 735 Output Total 155 400 Balance 580 -400 Weight 93 kg 98.5 kg Intake: IV 375 Lactated Ringers 1,000 ml 375 @ 125 mls/hr IV .Q8H [facility] Rx#:[id number] Oral 360 Output: Urine 155 400 Other: Voiding Method Indwelling Catheter Indwelling Catheter Indwelling Catheter - Labs CBC & Chem 7: 04/14/24 04:57 04/14/24 04:57 Labs: Abnormal Lab Results - Last 24 Hours (Table) 04/14/24 04/14/24 Range/Units 04:57 04:57 WBC 10.62 H (4.50-10.00) X 10*3/uL RBC 3.19 L (4.10-5.20) X 10*6/uL Hgb 9.4 L (12.0-15.0) g/dL Hct 28.4 L (37.2-46.3) % RDW 15.3 H (11.5-14.5) % Neutrophils # 8.37 H (1.80-7.70) X 10*3/uL Sodium 128 L (135-145) mmol/L Est GFR (CKD-EPI) 50 L (>=60) Calcium 8.1 L (8.7-10.3) mg/dL
[2024-04-15 10:31] LABS: Blood Urea Nitrogen 11.6 mg/dL (9.0-27.0); Calcium 8.2 mg/dL (8.7-10.3); Carbon Dioxide 24.6 mmol/L (21.6-31.8); Chloride 96 mmol/L (96-109); Glucose 89 mg/dL (70-110); Sodium 130 mmol/L (135-145)
--- NOTE | 2024-04-15 10:35 | P.PN ---
Subjective Progress Note Date: 04/15/24 Principal diagnosis: Hypotension. Pulmonary/critical care consult dated April 12, 2024. 83-year-old female with a history of diverticulitis. The patient underwent a low anterior resection today, with Dr. Gill. Today is postoperative day #0. I was asked to see the patient because the patient had some transient hypotension. She is currently seen in the recovery area, and she is currently on 4 L of oxygen. She is receiving a lactated Ringer's bolus, her third liter and, the LR will be running at 125 cc an hour. Her current blood pressure is about 90 systolic. In addition, she will get 1 unit of packed red blood cells. The patient is still very sedated, recently having had surgery. She has a history of hyperlipidemia, osteoarthritis, and hypothyroidism. She has had a number of different surgeries including breast surgery, heart catheterization, hysterectomy, etc. Current laboratory data includes a white count 7.4, hemoglobin 9.7, hematocrit 30.1, and a platelet count of 340,000. Sodium 131, potassium 3.7, chlorides 101, CO2 27, BUN 5, creatinine 0.66. Glucose is 130. Calcium is 8.1. Progress note dated April 13, 2024. This is a 83-year-old female seen yesterday in the postoperative care unit. The patient apparently had a low anterior resection for diverticular disease. Today is postop day #1. After surgery, the patient was hypotensive. The patient received 3 L of fluid, and, she was seen in the postanesthesia care unit. The patient is seen today in room 254, ICU. She is on O2 at 4 L. She is getting lactated Ringer's at 125 cc an hour. Today is postoperative day #1. She did receive 1 unit of packed red blood cells. White count 10.7, hemoglobin 12.2, hematocrit 37.5, platelet count 3 69,000. Sodium 132, potassium 4.6, chlorides 102, CO2 25, anion gap 5, BUN 11, creatinine 1. Calcium is 8.7. Glucose is 104. Progress note dated April 14, 2024. Patient is an 83-year-old female seen today in room 485. She is status post low anterior resection for diverticular disease. Today's postop day #2. After surgery the patient was hypotensive. Today she is on lactated Ringer at 125 ml/h. She is on 3 L of oxygen with 92% saturation. Denies shortness of breath, cough. Does complain of vomiting without blood. Labs show WBC 10.62, hemoglobin 9.4, platelets 78, sodium 128, potassium 4.5 chloride 96, BUN 13.9, creatinine 1.1 and glucose 89. Will continue to follow and make recommendations. Progress note dated April 15, 2024. 83-year-old female seen today in room 45. She is status post low anterior resection for diverticular disease. Today's postop day #3. Hypotension is resolved ,today her blood pressure is 143/79 and fluids have been discontinued. Furosemide 20 mg. She continues to be on 3 L of oxygen via nasal cannula. Patient is advised to use incentive spirometer but says it makes her cough. She has been educated about incentive spirometer use. Denies shortness of breath, cough and chest pain. Labs showed WBC 10.62, hemoglobin 9.4, platelets 278, sodium 128, potassium 4.5, chloride 96, BUN 13.9 and creatinine 1.1 with glucose 89. Patient seems to be stable from the pulmonary standpoint. We will make recommendations as needed. Objective - Vital Signs Vital signs: Vital Signs Temp 100.1 F H 04/15/24 06:48 Pulse 104 H 04/15/24 06:48 Resp 18 04/15/24 02:10 BP 143/79 04/15/24 08:09 Pulse Ox 90 L 04/15/24 06:48 FiO2 Intake & Output 04/14/24 04/15/24 04/15/24 18:59 06:59 18:59 Output Total 1100 625 Balance -1100 -625 Output: Urine 1100 625 Other: Voiding Method Indwelling Catheter Indwelling Catheter - Exam No acute distress, awake and alert, currently on 3 L. HEENT examination is grossly unremarkable. Mucous membranes are moist. No oral lesions. Neck supple. Full range of motion. No adenopathy thyromegaly or neck vein distention. Cardiovascular examination reveals regular rhythm rate. S1-S2 normal. No S3 or S4. No discernible murmur noted. Heart sounds are distant. Heart rate 104 bpm. Blood pressure is 143/79. Lungs reveal clear breath sounds. Breath sounds are equal bilaterally. No adventitious lung sounds including wheezes rhonchi or crackles. Abdomen soft without bowel sounds. No masses. Extremities are intact. Lower extremity edema. Skin is without rash or lesion. Neurologic examination is brief but nonfocal. - Labs CBC & Chem 7: 04/14/24 04:57 04/14/24 04:57 Assessment and Plan Assessment: Postoperative day #3, status post low anterior resection, for diverticulitis. Postoperative hypotension, resolved. History of hypothyroidism. History of hyperlipidemia. History of osteoarthritis. Plan: Plan dated April 12, 2024. The patient is seen in the phase 1 postanesthesia care unit(PACU). Currently, the patient is on 4 L of oxygen. The patient is getting lactated Ringer's german us, which is her third liter of fluid. Her blood pressure is about 94-95 systolic. She also has a unit of blood being ordered. Her rate on the lactated Ringer's will be 125 cc an hour, after the bolus. Labs, x-rays, medications are reviewed. Overall prognosis remains guarded. We will continue to follow the patient, make recommendations along the way. I did speak to the surgeon would appreciate the ICU, for this patient, for closer monitoring and management. Plan dated April 13, 2024. The patient is seen in the intensive care unit. The patient's blood pressure is now much more stable, after fluid resuscitation, and 1 unit of packed red blood cells. Labs, x-rays, and medications are reviewed. The patient is much more awake and alert. Today is postoperative day #1. Labs, and x-rays, have been reviewed. Medications have been reviewed. Everything appears to be appropriate. Will continue to follow the patient, make recommendations along the way. The patient is encouraged to deep breathe, cough, clear secretions. The patient is also encouraged to use the incentive spirometer, every hour while awake. Plan dated April 14, 2024. Patient is seen on general medical floor, room 485. Patient's blood pressure is now stable after fluid resuscitation. She remains on lactated Ringer at 125 cc/h. She is 3 L oxygen via nasal cannula with saturations at 93%. The patient is awake and alert. Today's postop day #2. Labs and x-rays have been reviewed. Medications have been reviewed. Will continue to follow the patient, make recommendations along the way. The patient is encouraged to deep breathe, cough, clear secretions. The patient is also encouraged to use the incentive spirometer, every hour while awake. Time spent with the patient: 20 minutes Plan dated April 15, 2024. Patient is seen in room 485. Her blood pressure is now stable at 143/79 and IV fluids have been discontinued. Furosemide 20 mg. She is on 3 L oxygen via nasal cannula. The patient is awake and alert. Today's postop day #3. Labs and x-rays and medications have been reviewed. Patient is encouraged to use incentive spirometer. GI prophylaxis. DVT prophylaxis. She is stable from a pulmonary standpoint. We will make recommendations as needed. Time with Patient: Less than 30
--- NOTE | 2024-04-15 13:47 | P.PN ---
Subjective Progress Note Date: 04/15/24 Subjective Patient seen this morning. She is complaining of intractable nausea vomiting. She states that she has not had a bowel movement since surgery. Patient is also complaining of upper respiratory symptoms. She states that she has a runny nose and has to continue to wipe it. She also states that she has a sore throat. This morning patient did have a fever of 100.1. 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 - patient initiated on liquid diet Intractable nausea and vomiting Suspect postop ileus Patient denies any bowel movements since surgery Will defer to general surgery Acute hypoxic respiratory failure Mild volume overload likely iatrogenic due to fluids given during surgery Bilateral pneumonia Chest x-ray yesterday showed small bilateral pleural effusions with left basilar airspace opacity which may represent atelectasis versus pneumonia Patient did have a fever this morning Will start the patient on IV Rocephin and azithromycin Will check for COVID-19 patient encouraged to use incentive spirometry device Lasix 20 mg IV daily. Wean O2 as tolerated Pulmonology on board Hypotension - likely secondary to meds used during surgery Resolved Hypervolemic hyponatremia Improving with diuretics Sodium this morning 130 Nephrology on board Hypothyroidism -Continue daily medication regimen with levothyroxine 88 mcg daily. Dyslipidemia -Continue daily medication regimen with atorvastatin 20 mg nightly. Depression -Daily medication regimen with Lexapro 20 mg daily. CODE STATUS: Full code DVT prophylaxis: Heparin Anticipated discharge date: Pending clinical course Anticipated discharge place: Pending clinical course Objective - Vital Signs Vital signs: Vital Signs Temp 98.6 F 04/15/24 08:09 Pulse 85 04/15/24 08:09 Resp 17 04/15/24 08:09 BP 143/79 04/15/24 08:09 Pulse Ox 93 L 04/15/24 08:09 FiO2 Intake & Output 04/14/24 04/15/24 04/15/24 18:59 06:59 18:59 Output Total 1100 625 Balance -1100 -625 Output: Urine 1100 625 Other: Voiding Method Indwelling Catheter Indwelling Catheter - Labs CBC & Chem 7: 04/14/24 04:57 04/15/24 04:17 Labs: Abnormal Lab Results - Last 24 Hours (Table) 04/15/24 Range/Units 04:17 Sodium 130 L (135-145) mmol/L Est GFR (CKD-EPI) 57 L (>=60) BUN/Creatinine Ratio 11.60 L (12.00-20.00) Ratio Calcium 8.2 L (8.7-10.3) mg/dL
--- NOTE | 2024-04-15 14:26 | P.PN ---
Subjective patient is seen for follow-up for hyponatremia. Currently off of IV fluids and maintained on Lasix. Sodium is 130 today. Complaining of nausea this morning. patient had emesis 1. urine output 1.7 L. Currently with indwelling Handley catheter. T-max 100.1 today Objective - Vital Signs Vital signs: Vital Signs Temp 98.6 F 04/15/24 08:09 Pulse 85 04/15/24 08:09 Resp 17 04/15/24 08:09 BP 143/79 04/15/24 08:09 Pulse Ox 93 L 04/15/24 08:09 FiO2 Intake & Output 04/14/24 04/15/24 04/15/24 18:59 06:59 18:59 Output Total 1100 625 Balance -1100 -625 Output: Urine 1100 625 Other: Voiding Method Indwelling Catheter Indwelling Catheter - Exam Patient is awake, comfortable, no acute distress. Examination of the heart S1 and S2 Examination of the lungs bilateral breath sounds are heard Abdomen is dressed. 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 Hyponatremia, patient appears hypervolemic. Agree with discontinuation of normal saline. continue with IV Lasix 2. Diverticulitis with history of recent diverticular abscess, status post low anterior resection and takedown of splenic flexure on 04/12/2024 3. Anemia postop, rule out iron deficiency Plan: continue off of IV fluids. check iron profile Continue with current dose of Lasix Repeat labs in a.m.
--- NOTE | 2024-04-16 01:37 | P.PN ---
Subjective Progress Note Date: 04/15/24 Patient seen and evaluated at bedside. Patient admits to abdominal pain, distention, and decreased appetite. Objective - Vital Signs Vital signs: Vital Signs Temp 98.6 F 04/15/24 20:00 Pulse 92 04/15/24 20:00 Resp 16 04/15/24 20:49 BP 161/77 04/15/24 20:00 Pulse Ox 93 L 04/15/24 20:00 FiO2 Intake & Output 04/15/24 04/15/24 04/16/24 06:59 18:59 06:59 Output Total 625 825 Balance -625 825 Output: Urine 625 825 Other: Voiding Method Indwelling Catheter Indwelling Catheter Indwelling Catheter - Exam gen: nad cv: rrr pul: non labored breathing abd: soft, distended, tender to palpation, no guarding, surgical incisions c/d/i - Labs CBC & Chem 7: 04/14/24 04:57 04/15/24 04:17 Labs: Abnormal Lab Results - Last 24 Hours (Table) 04/15/24 Range/Units 04:17 Sodium 130 L (135-145) mmol/L Est GFR (CKD-EPI) 57 L (>=60) BUN/Creatinine Ratio 11.60 L (12.00-20.00) Ratio Calcium 8.2 L (8.7-10.3) mg/dL Assessment and Plan Assessment: 83 yo female s/p LAR possible ileus as patient has no appetite and feels bloated non toxic appearing pain control keep npo for now Time with Patient: Less than 30
[2024-04-16] MEDS: METOCLOPRAMIDE 5 MG/ML 2 ML VIAL IVP PRN (03:32)
[2024-04-16 10:26] LABS: BUN/Creat Ratio 14.44 Ratio (12.00-20.00); Calcium 8.5 mg/dL (8.7-10.3); Carbon Dioxide 22.8 mmol/L (21.6-31.8); Chloride 97 mmol/L (96-109); Glucose 66 mg/dL (70-110); Potassium 3.6 mmol/L (3.5-5.5); Sodium 134 mmol/L (135-145)
[2024-04-16 10:45] LABS: Basophils # (A) 0.02 X 10*3/uL (0.00-0.10); Basophils % (A) 0.2 %; Eosinophils # (A) 0.02 X 10*3/uL (0.04-0.35); Eosinophils % (A) 0.2 %; HCT 32.5 % (37.2-46.3); HGB 10.7 g/dL (12.0-15.0); Lymphocytes # (A) 1.14 X 10*3/uL (0.90-5.00); Lymphocytes % (A) 11.3 %; MCH 28.7 pg (27.0-32.0); MCHC 32.9 g/dL (32.0-37.0); MCV 87.1 FL (80.0-97.0); Mean Platelet Volume 9.8 FL (9.5-12.2); Monocytes # (A) 0.67 X 10*3/uL (0.20-1.00); Monocytes % (A) 6.7 %; NRBC Per 100 WBC 0 X 10*3/uL (0.00-0.01); Neutrophils # (A) 8.17 X 10*3/uL (1.80-7.70); Neutrophils % (A) 81.1 %; Platelet Count 375 X 10*3/uL (140-440); RBC 3.73 X 10*6/uL (4.10-5.20); RBC Morphology Normal (Normal); RDW 14.8 % (11.5-14.5); WBC 10.07 X 10*3/uL (4.50-10.00)
--- NOTE | 2024-04-16 14:00 | P.PN ---
Subjective Progress Note Date: 04/16/24 Subjective Patient states that she is feeling better today. She states that she still feels nauseous and denies passing gas or having bowel movement. 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 -Patient currently n.p.o. Intractable nausea and vomiting Suspect postop ileus Patient denies any bowel movements since surgery Will defer to general surgery Acute hypoxic respiratory failure Mild volume overload likely iatrogenic due to fluids given during surgery Bilateral pneumonia Chest x-ray yesterday showed small bilateral pleural effusions with left basilar airspace opacity which may represent atelectasis versus pneumonia Fevers have resolved Resume IV Rocephin and azithromycin COVID-19 negative patient encouraged to use incentive spirometry device Lasix 20 mg IV daily. Wean O2 as tolerated Pulmonology on board Hypotension - likely secondary to meds used during surgery Resolved Hypervolemic hyponatremia Improving with diuretics Resolved Nephrology on board Hypothyroidism -Continue daily medication regimen with levothyroxine 88 mcg daily. Dyslipidemia -Continue daily medication regimen with atorvastatin 20 mg nightly. Depression -Daily medication regimen with Lexapro 20 mg daily. CODE STATUS: Full code DVT prophylaxis: Heparin Anticipated discharge date: Pending clinical course Anticipated discharge place: Pending clinical course Objective - Vital Signs Vital signs: Vital Signs Temp 97.9 F 04/16/24 07:17 Pulse 91 04/16/24 07:17 Resp 17 04/16/24 07:17 BP 160/80 04/16/24 07:17 Pulse Ox 94 L 04/16/24 07:17 FiO2 Intake & Output 04/15/24 04/16/24 04/16/24 18:59 06:59 18:59 Output Total 712 208 9419 Balance -825 -250 -1000 Weight 89 kg Output: Urine 284 626 1110 Other: Voiding Method Indwelling Catheter Indwelling Catheter Indwelling Catheter - Labs CBC & Chem 7: 04/16/24 03:36 04/16/24 03:36 Labs: Abnormal Lab Results - Last 24 Hours (Table) 04/16/24 04/16/24 Range/Units 03:36 03:36 WBC 10.07 H (4.50-10.00) X 10*3/uL RBC 3.73 L (4.10-5.20) X 10*6/uL Hgb 10.7 L (12.0-15.0) g/dL Hct 32.5 L (37.2-46.3) % RDW 14.8 H (11.5-14.5) % Immature Gran # 0.05 H (0.00-0.04) X 10*3/uL Neutrophils # 8.17 H (1.80-7.70) X 10*3/uL Eosinophils # 0.02 L (0.04-0.35) X 10*3/uL Sodium 134 L (135-145) mmol/L Anion Gap 14.20 H (4.00-12.00) mmol/L Glucose 66 L (70-110) mg/dL Calcium 8.5 L (8.7-10.3) mg/dL
--- NOTE | 2024-04-16 14:01 | P.PN ---
Subjective Progress Note Date: 04/16/24 CHIEF COMPLAINT: Diverticulitis HISTORY OF PRESENT ILLNESS: The patient is a 83-year-old female status post low anterior resection for diverticulitis. She had moderate nausea over the weekend however improved today. "This is the best I felt." She is afraid to start eating due to her nausea prior. She denies abdominal pain. ROS: No bowel movements. No fevers or chills. No new chest pain. PHYSICAL EXAM: VITAL SIGNS: Reviewed CONSTITUTIONAL: Well developed and in no acute distress. EYES: Conjuctivae without sclera icterus. Extraocular movements grossly intact. HEAD, EARS, NOSE, THROAT: Moist buccal mucosa. Head is atraumatic, normocephalic. Hears conversational speech. No nasal drainage. RESPIRATORY: Non-labored respirations and equal bilateral excursions. CARDIOVASCULAR: Palpable 2+ radial pulses. ABDOMEN: Incision intact. MUSCULOSKELETAL: No gross deformity of the lower extremities noted. No clubbing. No cyanosis. SKIN: Good skin turgor. Well perfused. NEUROLOGIC: Cranial nerves II through XII grossly intact. No focal or lateralizing signs. PSYCH: Alert to self. : Handley clear yellow urine CLINICAL LABS: Reviewed. WBC mildly elevated but trending downward. Creatinine improving. ASSESSMENT: 1. Diverticulitis 2. Postoperative hypotension 3. Oligoria with acute kidney injury 4. Postop nausea vomiting PLAN: 1. Will restart liquid diet tomorrow 2. Adjust medications for nausea Objective - Vital Signs Vital signs: Vital Signs Temp 97.9 F 04/16/24 07:17 Pulse 91 04/16/24 07:17 Resp 17 04/16/24 07:17 BP 160/80 04/16/24 07:17 Pulse Ox 94 L 04/16/24 07:17 FiO2 Intake & Output 04/15/24 04/16/24 04/16/24 18:59 06:59 18:59 Output Total 838 504 6471 Balance -825 -250 -1000 Weight 89 kg Output: Urine 239 591 9414 Other: Voiding Method Indwelling Catheter Indwelling Catheter Indwelling Catheter - Labs CBC & Chem 7: 04/16/24 03:36 04/16/24 03:36 Labs: Abnormal Lab Results - Last 24 Hours (Table) 04/16/24 04/16/24 Range/Units 03:36 03:36 WBC 10.07 H (4.50-10.00) X 10*3/uL RBC 3.73 L (4.10-5.20) X 10*6/uL Hgb 10.7 L (12.0-15.0) g/dL Hct 32.5 L (37.2-46.3) % RDW 14.8 H (11.5-14.5) % Immature Gran # 0.05 H (0.00-0.04) X 10*3/uL Neutrophils # 8.17 H (1.80-7.70) X 10*3/uL Eosinophils # 0.02 L (0.04-0.35) X 10*3/uL Sodium 134 L (135-145) mmol/L Anion Gap 14.20 H (4.00-12.00) mmol/L Glucose 66 L (70-110) mg/dL Calcium 8.5 L (8.7-10.3) mg/dL
--- NOTE | 2024-04-16 14:14 | P.PN ---
Subjective patient is seen for follow-up for hyponatremia. Currently off of IV fluids and maintained on Lasix. Sodium is 134 today. no significant complaints today urine output 1.0 L. Currently with indwelling Handley catheter. Objective - Vital Signs Vital signs: Vital Signs Temp 97.9 F 04/16/24 07:17 Pulse 91 04/16/24 07:17 Resp 17 04/16/24 07:17 BP 160/80 04/16/24 07:17 Pulse Ox 94 L 04/16/24 07:17 FiO2 Intake & Output 04/15/24 04/16/24 04/16/24 18:59 06:59 18:59 Output Total 583 472 8852 Balance -825 -250 -1000 Weight 89 kg Output: Urine 390 439 2254 Other: Voiding Method Indwelling Catheter Indwelling Catheter Indwelling Catheter - Exam Patient is awake, comfortable, no acute distress. Examination of the heart S1 and S2 Examination of the lungs bilateral breath sounds are heard Abdomen is dressed. 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 Hyponatremia, patient appears hypervolemic. improved with diuresis. 2. Diverticulitis with history of recent diverticular abscess, status post low anterior resection and takedown of splenic flexure on 04/12/2024 3. Anemia postop, rule out iron deficiency Plan: continue off of IV fluids. check iron profile Continue with current dose of Lasix Repeat labs in a.m.
[2024-04-16] MEDS: ONDANSETRON 4 MG/2 ML VIAL IVP SCH (18:39)
[2024-04-17 08:33] LABS: % Iron Saturation 9.5 (12.00-45.00)
--- NOTE | 2024-04-17 14:35 | P.PN ---
Subjective patient is seen for follow-up for hyponatremia. Currently off of IV fluids and maintained on Lasix. Sodium is 134 yesterday. no significant complaints today urine output improved after flushing/adjustment of Handley catheter. Objective - Vital Signs Vital signs: Vital Signs Temp 98.1 F 04/17/24 13:24 Pulse 73 04/17/24 13:24 Resp 18 04/17/24 13:24 BP 172/91 04/17/24 13:24 Pulse Ox 95 04/17/24 13:24 FiO2 Intake & Output 04/16/24 04/17/24 04/17/24 18:59 06:59 18:59 Output Total 1800 475 Balance -1800 -475 Output: Urine 1800 475 Other: Voiding Method Indwelling Catheter Indwelling Catheter Indwelling Catheter - Exam Patient is awake, comfortable, no acute distress. Examination of the heart S1 and S2 Examination of the lungs bilateral breath sounds are heard Abdomen is dressed. 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 Hyponatremia, patient appears hypervolemic. improved with diuresis. 2. Diverticulitis with history of recent diverticular abscess, status post low anterior resection and takedown of splenic flexure on 04/12/2024 3. Anemia postop, iron deficiency noted. Plan: continue off of IV fluids. add IV iron Continue with current dose of Lasix Repeat labs in a.m.
--- NOTE | 2024-04-17 15:03 | P.PN ---
Subjective Progress Note Date: 04/17/24 Subjective Patient seen this morning. She was sitting in the chair. She had no acute complaints. 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 -Patient currently n.p.o. diet as per surgery Intractable nausea and vomiting Suspect postop ileus Patient denies any bowel movements since surgery Will defer to general surgery Acute hypoxic respiratory failure Mild volume overload likely iatrogenic due to fluids given during surgery Bilateral pneumonia Fevers have resolved Resume IV Rocephin and azithromycin and will complete a 5-day course. Today is day 3 out of 5 patient encouraged to use incentive spirometry device Lasix 20 mg IV daily. Wean O2 as tolerated Pulmonology signed off Hypotension - likely secondary to meds used during surgery Resolved Hypervolemic hyponatremia Improving with diuretics Resolved Nephrology on board Hypothyroidism -Continue daily medication regimen with levothyroxine 88 mcg daily. Dyslipidemia -Continue daily medication regimen with atorvastatin 20 mg nightly. Depression -Daily medication regimen with Lexapro 20 mg daily. CODE STATUS: Full code DVT prophylaxis: Heparin Anticipated discharge date: Pending clinical course Anticipated discharge place: Pending clinical course Objective - Vital Signs Vital signs: Vital Signs Temp 98.1 F 04/17/24 13:24 Pulse 73 04/17/24 13:24 Resp 18 04/17/24 13:24 BP 172/91 04/17/24 13:24 Pulse Ox 95 04/17/24 13:24 FiO2 Intake & Output 04/16/24 04/17/24 04/17/24 18:59 06:59 18:59 Output Total 1800 475 Balance -1800 -475 Output: Urine 1800 475 Other: Voiding Method Indwelling Catheter Indwelling Catheter Indwelling Catheter - Labs CBC & Chem 7: 04/16/24 03:36 04/16/24 03:36 Labs: Abnormal Lab Results - Last 24 Hours (Table) 04/16/24 Range/Units 03:36 Iron 17 L (50-170) UG/DL TIBC 179 L (228-460) UG/DL % Saturation 9.50 L (12.00-45.00) Transferrin 128.0 L (204.0-354.0) mg/dL
--- NOTE | 2024-04-17 15:24 | P.PN ---
Subjective Progress Note Date: 04/17/24 CHIEF COMPLAINT: Diverticulitis HISTORY OF PRESENT ILLNESS: Patient postop day# 5 status post lower anterior resection for diverticulitis. Patient's pain is controlled. She still had no bowel activity. Patient's nausea improved. Denies any vomiting. She was working with physical therapy this morning. Afebrile. WBC 10.07 hemoglobin 10.7 platelets 375 iron low at 17. Nephrology has started patient on IV iron. Sodium level improving and at 134 PHYSICAL EXAM: VITAL SIGNS: Reviewed. GENERAL: Well-developed in no acute distress. ABDOMEN: Soft. Nondistended. Prevena wound VAC intact NEUROLOGIC: Alert and oriented. Cranial nerves II through XII grossly intact. ASSESSMENT: 1. Diverticulitis status post lower anterior resection 2. Postoperative hypotension. Improved with fluid resuscitation 3. Iron deficiency anemia 4. Hyponatremia PLAN: -Continue clear liquid diet -Encourage patient to ambulate -Continue antibiotics -Patient currently receiving IV Lasix -DVT prophylaxis subcu heparin and GI prophylaxis Pepcid Physician Oncology Nurse Navigator note has been reviewed by physician. Signing provider agrees with the documented findings, assessment, and plan of care. Objective - Vital Signs Vital signs: Vital Signs Temp 98.1 F 04/17/24 13:24 Pulse 73 04/17/24 13:24 Resp 18 04/17/24 13:24 BP 172/91 04/17/24 13:24 Pulse Ox 95 04/17/24 13:24 FiO2 Intake & Output 04/16/24 04/17/24 04/17/24 18:59 06:59 18:59 Output Total 1800 475 Balance -1800 -475 Output: Urine 1800 475 Other: Voiding Method Indwelling Catheter Indwelling Catheter Indwelling Catheter - Labs CBC & Chem 7: 04/16/24 03:36 04/16/24 03:36 Labs: Abnormal Lab Results - Last 24 Hours (Table) 04/16/24 Range/Units 03:36 Iron 17 L (50-170) UG/DL TIBC 179 L (228-460) UG/DL % Saturation 9.50 L (12.00-45.00) Transferrin 128.0 L (204.0-354.0) mg/dL
[2024-04-17] MEDS: SODIUM FERRIC GLUCONAT-SUCROSE 125 MG in SODIUM CHLORIDE 0.9% 100 ML IVPB SCH (17:28)
[2024-04-17] MEDS: CALCIUM CARBONATE 500 MG CHEWABLE PO STA (22:16)
[2024-04-17] MEDS: TRIMETHOBENZAMIDE 100 MG/ML 2 ML VIAL IM STA (23:58)
[2024-04-18 11:43] LABS: African American GFR (CKD) 90 (>60 ml/min/1.73 sqM); Anion Gap 6 mmol/L; Blood Urea Nitrogen 18 mg/dL (7-17); Calcium 8.6 mg/dL (8.4-10.2); Carbon Dioxide 28 mmol/L (22-30); Chloride 97 mmol/L (98-107); Glucose 98 mg/dL (74-99); Non-African American GFR(CKD) 78 (>60 ml/min/1.73 sqM); Potassium 3.1 mmol/L (3.5-5.1); Sodium 131 mmol/L (137-145)
--- NOTE | 2024-04-18 12:41 | P.PN ---
Subjective Progress Note Date: 04/18/24 Subjective: Patient seen and examined at bedside. No acute events overnight. Denies any significant abdominal pain. Passing gas. No bowel movements yet. Got out of bed into the chair today. Denies any respiratory complaints. Handley catheter in place. Pertinent positives and negatives as discussed above, a complete review of systems was performed and all other systems are negative. Vitals Signs Reviewed. General: Nontoxic, no distress, appears at stated age Derm: Warm, dry, wound VAC in place Head: Atraumatic, normocephalic, symmetric Eyes: EOMI, no lid lag, anicteric sclera Mouth: No lip lesion, mucus membranes moist Cardiovascular: S1S2 reg, no murmur Lungs: CTA bilateral, no rhonchi, no rales, no accessory muscle use Abdominal: Soft, nontender to palpation, no guarding, no appreciable organomegaly Ext: No gross muscle atrophy, no edema, no contractures Neuro: CN II-XI grossly intact, no focal neuro deficits Psych: Alert, oriented, appropriate affect Data Reviewed Today: Pertinent Labs: Sodium 131, potassium 3.1, creatinine 0.73 Imaging: No new imaging Assessment and Plan: Diverticulitis with hx of recent diverticular abscess Postop ileus, improving Nausea vomiting, resolved Postoperative hypotension, resolved -She is s/p Low anterior resection by surgery -For pain control, patient on Tylenol as needed, IV Dilaudid as needed, monitor for sedation -On full liquid diet -Surgery note reviewed, continue conservative therapy Acute hypoxic respiratory failure, resolving Mild volume overload likely iatrogenic due to fluids given during surgery Bilateral pneumonia Fevers have resolved -Resume IV Rocephin and azithromycin and will complete a 5-day course. Today is day 4 out of 5 -patient encouraged to use incentive spirometry device -Lasix 20 mg IV daily. Monitor renal function, and electrolytes -Wean O2 as tolerated -Pulmonology signed off Hypervolemic hyponatremia -Stable -Nephrology on board Hypokalemia -40 mill equivalent IV potassium given -Repeat BMP and magnesium tomorrow Hypothyroidism -Continue daily medication regimen with levothyroxine 88 mcg daily. Dyslipidemia -Continue daily medication regimen with atorvastatin 20 mg nightly. Depression -Daily medication regimen with Lexapro 20 mg daily. Iron deficiency anemia -Continue IV iron 125 mg daily Thank you for allowing us to participate in the care of this pleasant patient. Do not hesitate to contact us with questions. Someone can be reached from the [facility] hospitalist group all hours of the day at [phone] or via perfect serve. Objective - Vital Signs Vital signs: Vital Signs Temp 97.6 F 04/18/24 07:12 Pulse 78 04/18/24 07:12 Resp 16 04/18/24 07:12 BP 157/80 04/18/24 07:12 Pulse Ox 92 L 04/18/24 07:12 FiO2 Intake & Output 04/17/24 04/18/24 04/18/24 18:59 06:59 18:59 Output Total 650 350 Balance -650 -350 Weight 89 kg Output: Urine 650 350 Other: Voiding Method Indwelling Catheter Indwelling Catheter Indwelling Catheter - Labs CBC & Chem 7: 04/16/24 03:36 04/18/24 10:58 Labs: Abnormal Lab Results - Last 24 Hours (Table) 04/18/24 Range/Units 10:58 Sodium 131 L (137-145) mmol/L Potassium 3.1 L (3.5-5.1) mmol/L Chloride 97 L (98-107) mmol/L BUN 18 H (7-17) mg/dL
--- NOTE | 2024-04-18 13:30 | P.PN ---
Subjective Progress Note Date: 04/18/24 CHIEF COMPLAINT: Diverticulitis HISTORY OF PRESENT ILLNESS: Patient postop day# 6 status post lower anterior resection for diverticulitis. Patient reports having flatus. Pain controlled. Denies any nausea or vomiting. Afebrile. Potassium 3.1 and being replaced PHYSICAL EXAM: VITAL SIGNS: Reviewed. GENERAL: Well-developed in no acute distress. ABDOMEN: Soft. Nondistended. Prevena wound VAC intact NEUROLOGIC: Alert and oriented. Cranial nerves II through XII grossly intact. ASSESSMENT: 1. Diverticulitis status post lower anterior resection 2. Postoperative hypotension. Improved with fluid resuscitation 3. Iron deficiency anemia 4. Hyponatremia 5. Hypokalemia PLAN: -Advance diet to full liquids -Encourage patient to increase activity level -Continue antibiotics -DVT prophylaxis subcu heparin and GI prophylaxis Pepcid Physician Prawn Trawler Hand note has been reviewed by physician. Signing provider agrees with the documented findings, assessment, and plan of care. Objective - Vital Signs Vital signs: Vital Signs Temp 97.6 F 04/18/24 07:12 Pulse 78 04/18/24 07:12 Resp 16 04/18/24 07:12 BP 157/80 04/18/24 07:12 Pulse Ox 92 L 04/18/24 07:12 FiO2 Intake & Output 04/17/24 04/18/24 04/18/24 18:59 06:59 18:59 Output Total 650 350 Balance -650 -350 Weight 89 kg Output: Urine 650 350 Other: Voiding Method Indwelling Catheter Indwelling Catheter Indwelling Catheter - Labs CBC & Chem 7: 04/16/24 03:36 04/18/24 10:58 Labs: Abnormal Lab Results - Last 24 Hours (Table) 04/18/24 Range/Units 10:58 Sodium 131 L (137-145) mmol/L Potassium 3.1 L (3.5-5.1) mmol/L Chloride 97 L (98-107) mmol/L BUN 18 H (7-17) mg/dL
--- NOTE | 2024-04-18 13:36 | P.PN ---
Subjective patient is seen for follow-up for hyponatremia. Currently off of IV fluids and maintained on Lasix. Sodium is 131 today . no significant complaints today urine output improved after flushing/adjustment of Handley catheter. Objective - Vital Signs Vital signs: Vital Signs Temp 97.6 F 04/18/24 07:12 Pulse 78 04/18/24 07:12 Resp 16 04/18/24 07:12 BP 157/80 04/18/24 07:12 Pulse Ox 92 L 04/18/24 07:12 FiO2 Intake & Output 04/17/24 04/18/24 04/18/24 18:59 06:59 18:59 Output Total 650 350 Balance -650 -350 Weight 89 kg Output: Urine 650 350 Other: Voiding Method Indwelling Catheter Indwelling Catheter Indwelling Catheter - Exam Patient is awake, comfortable, no acute distress. Examination of the heart S1 and S2 Examination of the lungs bilateral breath sounds are heard Abdomen is dressed. 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 Hyponatremia, patient appears hypervolemic. improved with diuresis. 2. Diverticulitis with history of recent diverticular abscess, status post low anterior resection and takedown of splenic flexure on 04/12/2024 3. Anemia postop, iron deficiency noted. Maintained on IV iron Plan: increase Lasix. Continue IV iron Continue with current dose of Lasix Repeat labs in a.m.
[2024-04-18] MEDS: POTASSIUM CHLORIDE 10 MEQ in WATER FOR INJECTION 1 100ML.BAG IVPB SCH (15:32)
[2024-04-18] MEDS: FUROSEMIDE 10 MG/ML 2 ML VIAL IV ONE (15:32)
[2024-04-18] MEDS: POTASSIUM CHLORIDE ER 20 MEQ TAB.ER PO STA (17:42)
[2024-04-19 08:40] LABS: Basophils # (A) 0.06 X 10*3/uL (0.00-0.10); Basophils % (A) 0.6 %; Eosinophils % (A) 6.9 %; HCT 30.1 % (37.2-46.3); Lymphocytes # (A) 1.93 X 10*3/uL (0.90-5.00); MCH 28.7 pg (27.0-32.0); MCHC 33.2 g/dL (32.0-37.0); MCV 86.5 FL (80.0-97.0); Mean Platelet Volume 9.7 FL (9.5-12.2); Monocytes # (A) 1.11 X 10*3/uL (0.20-1.00); Monocytes % (A) 10.9 %; NRBC Per 100 WBC 0 X 10*3/uL (0.00-0.01); Neutrophils % (A) 60.8 %; Platelet Count 432 X 10*3/uL (140-440); RBC 3.48 X 10*6/uL (4.10-5.20); WBC 10.18 X 10*3/uL (4.50-10.00)
[2024-04-19] MEDS: FUROSEMIDE 10 MG/ML 4 ML VIAL IV SCH (08:56)
[2024-04-19 08:57] LABS: BUN/Creat Ratio 19.12 Ratio (12.00-20.00); Blood Urea Nitrogen 15.3 mg/dL (9.0-27.0); Calcium 8.1 mg/dL (8.7-10.3); Carbon Dioxide 28.9 mmol/L (21.6-31.8); Chloride 98 mmol/L (96-109); Glucose 88 mg/dL (70-110); Magnesium 1.7 mg/dL (1.5-2.4); Potassium 3.7 mmol/L (3.5-5.5); Sodium 135 mmol/L (135-145)
--- NOTE | 2024-04-19 11:41 | P.PN ---
Subjective Progress Note Date: 04/19/24 Subjective: Patient seen and examined at bedside. No acute events overnight. Denies any significant abdominal pain. Passing gas. No bowel movements yet. Got out of bed into the chair today. Denies any respiratory complaints. Handley catheter in place. Pertinent positives and negatives as discussed above, a complete review of systems was performed and all other systems are negative. Vitals Signs Reviewed. General: Nontoxic, no distress, appears at stated age Derm: Warm, dry, wound VAC in place Head: Atraumatic, normocephalic, symmetric Eyes: EOMI, no lid lag, anicteric sclera Mouth: No lip lesion, mucus membranes moist Cardiovascular: S1S2 reg, no murmur Lungs: CTA bilateral, no rhonchi, no rales, no accessory muscle use Abdominal: Soft, nontender to palpation, no guarding, no appreciable organomegaly Ext: No gross muscle atrophy, no edema, no contractures Neuro: CN II-XI grossly intact, no focal neuro deficits Psych: Alert, oriented, appropriate affect Data Reviewed Today: Pertinent Labs: WBC 10.18, hemoglobin 10, sodium 135, potassium 3.7, magnesium 1.7 Imaging: No new imaging Assessment and Plan: Diverticulitis with hx of recent diverticular abscess Postop ileus, improving Nausea vomiting, resolved Postoperative hypotension, resolved -She is s/p Low anterior resection by surgery -For pain control, patient on Tylenol as needed, IV Dilaudid as needed, monitor for sedation -On full liquid diet -Surgery following Acute hypoxic respiratory failure, resolving Bilateral pneumonia - IV Rocephin and azithromycin and will complete a 5-day course. Today is day 5 out of 5 -patient encouraged to use incentive spirometry device -Wean O2 as tolerated -Pulmonology signed off Hypervolemic hyponatremia, resolved Mild volume overload likely iatrogenic due to fluids given during surgery - Nephrology following, IV Lasix was increased to 40 mg daily yesterday, monitor electrolytes and renal function Hypokalemia, resolved Hypothyroidism -Continue daily medication regimen with levothyroxine 88 mcg daily. Dyslipidemia -Continue daily medication regimen with atorvastatin 20 mg nightly. Depression -Daily medication regimen with Lexapro 20 mg daily. Iron deficiency anemia -Continue IV iron 125 mg daily Thank you for allowing us to participate in the care of this pleasant patient. Do not hesitate to contact us with questions. Someone can be reached from the [facility] hospitalist group all hours of the day at [phone] or via perfect serve. Objective - Vital Signs Vital signs: Vital Signs Temp 98.0 F 04/19/24 07:10 Pulse 82 04/19/24 09:54 Resp 18 04/19/24 09:54 BP 140/82 04/19/24 07:10 Pulse Ox 96 04/19/24 07:10 FiO2 Intake & Output 04/18/24 04/19/24 04/19/24 18:59 06:59 18:59 Intake Total 240 Output Total 2400 400 950 Balance -2400 -400 -710 Weight 85.5 kg Intake: Oral 240 Output: Urine 2400 400 950 Uretheral (Handley) 100 Other: Voiding Method Indwelling Catheter Indwelling Catheter Toilet # Voids 1 - Labs CBC & Chem 7: 04/19/24 03:19 04/19/24 03:19 Labs: Abnormal Lab Results - Last 24 Hours (Table) 04/18/24 04/19/24 04/19/24 Range/Units 10:58 03:19 03:19 WBC 10.18 H (4.50-10.00) X 10*3/uL RBC 3.48 L (4.10-5.20) X 10*6/uL Hgb 10.0 L (12.0-15.0) g/dL Hct 30.1 L (37.2-46.3) % RDW 15.0 H (11.5-14.5) % Immature Gran # 0.18 H (0.00-0.04) X 10*3/uL Monocytes # 1.11 H (0.20-1.00) X 10*3/uL Eosinophils # 0.70 H (0.04-0.35) X 10*3/uL Sodium 131 L (137-145) mmol/L Potassium 3.1 L (3.5-5.1) mmol/L Chloride 97 L (98-107) mmol/L BUN 18 H (7-17) mg/dL Calcium 8.1 L (8.7-10.3) mg/dL
[2024-04-19 12:10] VITALS: BMI 32.3
--- NOTE | 2024-04-19 12:57 | P.PN ---
Subjective patient is seen for follow-up for hyponatremia. Currently off of IV fluids and maintained on Lasix. Sodium is 135 today . no significant complaints today Handley catheter has been discontinued. Objective - Vital Signs Vital signs: Vital Signs Temp 98.0 F 04/19/24 07:10 Pulse 82 04/19/24 09:54 Resp 18 04/19/24 09:54 BP 140/82 04/19/24 07:10 Pulse Ox 96 04/19/24 07:10 FiO2 Intake & Output 04/18/24 04/19/24 04/19/24 18:59 06:59 18:59 Intake Total 240 Output Total 2400 400 950 Balance -2400 -400 -710 Weight 85.5 kg 85.5 kg Intake: Oral 240 Output: Urine 2400 400 950 Uretheral (Handley) 100 Other: Voiding Method Indwelling Catheter Indwelling Catheter Toilet # Voids 1 - Exam Patient is awake, comfortable, no acute distress. Examination of the heart S1 and S2 Examination of the lungs bilateral breath sounds are heard Abdomen is dressed. 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 Hyponatremia, patient appears hypervolemic. improved with diuresis. 2. Diverticulitis with history of recent diverticular abscess, status post low anterior resection and takedown of splenic flexure on 04/12/2024 3. Anemia postop, iron deficiency noted. Maintained on IV iron Plan: DC IV iron after today's dose Continue with current dose of Lasix Repeat labs in a.m.
--- NOTE | 2024-04-19 15:48 | P.PN ---
Subjective Progress Note Date: 04/19/24 CHIEF COMPLAINT: Diverticulitis HISTORY OF PRESENT ILLNESS: Patient postop day# 7 status post lower anterior resection for diverticulitis. Patient is having flatus. She reports her pain is controlled. She has been up to ambulate in the room. Denies any nausea or vomiting. Patient requesting advancement of diet. WBC 10.18 Hgb 10.0 sodium 135 potassium 3.7. Nephrology has patient on IV Lasix. PHYSICAL EXAM: VITAL SIGNS: Reviewed. GENERAL: Well-developed in no acute distress. ABDOMEN: Soft. Nondistended. Prevena wound VAC intact NEUROLOGIC: Alert and oriented. Cranial nerves II through XII grossly intact. ASSESSMENT: 1. Diverticulitis status post lower anterior resection 2. Postoperative hypotension. Improved with fluid resuscitation 3. Iron deficiency anemia 4. Hyponatremia improved 5. Hypokalemia improved PLAN: -Advance diet to regular -Encourage patient to increase activity level -Anticipate possible discharge tomorrow if cleared by consultants -DVT prophylaxis subcu heparin and GI prophylaxis Pepcid Physician Emblem Cutter note has been reviewed by physician. Signing provider agrees with the documented findings, assessment, and plan of care. Objective - Vital Signs Vital signs: Vital Signs Temp 97.5 F L 04/19/24 13:41 Pulse 95 04/19/24 13:41 Resp 20 04/19/24 13:41 BP 125/66 04/19/24 13:41 Pulse Ox 88 L 04/19/24 13:41 FiO2 Intake & Output 04/18/24 04/19/24 04/19/24 18:59 06:59 18:59 Intake Total 240 Output Total 2400 400 950 Balance -2400 -400 -710 Weight 85.5 kg 85.5 kg Intake: Oral 240 Output: Urine 2400 400 950 Uretheral (Handley) 100 Other: Voiding Method Indwelling Catheter Indwelling Catheter Toilet # Voids 1 - Labs CBC & Chem 7: 04/19/24 03:19 04/19/24 03:19 Labs: Abnormal Lab Results - Last 24 Hours (Table) 04/19/24 04/19/24 Range/Units 03:19 03:19 WBC 10.18 H (4.50-10.00) X 10*3/uL RBC 3.48 L (4.10-5.20) X 10*6/uL Hgb 10.0 L (12.0-15.0) g/dL Hct 30.1 L (37.2-46.3) % RDW 15.0 H (11.5-14.5) % Immature Gran # 0.18 H (0.00-0.04) X 10*3/uL Monocytes # 1.11 H (0.20-1.00) X 10*3/uL Eosinophils # 0.70 H (0.04-0.35) X 10*3/uL Calcium 8.1 L (8.7-10.3) mg/dL
[2024-04-20 08:19] VITALS: RESP 16
[2024-04-20 09:14] LABS: BUN/Creat Ratio 15.75 Ratio (12.00-20.00); Blood Urea Nitrogen 12.6 mg/dL (9.0-27.0); Calcium 8.2 mg/dL (8.7-10.3); Carbon Dioxide 30.2 mmol/L (21.6-31.8); Chloride 97 mmol/L (96-109); Glucose 82 mg/dL (70-110); Magnesium 1.5 mg/dL (1.5-2.4); Potassium 3.4 mmol/L (3.5-5.5); Sodium 135 mmol/L (135-145)
--- NOTE | 2024-04-20 14:07 | P.PN ---
Subjective Progress Note Date: 04/20/24 Hospital course: Patient is a very pleasant 83-year-old female with a past medical history of CAD with stent, hyperlipidemia, hypothyroidism, diverticulosis. She presented to the hospital on 04/12/2024 for a planned lower anterior resection and takedown of splenic flexure secondary to diverticulitis. She was admitted under general surgery team and we were consulted for medical management throughout her hospitalization. Physical exam: Patient was seen and fully evaluated at bedside this morning. She is postoperative day 8. She was sitting up in chair at bedside visiting with her family members at time of assessment. Patient reports she is feeling well today and is tolerating oral intake. She denies having any pain or complaints reports feeling a little fullness and states only able to eat a little bit at a time because she gets full quickly and loses her appetite but otherwise denies having any pain, nausea, or vomiting. Patient reports bowel movement yesterday and again today in which she reports was normal. Patient denies having any chest pain, palpitations, shortness of breath, or any other complaints at this time. Vital signs reviewed and stable. General: Nontoxic, no distress and appears stated age. Derm: Skin warm and dry, normal coloration for ethnicity. Head: Atraumatic, normocephalic and symmetric. Eyes: EOMs intact, no lid lag, and anicteric sclera Mouth: no lip lesions, mucus membranes moist Cardiovascular: regular rate and rhythm with normal S1S2, systolic murmur, positive posterior tibial pulses bilaterally, and cap refill < 2 seconds. Lungs: Respirations even, regular, and unlabored on room air. Lungs CTA bilaterally, no rhonchi, no rales, no wheezing, and no accessory muscle usage. Abdominal: soft, postoperative dressing and wound VAC in place. Ext: ROM intact. No gross muscle atrophy, 1+ BLE edema, no contractures Neuro: Speech clear, face symmetrical and CN II-XII grossly intact with no noted focal neuro deficits Psych: Alert and oriented to person, place, time, and situation. Appropriate and pleasant affect. Assessment and Plan of Care: Postoperative ileus, resolved Postoperative nausea and vomiting, resolved Postoperative hypotension, resolved -Patient reports normal bowel movements yesterday and again today. -Tolerating low fiber diet. -Continue symptomatic care and pain management with Tylenol as needed for mild to moderate pain and Dilaudid if needed for severe pain. -General surgery following, discussed plan of care with general surgery PA, likely plan for discharge within the next 24 hours. Hyponatremia, hypovolemic hyponatremia due to fluid volume overload -Resolved with IV diuresis. Patient to be discharged home on Lasix 40 mg daily with repeat BMP and magnesium in 3 days postdischarge. Diverticulitis status post lower anterior resection and takedown of splenic flexure on 04/12/2024 -Management by general surgery team including DVT prophylaxis, pain management, postoperative dressing/wound VAC management, advancement of diet, and PT/OT. -DVT prophylaxis currently with heparin Hypokalemia Potassium 3.4 orders placed for K-Dur 40 mEq p.o. x 1 dose. Hypomagnesemia Magnesium 1.5. Orders placed for mag sulfate 2 g IVPB x 1 dose. Hypothyroidism Continue daily medication regimen with levothyroxine 88 mcg daily. Iron deficiency anemia Patient on IV Ferrlecit, plan to discharge home on oral ferrous sulfate 325 mg daily. Acute hypoxic respiratory failure, resolved Bilateral pneumonia -Patient completed course of IV antibiotics with azithromycin and Rocephin. Data and Imaging reviewed: Vital signs reviewed. Blood pressure 134/64, heart rate 80, respiratory rate 16, temp 98.3 F, and SpO2 of 92% on room air. Morning labs reviewed. BMP showing resolution of hyponatremia with sodium of 135 and mild hypokalemia with potassium of 3.4. Magnesium also low at 1.5. Patient is medically optimized and cleared from medical perspective once cleared by primary admitting general surgery team for discharge. Thank you for allowing us to participate in the care of this pleasant patient. Do not hesitate to contact us with questions. Someone can be reached from the [facility] hospitalist group all hours of the day at [phone] or via Myer. Patient was seen independently by Nurse Pracitioner. This document was prepared using [employer] dictation software. Please allow for errors in metal building assembler, while rare they do occur. Lopez Mcknight NP rendered care for this patient independently, reviewed the findings and plan as documented in the note above. I did not physically speak with or examine the patient on this date Objective - Vital Signs Vital signs: Vital Signs Temp 98.3 F 04/20/24 07:42 Pulse 80 04/20/24 07:42 Resp 16 04/20/24 07:42 BP 134/64 04/20/24 07:42 Pulse Ox 96 04/20/24 07:42 FiO2 Intake & Output 04/19/24 04/20/24 04/20/24 18:59 06:59 18:59 Intake Total 480 Output Total 950 Balance -470 Weight 85.5 kg 87 kg Intake: Oral 480 Output: Urine 950 Other: Voiding Method Toilet Indwelling Catheter # Voids 1 3 - Labs CBC & Chem 7: 04/19/24 03:19 04/20/24 04:10 Labs: Abnormal Lab Results - Last 24 Hours (Table) 04/19/24 04/19/24 Range/Units 03:19 03:19 WBC 10.18 H (4.50-10.00) X 10*3/uL RBC 3.48 L (4.10-5.20) X 10*6/uL Hgb 10.0 L (12.0-15.0) g/dL Hct 30.1 L (37.2-46.3) % RDW 15.0 H (11.5-14.5) % Immature Gran # 0.18 H (0.00-0.04) X 10*3/uL Monocytes # 1.11 H (0.20-1.00) X 10*3/uL Eosinophils # 0.70 H (0.04-0.35) X 10*3/uL Calcium 8.1 L (8.7-10.3) mg/dL
[2024-04-20 14:40] VITALS: BP 117/75; PULSE 79; TEMP 97.7
--- NOTE | 2024-04-20 15:36 | P.DS ---
Providers Expected date of discharge: 04/20/24 Attending physician: Mata Gill Consults: 04/12/24 10:40 Consult Physician Routine Consulting Provider: Salas Coley Consult Reason/Comments: Medical management Do you want consulting provider notified?: Yes 04/13/24 14:25 Consult Physician Routine Consulting Provider: Xochilt Bynum Consult Reason/Comments: low urine output Do you want consulting provider notified?: Yes Primary care physician: Elijah Silva MD Hospital Course: Discharge diagnosis 1. Diverticulitis status post lower anterior resection 2. Postoperative hypotension. Improved with fluid resuscitation 3. Iron deficiency anemia 4. Hyponatremia improved 5. Hypokalemia receiving supplement before discharge 6. Hypomagnesemia receiving supplement before discharge Hospital course This is a 83-year-old female with a history of diverticulitis. She is status post a lower anterior resection. Patient did have postoperative hypotension and required to be in the ICU for short period of time. Blood pressure did improve with IV fluid resuscitation. Patient's pain is controlled. She is having bowel movements. She is tolerating diet. She is afebrile. She has been up and ambulating. She is urinating without difficulty. She has been cleared by consulting physicians for discharge. Please refer to chart for any further details. Physician Headrig Sawyer note has been reviewed by physician. Signing provider agrees with the documented findings, assessment, and plan of care. Patient Condition at Discharge: Stable Plan - Discharge Summary Discharge Rx Participant: No New Discharge Prescriptions: New Famotidine [Pepcid] 20 mg PO DAILY 30 Days #30 tablet Ferrous Sulfate [Iron (65 MG Elemental)] 325 mg PO DAILY 30 Days #30 tab Acetaminophen Tab [Tylenol Tab] 650 mg PO Q4H PRN #30 tablet PRN Reason: Pain Furosemide [Lasix] 40 mg PO DAILY 30 Days #30 tablet Magnesium Oxide [Magox 400] 400 mg PO DAILY 30 Days #30 tab Continue Escitalopram [Lexapro] 20 mg PO QAM Potassium Chloride ER [K-Dur 20] 20 meq PO PC-BRKFST Levothyroxine Sodium [Synthroid] 88 mcg PO QAM Lidocaine [Aspercreme Patch] 1 patch TRANSDERM DIRECTED PRN PRN Reason: Pain Discontinued Acetaminophen Tab [Tylenol] 500 mg PO Q6H PRN PRN Reason: Pain Furosemide [Lasix] 20 mg PO QAM Discharge Medication List Escitalopram [Lexapro] 20 mg PO QAM 04/17/19 [History] Levothyroxine Sodium [Synthroid] 88 mcg PO QAM 02/15/24 [History] Potassium Chloride ER [K-Dur 20] 20 meq PO PC-BRKFST 02/15/24 [History] Lidocaine [Aspercreme Patch] 1 patch TRANSDERM DIRECTED PRN 03/21/24 [History] Acetaminophen Tab [Tylenol Tab] 650 mg PO Q4H PRN #30 tablet 04/20/24 [Rx] Famotidine [Pepcid] 20 mg PO DAILY 30 Days #30 tablet 04/20/24 [Rx] Ferrous Sulfate [Iron (65 MG Elemental)] 325 mg PO DAILY 30 Days #30 tab 04/20/24 [Rx] Furosemide [Lasix] 40 mg PO DAILY 30 Days #30 tablet 04/20/24 [Rx] Magnesium Oxide [Magox 400] 400 mg PO DAILY 30 Days #30 tab 04/20/24 [Rx] Follow up Appointment(s)/Referral(s): Xochilt Bynum MD [STAFF PHYSICIAN] - 1 Week Elijah Silva MD [Primary Care Provider] - 1 Week Mata Gill MD [STAFF PHYSICIAN] - 1 Week Ambulatory/Diagnostic Orders: Basic Metabolic Panel [LAB.AMB] Time Frame: 3 Days, Location: None Selected Magnesium [LAB.AMB] Time Frame: 3 Days, Location: None Selected Patient Instructions/Handouts: Diverticulosis (DC), Diverticulitis Diet (DC) Activity/Diet/Wound Care/Special Instructions: Activity: As tolerated. Take breaks as needed. Diet: Follow a low fiber diet Special Instructions: Take all of your medications as directed and remember to keep all of your doctor's appointments and follow-up as needed. Thank you for allowing us to participate in your care, it was truly a pleasure having you for our patient!!! No lifting over 10 pounds Shower daily. No soaking or tub baths for 2 weeks Very light activity until you are reevaluated at your follow up appointment with your surgeon . Discharge Disposition: HOME SELF-CARE
[2024-04-20] MEDS: MAGNESIUM SULFATE-D5W PMX 1 GM in DEXTROSE/WATER 1 100ML.BAG IVPB SCH (16:00)
[2024-04-20] MEDS: POTASSIUM CHLORIDE ER 20 MEQ TAB.ER PO STA (16:00)
--- NOTE | 2024-04-20 17:15 | P.PN ---
Subjective patient is seen for follow-up for hyponatremia. Currently off of IV fluids and maintained on Lasix. Sodium is 135 today . no significant complaints today Handley catheter has been discontinued. Objective - Vital Signs Vital signs: Vital Signs Temp 97.7 F 04/20/24 13:58 Pulse 79 04/20/24 13:58 Resp 16 04/20/24 13:58 BP 117/75 04/20/24 13:58 Pulse Ox 92 L 04/20/24 13:58 FiO2 Intake & Output 04/19/24 04/20/24 04/20/24 18:59 06:59 18:59 Intake Total 480 100 Output Total 950 Balance -470 100 Weight 85.5 kg 87 kg Intake: Intake, IV Titration 100 Amount Sodium Ferric Gluconat- 100 Sucrose 125 mg In Sodium Chloride 0.9% 100 ml @ 100 mls/hr IVPB DAILY [facility] Rx#:[id number] Oral 480 Output: Urine 950 Other: Voiding Method Toilet Indwelling Catheter # Voids 1 3 - Exam Patient is awake, comfortable, no acute distress. Examination of the heart S1 and S2 Examination of the lungs bilateral breath sounds are heard Abdomen is dressed. 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 Hyponatremia, patient appears hypervolemic. improved with diuresis. 2. Diverticulitis with history of recent diverticular abscess, status post low anterior resection and takedown of splenic flexure on 04/12/2024 3. Anemia postop, iron deficiency noted. Status post IV iron Plan: Okay to discharge from nephrology standpoint Continue with current dose of Lasix Repeat labs as outpatient in 1 to 2 days.
[2024-04-21] MEDS ORDERED: FAMOTIDINE 20 MG/2 ML VIAL IV SCH (09:00)
== END 2024-04-20 19:07 | disposition home or self-care (01) ==
LOC: OR 07:38 → 2SICU 10:33 → 4SSUR 04-13 11:34 → OR 04-20 19:07
PROVIDERS: ATTEND Surgery
DX: K57.32 Diverticulitis of large intestine without perforation or abscess without bleeding
CPT/HCPCS: 80048; 83735; 85025; 85027; 86850; 86900; 86901; 86920; 88307; 94760

== ENCOUNTER → 2025-03-05 | Outpatient (CLI) | payer MEDICARE, OTHER ==
[2025-03-05 12:12] LABS: INR 0.9 (<1.2); Partial Thromboplastin Time 22.6 sec (22.0-30.0); Prothrombin Time 10.2 sec (10.0-12.5)
[2025-03-05 16:27] LABS: HCT 39.4 % (37.2-46.3); HGB 12.7 g/dL (12.0-15.0); MCH 29.8 pg (27.0-32.0); MCHC 32.2 g/dL (32.0-37.0); MCV 92.5 FL (80.0-97.0); Mean Platelet Volume 9.6 FL (9.5-12.2); NRBC Per 100 WBC 0 X 10*3/uL (0.00-0.01); Platelet Count 389 X 10*3/uL (140-440); RBC 4.26 X 10*6/uL (4.10-5.20); RDW 13.6 % (11.5-14.5)
[2025-03-05 16:29] LABS: BUN/Creat Ratio 18.91 Ratio (12.00-20.00); Blood Urea Nitrogen 20.8 mg/dL (9.0-27.0); Carbon Dioxide 27.2 mmol/L (21.6-31.8); Chloride 98 mmol/L (96-109); Glucose 106 mg/dL (70-110); Potassium 4.5 mmol/L (3.5-5.5); Sodium 137 mmol/L (135-145)
[2025-03-05 16:30] LABS: ALT 16 U/L (8-44); AST 33 U/L (13-35); Albumin 3.9 g/dL (3.8-4.9); Albumin/Globulin Ratio 1.77 Ratio (1.60-3.17); Alkaline Phosphatase 117 U/L (41-126); Calcium 9.3 mg/dL (8.7-10.3); Globulin 2.2 g/dL (1.6-3.3); Total Bilirubin <0.2 mg/dL (0.3-1.2); Total Protein 6.1 g/dL (6.2-8.2)
== END | disposition home or self-care (01) ==
LOC: LABWHC1 10:41
PROVIDERS: ATTEND Orthopaedic Surgery
DX: Z01.818 Encounter for other preprocedural examination (principal); M17.11 Unilateral primary osteoarthritis, right knee; Z22.322 Carrier or suspected carrier of Methicillin resistant Staphylococcus aureus
CPT/HCPCS: 36415; 80053; 85027; 85610; 85730; 87070; 93005

== ENCOUNTER 2025-03-20 05:44 | Inpatient (IN) | payer MEDICARE, OTHER ==
[~2025-03-20 05:44] MED LIST changes: -HEPARIN SODIUM,PORCINE 5,000 UNIT/ML 1 ML VIAL SQ PRN; +TRANEXAMIC 1,000 MG/100ML-NACL 1,000 MG in SALINE 1 100ML.BAG IVPB PRN
[2025-03-20] MEDS: IV FLUID CONTINUATION 1,000 ML IV ONE ×2 (05:58→12:09)
[2025-03-20] MEDS: MELOXICAM 7.5 MG TAB PO PRN (06:27)
[2025-03-20] MEDS: LACTATED RINGERS 1,000 ML IV SCH (06:27)
[2025-03-20] MEDS: GABAPENTIN 300 MG CAP PO PRN (06:27)
[2025-03-20] MEDS: ACETAMINOPHEN TAB 500 MG TAB PO PRN (06:27)
[2025-03-20] MEDS: ONDANSETRON 4 MG/2 ML VIAL IVP STA (06:32)
[2025-03-20] MEDS: MIDAZOLAM 2 MG/2 ML VIAL IV PRN (06:40)
[2025-03-20] MEDS ORDERED: TRANEXAMIC 1,000 MG/100ML-NACL PREMIX BAG ONE (06:55)
[2025-03-20] MEDS ORDERED: fentaNYL (PF) 50 MCG/ML 2 ML AMP ONE (06:55)
[2025-03-20] MEDS ORDERED: PHENYLEPHRINE-0.9% NACL SYG 1,000 MCG/10 ML SYRINGE ONE (06:55)
[2025-03-20] MEDS ORDERED: PROPOFOL 10 MG/ML 20 ML VIAL IV ONE (06:55)
[2025-03-20] MEDS ORDERED: MIDAZOLAM 2 MG/2 ML VIAL ONE (06:55)
[2025-03-20] MEDS ORDERED: ROPIVACAINE 5 MG/ML 30 ML VIAL ONE (06:55)
[2025-03-20] MEDS: ceFAZolin 1,000 MG in SODIUM CHLORIDE 0.9% 1,000 ML IRRIGATION ONE (06:59)
[2025-03-20] MEDS ORDERED: fentaNYL (PF) 50 MCG/ML 2 ML AMP IV PRN (07:00)
[2025-03-20] MEDS ORDERED: ONDANSETRON 4 MG/2 ML VIAL IVP PRN (07:01)
[2025-03-20] MEDS ORDERED: NA PHOS,M-B/NA PHOS,DI-BA 133 ML ENEMA RECTAL PRN (07:01)
[2025-03-20] MEDS ORDERED: MAGNESIUM HYDROXIDE 2,400 MG/30 ML CUP PO PRN (07:01)
[2025-03-20] MEDS ORDERED: HYDROmorphone 0.5 MG/0.5 ML SYRINGE IVP PRN ×2 (07:01)
[2025-03-20] MEDS ORDERED: NALOXONE 0.4 MG/ML 1 ML VIAL IV PRN (07:01)
--- NOTE | 2025-03-20 08:07 | P.OP ---
Date of Procedure: 03/20/25 Preoperative Diagnosis: Severe osteoarthritis right knee Postoperative Diagnosis: Severe osteoarthritis right knee Procedure(s) Performed: Right total knee arthroplasty Implants: Ortiz [employer] Nephew Journey II CR Oxinium cruciate retaining femoral component size 4, right [employer] Journey nonporous tibial baseplate size 3, right [employer] Journey II, XLPE Deep Dished articular insert, size 11 mm, Size 3-4, right [employer] Journey Christina II resurfacing patellar component, oval, 29 mm All components were cemented using Palacos R bone cement The articulation is Oxinium on polyethylene Anesthesia: spinal Surgeon: Richard Ricci Outside Cutter #1: Rachna Hardy Estimated Blood Loss (ml): 50 Pathology: none sent Condition: stable Disposition: PACU Indications for Procedure: The patient's knee is end-stage, and conservative management has failed. The operation of knee replacement has been discussed at length in the office, as well as potential risks and complications. These are inclusive of, but not limited to: Infection, bleeding, scarring, discomfort, stiffness, blood vessel and nerve damage, need for further surgery, failure to relieve symptoms, persistence, recurrence, or worsening of problems, loosening, dislocation, wear, blood clot, pulmonary embolism, , gait dysfunction, stiffness, and other risks as discussed in the office. Patient elects to proceed and the consent form has been signed. Operative Findings: The operative findings are consistent with severe osteoarthritis of the right knee Description of Procedure: The patient was seen in the preoperative area, the consent was reviewed and the operative site was marked with a skin marker. The patient verified the procedure and the operative site. An adductor canal pain catheter and an iPACK block were placed by anesthesia in the preoperative area. The patient was then brought to the operating room and positioned on the operating room table in the supine position. Preoperative antibiotics and a gram of tranexamic acid were given intravenously. A spinal anesthetic was administered by the anesthesia department. Care was taken to make sure that all pressure points were a dequately padded. A tourniquet was placed on the upper thigh and the lower extremity was prepped with ChloraPrep and draped in usual sterile fashion. A universal time-out was then performed which confirmed the patient's name, surgical site, ALLERGIES, and consent. The lower extremity was then exsanguinated and tourniquet was inflated to 250 mmHg. A standard anterior midline approach to the knee was performed. The skin and subcutaneous tissue were sharply dissected down to the patellar tendon. A medial parapatellar arthrotomy was then performed. The knee was then extended, the patellar was everted, and the knee was flexed. The infra-patellar fat pad was removed in order to enhance exposure. The anterior horns of both menisci were excised, and a release was performed to the posterior medial aspect of the knee. On gross visual inspection, there was complete loss of articular cartilage in the medial and patellofemoral joint spaces. There was also significant cartilage damage in the lateral compartment. There were multiple periarticular osteophytes globally about the knee which were then removed with a Ronguer. The femoral canal was then opened with the 9.5 mm intramedullary drill. The 8 mm intramedullary roseanne was then inserted into the femoral canal with the distal femoral cutting guide set for 5 of valgus. The distal femoral cutting block was then pinned in place. The intramedullary roseanne was then removed, and the distal femur was then cut. The cutting block was then removed and the cut was checked for symmetry. The resected bone was then measured to confirm the appropriate distal femoral resection. Next, the sizing guide was then placed and set for 3 external rotation based off of the epicondylar axis and Curry's line. Pins were then placed and the drill holes, and the femur was sized with the sizing stylus. The pins were then removed, and the sizing guide was then removed. The spikes of the appropriate size femoral block was then placed into the predrilled holes, and malleted into place. Two 45 mm pins were then placed into the fixation holes on the cutting block. An carlton wing was then used to ensure there would be no notching with the anterior cut. The anterior condyles were cut without notching. The anterior chord cut was then performed, followed by the posterior cut, posterior chamfer cut, and the anterior chamfer cut. The collateral ligaments were protected during the entire process. The cutting block was then removed. Any remaining bone and osteophytes were removed from the femur with a Ronguer. Attention was then directed to the tibia. The remaining ACL was removed with a Ronguer, and the tibia was then gently subluxed forward with a large bent knee retractor. Any remaining menisci were excised. The posterior lateral corner was cauterized in order to coagulate the lateral geniculate artery. The extra medullary tibial cutting guide was then placed, set for the appropriate rotation, slope, and depth of resection. The proximal tibia cutting guide was then pinned in place. Proximal tibia was then cut and sized. A curved osteotome was then used to remove any posterior osteophytes from the distal femu r. The femoral trial was placed. A narrow saw blade was then used to remove the anterior intracondylar femoral bone. The CR notch trial was then placed. The tibial trial was placed with the appropriate-sized insert. The knee was able to fully extend and flex to 130 and was stable throughout all range of motion. The knee was then extended and the patella was everted. Patella was then measu red, and then using an osteotomy guide, the patella was cut at the appropriate level. The patellar component was sized. The patellar drill guide was placed and the patella was drilled. The patella trial was then placed. The knee was then taken through range of motion with the patella trial and the patella tracked normally using the no thumbs technique. The patella trial was then removed. The knee was then flexed and lug holes were drilled through the femoral trial and the femoral trial was then removed. The tibial was then re- exposed, and the tibial broach guide was then pinned in place after it was set for the appropriate rotation to allow for the most coverage without overhang. The tibia was then reamed and broached. The femoral canal was plugged with autologous bone. The cut surfaces of bone were then irrigated with pulsatile lavage. The knee was also irrigated with Irrisept solution. The components were then opened, the cement was mixed. Cement was placed on the backside of the femoral, tibial, and patellar components. Cement was then applied to the tibial surface and pressurized into the surface using finger pressurization technique. The tibial component was then applied and excess cement was removed after it was impacted securely noted to be flush with the cut surface. In similar fashion, the cement was applied to the cut femoral surface, pressurized and using finger pressurization the component was impacted in place. Excess cement was removed. The polyethylene spacer was then implanted and locked into position. Patellar component was then applied in a similar technique and the patellar clamp was used to hold patella in place while the cement hardened. The knee was held in full extension while the cement hardened. Once the cement had fully hardened, the knee was reinspected. Any other cement extrusion was removed the final range of motion testing showed range of motion from 0-130 with excellent stability, both medial and laterally and appropriate alignment of the leg. Patella tracked normally. After the cemented hardened, the tourniquet was released and hemostasis was obtained. A second gram of transexamic acid was given intravenously. The knee was again irrigated. The knee was again taken through range of motion and found to be stable throughout all range of motion of 0-130, and the patella tracked normally. The fascia was then closed with 0 Vicryl followed by #2 strata fix suture. The subcutaneous tissue was closed with 3-0 Vicryl and 3-0 strata fix. Exofin glue was used for the skin and placed with the knee in flexion. After the glue had dried, and Optafoam silver impregnated dressing was applied. A lightly compressive dressing was applied using web roll and Vasyl wrap. Patient was then transferred to the stretcher and taken to recovery room in stable condition. Sponge and needle counts were correct. The medical assistant per diem NEHA Dawn was required due the complexity surgery and the need for a skilled registered nurse surgical services. She assisted in positioning, draping, retraction, and closure of the wound.
[2025-03-20] MEDS: ROPIVACAINE 1,100 MG, SODIUM CHLORIDE 0.9% 500 ML 330 ML, EMPTY PAIN BALL 1 EACH MISCELLANE PRN (08:57)
--- NOTE | 2025-03-20 09:33 | XR ---
EXAMINATION TYPE: XR knee limited RT DATE OF EXAM: 03/20/2025 CLINICAL HISTORY: Postoperative evaluation Two views of the right knee are submitted. Identified are changes of total knee arthroplasty with femoral and tibial components appearing well seated. Postsurgical soft tissue changes are noted. Alignment is anatomic. [facility], , 03/20/2025 9:31 AM
[2025-03-20] MEDS: HYDROmorphone 0.5 MG/0.5 ML SYRINGE IVP PRN ×2 (10:55→16:00)
[2025-03-20] MEDS: SODIUM CHLORIDE 0.9% 1,000 ML IV SCH (11:28)
[2025-03-20] MEDS: traMADol 50 MG TAB PO PRN (14:26)
[2025-03-20] MEDS: DEXAMETHASONE SOD PHOSPHATE 4 MG/ML 1 ML VIAL IV ONE (14:42)
--- NOTE | 2025-03-20 18:27 | P.CONS ---
History of Present Illness - Reason for Consult Consult date: 03/20/25 Medical Management Requesting physician: Richard Ricci - History of Present Illness History of Presenting Illness: Patient is a very pleasant 84-year-old female with a past medical history of hypertension, hyperlipidemia, hypothyroidism, mild memory impairment, depression, and osteoarthritis. She is currently admitted under orthopedic surgery team status post right total knee arthroplasty completed secondary to severe osteoarthritis of right knee. We were consulted for medical management throughout hospitalization. Patient was seen and fully evaluated in room 458. She was resting comfortably in bed visiting with family members at bedside. She currently denies having any postoperative pain or discomfort. She denies having any postoperative nausea or vomiting, headache, lightheadedness, dizziness, chest pain, palpitations, shortness of breath, or experiencing any numbness/tingling in her extremities. Patient has not yet gotten out of bed and has not yet urinated since completion of surgical procedure. Review of systems: Pertinent positives and negatives as discussed in HPI, a complete review of systems was performed and all other systems are negative. Physical exam: Vital signs reviewed and stable. General: Nontoxic, no distress and appears stated age. Derm: Skin warm and dry, normal coloration for ethnicity. Head: Atraumatic, normocephalic and symmetric. Eyes: EOM's intact, no lid lag, and anicteric sclera Mouth: no lip lesions, mucus membranes moist Cardiovascular: regular rate and rhythm with normal S1S2, no murmur, positive posterior tibial pulses bilaterally, and cap refill < 2 seconds. Lungs: Respirations even, regular, and unlabored on room air. Lungs CTA bilaterally, no rhonchi, no rales, no wheezing, and no accessory muscle usage. Abdominal: soft, nontender to palpation, no guarding, no appreciable organomegaly Ext: No gross muscle atrophy, no edema, no contractures. Movement and sensation intact. Postoperative dressing and ice pack in place right knee. Neuro: Speech clear, face symmetrical and CN II-XII grossly intact with no noted focal neuro deficits Psych: Alert and oriented to person, place, time, and situation. Appropriate and pleasant affect. Assessment and Plan of Care: Status post right total knee arthroplasty Management per primary admitting orthopedic surgery team including DVT prophylaxis, pain management, wound/dressing management, and weightbearing, PT/OT Currently DVT prophylaxis with aspirin 325 mg twice daily. Postoperative urinary retention -Bladder scan as needed monitor for postvoid residual/urinary retention If urinary retention continues and patient requires straight catheterization we will plan on starting patient on Flomax 0.4 mg daily. Hypertension Monitor vital signs and continue daily medication regimen with furosemide 20 mg daily. Hypothyroidism Continue levothyroxine 88 mcg daily. Depression Continue Lexapro 20 mg daily. Data and imaging reviewed: Reviewed operative report, estimated blood loss 50 cc. Preoperative labs reviewed showing WBC count of 6.90, hemoglobin 12.7, platelet count 389. Coagulation profile normal findings. BMP showing sodium 137, potassium 4.5, chloride 98, BUN of 20.8, creatinine 1.1, GFR greater than 60. Vital signs reviewed. Blood pressure 115/55, heart rate 58, respiratory rate 16, temp 96.2 F axillary, and SpO2 of 93% on 2 L. Thank you for allowing us to participate in the care of this pleasant patient. Do not hesitate to contact us with questions. Someone can be reached from the [facility] hospitalist group all hours of the day at [phone] or via [employer]. Patient was seen independently by Nurse Practitioner. This document was prepared using [employer] dictation software. Please allow for errors in correspondence review clerk while rare they do occur. Lopez Mcknight NP rendered care for this patient independently, reviewed the findings and plan as documented in the note above and agree with plan. I did not physically speak with or examine the patient on this date. Past Medical History Past Medical History: Hyperlipidemia, Hypertension, Memory Impairment, Osteoarth ritis (OA), Thyroid Disorder Additional Past Medical History / Comment(s): hypothyroidism, fractured Lt. shoulder 2021, bilat. knee pain, hx. diverticulitis, frequent swelling lower legs , forgetful but does sign own consents per spouse History of Any Multi-Drug Resistant Organisms: C-DIFF Year Discovered:: 2013 MDRO Source:: intestinal Past Surgical History: Bowel Resection, Breast Surgery, Hysterectomy, Joint Replacement, Tonsillectomy Additional Past Surgical History / Comment(s): Lt. TKA, Rt. breast lumpectomy- benign, bowel resection 2023 for diverticulitis Past Anesthesia/Blood Transfusion Reactions: No Reported Reaction Additional Past Anesthesia/Blood Transfusion Reaction / Comm: Pt has never had a blood transfusion. Past Psychological History: Depression Additional Psychological History / Comment(s): . Smoking Status: Never smoker Past Alcohol Use History: None Reported Past Drug Use History: None Reported - Past Family History Daughter(s) Family Medical History: Cancer Additional Family Medical History / Comment(s): breast CA-recovered Father Family Medical History: Cancer Additional Family Medical History / Comment(s): testicular Mother Additional Family Medical History / Comment(s): Mother after wisdom tooth pulled and ended up with blood poisoning. Medications and Allergies Home Medications Medication Instructions Recorded Confirmed Type Escitalopram [Lexapro] 20 mg PO QAM 04/17/19 03/20/25 History Levothyroxine Sodium [Synthroid] 88 mcg PO QAM 02/15/24 03/20/25 History Potassium Chloride ER [K-Dur 20] 20 meq PO PC-BRKFST 02/15/24 03/20/25 History Magnesium Oxide [Magox 400] 400 mg PO DAILY 30 Days #30 tab 04/20/24 03/20/25 Rx Acetaminophen Tab [Tylenol Tab] 5 mg PO Q4H PRN 03/14/25 03/20/25 History Acetaminophen [Tylenol Extra 500 mg PO BID 03/14/25 03/20/25 History Strength] Cholecalciferol [Vitamin D3 (25 1 tab PO DAILY 03/14/25 03/20/25 History Mcg = 1000 Iu)] Cyanocobalamin (Vitamin B-12) 1,000 mcg PO DAILY 03/14/25 03/20/25 History [Vitamin B-12] Furosemide [Lasix] 20 mg PO DAILY 03/14/25 03/20/25 History Multivitamins, Thera [Multivitamin 1 tab PO DAILY 03/14/25 03/20/25 History (formulary)] Aspirin 325 mg PO BID #60 tab 03/20/25 Rx Ketorolac [Toradol] 10 mg PO Q6HR #12 tab 03/20/25 Rx Sennosides [Senokot] 2 tab PO DAILY PRN #60 tablet 03/20/25 Rx traMADol HCl [Ultram] 1 - 2 tab PO Q6H PRN #28 tab 03/20/25 Rx Allergies Allergy/AdvReac Type Severity Reaction Status Date / Time iodine Allergy Severe Abdominal Verified 03/20/25 05:56 Pain/hives clindamycin Allergy Nausea & Verified 03/20/25 05:56 Vomiting & Diarrhea codeine Allergy Rash/Hives Verified 03/20/25 05:56 metronidazole [From Flagyl] Allergy Nausea & Verified 03/20/25 05:56 Vomiting neomycin Allergy Nausea & Verified 03/20/25 05:56 Vomiting oxycodone [From OxyContin] Allergy Unknown Verified 03/20/25 05:56 prednisone Allergy Unknown Verified 03/20/25 05:56 shellfish derived [Shellfish] Allergy Rash/Hives Verified 03/20/25 05:56 amoxicillin AdvReac Rash/Hives Verified 03/20/25 05:56 hydrocodone bitartrate AdvReac Nausea & Verified 03/20/25 05:56 [From Vicodin] Vomiting & Diarrhea venom-honey bee AdvReac Chest Pain Verified 03/20/25 05:56 [bee venom (honey bee)] Physical Exam Vitals: Vital Signs Temp Pulse Pulse Resp BP Pulse Ox FiO2 03/20/25 13:30 55 L 16 101/49 100 5 03/20/25 13:00 55 L 16 96/48 100 03/20/25 12:30 53 L 16 93/49 100 03/20/25 12:00 53 L 16 98/48 100 03/20/25 11:30 54 L 16 101/52 100 03/20/25 11:15 53 L 16 98/50 100 03/20/25 11:00 55 L 16 118/54 100 03/20/25 10:45 55 L 16 122/59 100 03/20/25 10:30 53 L 16 110/54 96 03/20/25 10:15 53 L 16 112/58 96 03/20/25 10:00 54 L 16 109/57 96 03/20/25 09:45 57 L 16 113/56 96 03/20/25 09:30 56 L 16 118/61 96 03/20/25 09:15 53 L 16 111/61 96 03/20/25 09:00 97 F L 53 L 16 110/55 96 03/20/25 08:45 53 L 16 114/52 96 03/20/25 08:37 97 F L 54 L 16 107/55 96 03/20/25 06:55 90 16 142/75 97 40 03/20/25 06:50 89 16 138/70 98 03/20/25 06:45 95 17 140/72 98 41 07/01/25 05:55 97.6 F 105 H 18 142/76 96 Intake and Output 03/20/25 03/20/25 03/20/25 06:59 14:59 22:59 Intake Total 951 100 Output Total 50 Balance 951 50 Intake: IV 951 100 Output: Estimated Blood Loss 50 Other: Weight 80.6 kg 80.6 kg
[2025-03-20] MEDS: ASPIRIN 325 MG TAB PO SCH (20:20)
[2025-03-20] MEDS: SENNOSIDES-DOCUSATE SODIUM 1 EACH TAB PO SCH (20:20)
--- NOTE | 2025-03-20 20:27 | P.ANPRN ---
Procedure Note - Anesthesia - Nerve Block Performed Right Adductor Canal Infusion Time Out Performed: Yes Date of Procedure: 03/20/25 Procedure Start Time: 06:39 Procedure Stop Time: 06:49 Location of Patient: PreOp Indication: Acute Post-Operative Pain, Requested by Surgeon Sedation Type: Sedate with meaningful contact maintained Preparation: Sterile Prep, Sterile Dressing Position: Supine Catheter: Indwelling Needle Types: Pajunk Needle Gauge: 21 Ultrasound used to visualize needle placement: Yes Ultrasound used to observe medication spread: Yes Blood Aspirated: No Pain Paresthesia on Injection Noted: No Resistance on Injection: Normal Image Stored and Saved: Yes Events: Uneventful and Well Tolerated (Ropivacaine 0.5% 20 cc was dexamethasone 4 mg)
--- NOTE | 2025-03-20 20:30 | P.ANPRN ---
Procedure Note - Anesthesia - Nerve Block Performed Right iPack Single Time Out Performed: Yes Date of Procedure: 03/20/25 Procedure Start Time: 06:50 Procedure Stop Time: 06:52 Location of Patient: PreOp Indication: Acute Post-Operative Pain, Requested by Surgeon Sedation Type: Sedate with meaningful contact maintained Preparation: Sterile Prep Position: Left Lateral Needle Types: Pajunk Needle Gauge: 21 Ultrasound used to visualize needle placement: Yes Ultrasound used to observe medication spread: Yes Blood Aspirated: No Pain Paresthesia on Injection Noted: No Resistance on Injection: Normal Image Stored and Saved: Yes Events: Uneventful and Well Tolerated (Ropivacaine 0.5% 20 cc was dexamethasone 4 mg)
[2025-03-21] MEDS: LEVOTHYROXINE 88 MCG TAB PO SCH (05:59)
--- NOTE | 2025-03-21 06:13 | P.PN ---
Progress Note - Text 03/21/25 648am 84-year-old female status post total knee replacement. Patient has been on for postop pain control with a solution running at 8 cc's of 8, patient's pain is poorly controlled has been receiving IV Dilaudid. Patient also has hip pain which is totally unrelated to the procedure. Plan to continue On-Q pump infusion
[2025-03-21] MEDS: KETOROLAC 15 MG/ML 1 ML VIAL IVP PRN (06:48)
[2025-03-21 08:28] LABS: Basophils # (A) 0.03 X 10*3/uL (0.00-0.10); Basophils % (A) 0.5 %; Eosinophils # (A) 0.05 X 10*3/uL (0.04-0.35); Eosinophils % (A) 0.8 %; HCT 30.6 % (37.2-46.3); HGB 10.0 g/dL (12.0-15.0); Immature Grans, Automated 0.30 %; Lymphocytes # (A) 1.22 X 10*3/uL (0.90-5.00); Lymphocytes % (A) 18.3 %; MCH 30.4 pg (27.0-32.0); MCHC 32.7 g/dL (32.0-37.0); MCV 93.0 FL (80.0-97.0); Monocytes # (A) 0.88 X 10*3/uL (0.20-1.00); Monocytes % (A) 13.2 %; NRBC Per 100 WBC 0 X 10*3/uL (0.00-0.01); Neutrophils # (A) 4.46 X 10*3/uL (1.80-7.70); Neutrophils % (A) 66.9 %; Platelet Count 244 X 10*3/uL (140-440); RBC 3.29 X 10*6/uL (4.10-5.20); RDW 14.1 % (11.5-14.5); WBC 6.66 X 10*3/uL (4.50-10.00)
[2025-03-21 08:35] LABS: Anion Gap 7.00 mmol/L (4.00-12.00); BUN/Creat Ratio 20.40 Ratio (12.00-20.00); Blood Urea Nitrogen 20.4 mg/dL (9.0-27.0); Calcium 8.3 mg/dL (8.7-10.3); Carbon Dioxide 25.0 mmol/L (21.6-31.8); Chloride 105 mmol/L (96-109); Glucose 103 mg/dL (70-110); Magnesium 1.9 mg/dL (1.5-2.4); Potassium 4.7 mmol/L (3.5-5.5); Sodium 137 mmol/L (135-145)
--- NOTE | 2025-03-21 08:50 | P.PN ---
Subjective Progress Note Date: 03/21/25 This is an 84-year-old female who is status post right total knee arthroplasty. This is postoperative day #1 and patient is seen and evaluated at bedside today. Patient states that the right knee is quite sore and she has not worked with physical therapy yet today. Patient denies any fever/chills, chest pain, shortness breath, abdominal pain, numbness, weakness or tingling. Objective - Vital Signs Vital signs: Vital Signs Temp 97.6 F 03/21/25 07:53 Pulse 67 03/21/25 07:53 Resp 18 03/21/25 07:53 BP 126/77 03/21/25 07:53 Pulse Ox 95 03/21/25 07:53 FiO2 5 03/20/25 13:30 Intake & Output 03/20/25 03/21/25 03/21/25 18:59 06:59 18:59 Intake Total 100 Output Total 500 Balance -400 Weight 80.6 kg Intake: IV 100 Output: Urine 450 Estimated Blood Loss 50 Other: Voiding Method Toilet Toilet Bedside Commode # Voids 2 - Exam Vital signs are stable. Patient is in no acute distress and is alert and oriented 3. Calf is soft and nontender to palpation. Dressing is clean, dry, and intact. Patient has full foot and ankle motion without pain or difficulty. Sensation intact. Neurovascular status and circulatory status are intact. - Labs CBC & Chem 7: 03/21/25 04:18 03/21/25 04:18 Labs: Abnormal Lab Results - Last 24 Hours (Table) 03/21/25 03/21/25 Range/Units 04:18 04:18 RBC 3.29 L (4.10-5.20) X 10*6/uL Hgb 10.0 L (12.0-15.0) g/dL Hct 30.6 L (37.2-46.3) % Est GFR (CKD-EPI) 56 L (>=60) BUN/Creatinine Ratio 20.40 H (12.00-20.00) Ratio Calcium 8.3 L (8.7-10.3) mg/dL Assessment and Plan (1) Osteoarthritis of right knee Current Visit: Yes Status: Acute Code(s): M17.11 - UNILATERAL PRIMARY OSTEOARTHRITIS, RIGHT KNEE SNOMED Code(s): 171220704993656 (2) Status post total right knee replacement Current Visit: Yes Status: Acute Code(s): Z96.651 - PRESENCE OF RIGHT ARTIFICIAL KNEE JOINT SNOMED Code(s): 3111807377584 Plan: #1 Continue with routine postoperative care and pain control, leave dressing in place for 7 days. #2 Anticoagulation with aspirin. #3 Physical therapy today. #4 Appreciate input from internal medicine. #5 Anticipate discharge home with home care in the next 24-48 hours.
[2025-03-21] MEDS: MAGNESIUM OXIDE 400 MG TAB PO SCH (09:20)
[2025-03-21] MEDS: traMADol 50 MG TAB PO PRN (09:20)
[2025-03-21] MEDS: ESCITALOPRAM 20 MG TAB PO SCH (09:20)
[2025-03-21] MEDS: CHOLECALCIFEROL 25 MCG (1000 IU) TABLET PO SCH (09:20)
[2025-03-21] MEDS: FUROSEMIDE 20 MG TAB PO SCH (09:20)
[2025-03-21] MEDS: MULTIVITAMINS, THERA 1 EACH TAB PO SCH (09:20)
--- NOTE | 2025-03-21 15:28 | P.PN ---
Subjective Progress Note Date: 03/21/25 Hospital course: Patient is a very pleasant 84-year-old female with a past medical history of hypertension, hyperlipidemia, hypothyroidism, mild memory impairment, depression, and osteoarthritis. She is currently admitted under orthopedic surgery team status post right total knee arthroplasty completed secondary to severe osteoarthritis of right knee. We were consulted for medical management throughout hospitalization. Physical exam: Patient was seen and fully evaluated at bedside this morning. She is postoperative day 1 and appears to be doing well. Patient reports her pain was better controlled until she ambulated with physical therapy and currently reports it is now a 7 out of 10. She denies experiencing any postoperative nausea or vomiting. Reports tolerating oral intake and that she is urinating without any difficulties. Patient reports feeling "gassy" stating that she has passed a lot of flatus, but states she has not yet had a bowel movement since yesterday morning. Patient denies having any additional needs, questions, or concerns at this time. Vital signs reviewed and stable. General: Nontoxic, no distress and appears stated age. Derm: Skin warm and dry, normal coloration for ethnicity. Head: Atraumatic, normocephalic and symmetric. Eyes: EOM's intact, no lid lag, and anicteric sclera Mouth: no lip lesions, mucus membranes moist Cardiovascular: regular rate and rhythm with normal S1S2, no murmur, positive posterior tibial pulses bilaterally, and cap refill < 2 seconds. Lungs: Respirations even, regular, and unlabored on room air. Lungs CTA bilaterally, no rhonchi, no rales, no wheezing, and no accessory muscle usage. Abdominal: soft, nontender to palpation, no guarding, no appreciable organomegaly Ext: No gross muscle atrophy, no edema, no contractures. Movement and sensation intact. Postoperative dressing in place right knee. Neuro: Speech clear, face symmetrical and CN II-XII grossly intact with no noted focal neuro deficits Psych: Alert and oriented to person, place, time, and situation. Appropriate and pleasant affect. Assessment and Plan of Care: Status post right total knee arthroplasty Management per primary admitting orthopedic surgery team including DVT prophylaxis, pain management, wound/dressing management, and weightbearing, PT/OT Currently DVT prophylaxis with aspirin 325 mg twice daily. Acute postoperative blood loss anemia Preoperative hemoglobin 12.7 with postoperative hemoglobin of 10.0. This is a stable and expected finding. No active bleeding. No need for transfusion or any further interventions at this time. Postoperative hypoxia Patient currently requiring 2 L O2 via nasal cannula likely secondary to postoperative atelectasis. Patient denies shortness of breath, cough, or congestion. Discussed with patient coughing and deep breathing exercises as well as use of incentive spirometry 10-15 times hourly while awake. Wean from oxygen as patient tolerates. Postoperative urinary retention, resolved -Bladder scan as needed monitor for postvoid residual/urinary retention Hypertension Monitor vital signs and continue daily medication regimen with furosemide 20 mg daily. Hypothyroidism Continue levothyroxine 88 mcg daily. Depression Continue Lexapro 20 mg daily. Data and imaging reviewed: Postoperative labs reviewed. Patient with acute postoperative blood loss anemia with hemoglobin of 10.0 with preoperative hemoglobin of 12.7. BMP unremarkable. Blood glucose 103. Magnesium 1.9. Vital signs reviewed. Blood pressure 126/77, heart rate 67, respiratory rate 18, temp 97.6 F, and SpO2 of 95% on 2 L. Thank you for allowing us to participate in the care of this pleasant patient. Do not hesitate to contact us with questions. Someone can be reached from the [facility] hospitalist group all hours of the day at [phone] or via [employer]. Patient was seen independently by Nurse Practitioner. This document was prepared using [employer] dictation software. Please allow for errors in cleaning technician while rare they do occur. Lopez Mcknight NP rendered care for this patient independently, reviewed the findings and plan as documented in the note above and agree with plan. I did not physically speak with or examine the patient on this date. Objective - Vital Signs Vital signs: Vital Signs Temp 97.6 F 03/21/25 07:53 Pulse 67 03/21/25 07:53 Resp 18 03/21/25 07:53 BP 126/77 03/21/25 07:53 Pulse Ox 95 03/21/25 07:53 FiO2 5 03/20/25 13:30 Intake & Output 03/20/25 03/21/25 03/21/25 18:59 06:59 18:59 Intake Total 100 Output Total 500 Balance -400 Weight 80.6 kg Intake: IV 100 Output: Urine 450 Estimated Blood Loss 50 Other: Voiding Method Toilet Toilet Bedside Commode # Voids 2 - Labs CBC & Chem 7: 03/21/25 04:18 03/21/25 04:18
--- NOTE | 2025-03-22 10:24 | P.PN ---
Subjective Progress Note Date: 03/22/25 This is an 84-year-old female who is status post right total knee arthroplasty. This is postoperative day #2 and patient is seen and evaluated at bedside today. Patient denies any new complaints today, but states that she has had difficulty with mobilization and is planning for discharge to rehab. Patient denies any fever/chills, chest pain, shortness breath, abdominal pain, numbness, weakness or tingling. Objective - Vital Signs Vital signs: Vital Signs Temp 98.2 F 03/22/25 07:16 Pulse 73 03/22/25 07:16 Resp 18 03/22/25 07:16 BP 102/64 03/22/25 07:16 Pulse Ox 90 L 03/22/25 07:16 FiO2 5 03/20/25 13:30 Intake & Output 03/21/25 03/22/25 03/22/25 18:59 06:59 18:59 Intake Total 2160 Output Total 350 Balance 1810 Intake: Oral 2160 Output: Urine 350 Other: Voiding Method Toilet # Voids 3 3 # Bowel Movements 0 - Exam Vital signs are stable. Patient is in no acute distress and is alert and oriented 3. Calf is soft and nontender to palpation. Dressing is clean, dry, and intact. Patient has full foot and ankle motion without pain or difficulty. Sensation intact. Neurovascular status and circulatory status are intact. - Labs CBC & Chem 7: 03/21/25 04:18 03/21/25 04:18 Assessment and Plan (1) Osteoarthritis of right knee Current Visit: Yes Status: Acute Code(s): M17.11 - UNILATERAL PRIMARY OSTEOARTHRITIS, RIGHT KNEE SNOMED Code(s): 327221124204715 (2) Status post total right knee replacement Current Visit: Yes Status: Acute Code(s): Z96.651 - PRESENCE OF RIGHT ARTIFICIAL KNEE JOINT SNOMED Code(s): 8630529514246 Plan: #1 Continue with routine postoperative care and pain control, leave dressing in place for 7 days. #2 Anticoagulation with aspirin. #3 Physical therapy today. #4 Appreciate input from internal medicine. #[address] [facility] in the next 24-48 hours.
--- NOTE | 2025-03-22 14:16 | P.PN ---
Subjective Progress Note Date: 03/22/25 Hospital course: Patient is a very pleasant 84-year-old female with a past medical history of hypertension, hyperlipidemia, hypothyroidism, mild memory impairment, depression, and osteoarthritis. She is currently admitted under orthopedic surgery team status post right total knee arthroplasty completed secondary to severe osteoarthritis of right knee. We were consulted for medical management throughout hospitalization. Physical exam: Patient was seen and fully evaluated at bedside this morning. She is postoperative day 2 and appears to be doing well. Patient reports her pain better controlled today. She reports urinating without any difficulties, tolerating oral intake, denies any nausea or vomiting denies any other complaints, questions, or concerns at this time. Vital signs reviewed and stable. General: Nontoxic, no distress and appears stated age. Derm: Skin warm and dry, normal coloration for ethnicity. Head: Atraumatic, normocephalic and symmetric. Eyes: EOM's intact, no lid lag, and anicteric sclera Mouth: no lip lesions, mucus membranes moist Cardiovascular: regular rate and rhythm with normal S1S2, no murmur, positive posterior tibial pulses bilaterally, and cap refill < 2 seconds. Lungs: Respirations even, regular, and unlabored on room air. Lungs CTA bilaterally, no rhonchi, no rales, no wheezing, and no accessory muscle usage. Abdominal: soft, nontender to palpation, no guarding, no appreciable organomegaly Ext: No gross muscle atrophy, no edema, no contractures. Movement and sensation intact. Postoperative dressing in place right knee. Neuro: Speech clear, face symmetrical and CN II-XII grossly intact with no noted focal neuro deficits Psych: Alert and oriented to person, place, time, and situation. Appropriate and pleasant affect. Assessment and Plan of Care: Status post right total knee arthroplasty Management per primary admitting orthopedic surgery team including DVT prophylaxis, pain management, wound/dressing management, and weightbearing, PT/OT Currently DVT prophylaxis with aspirin 325 mg twice daily. Acute postoperative blood loss anemia Preoperative hemoglobin 12.7 with postoperative hemoglobin of 10.0. This is a stable and expected finding. No active bleeding. No need for transfusion or any further interventions at this time. Postoperative hypoxia Patient currently requiring 2 L O2 via nasal cannula likely secondary to postoperative atelectasis. Patient denies shortness of breath, cough, or congestion. Discussed with patient coughing and deep breathing exercises as well as use of incentive spirometry 10-15 times hourly while awake. Wean from oxygen as patient tolerates. Postoperative urinary retention, resolved -Bladder scan as needed monitor for postvoid residual/urinary retention Hypertension Monitor vital signs and continue daily medication regimen with furosemide 20 mg daily. Hypothyroidism Continue levothyroxine 88 mcg daily. Depression Continue Lexapro 20 mg daily. Data and imaging reviewed: Postoperative labs reviewed. Patient with acute postoperative blood loss anem ia with hemoglobin of 10.0 with preoperative hemoglobin of 12.7. BMP unremarkable. Blood glucose 103. Magnesium 1.9. Vital signs reviewed. Blood pressure 102/64, HR 73, RR 18, temp 98.2 F, and SpO2 of 90% on room air. Patient medically optimized for discharge once cleared by primary admitting orthopedic surgery team. Thank you for allowing us to participate in the care of this pleasant patient. Do not hesitate to contact us with questions. [facility] all hours of the day at [phone] or via [employer]. Patient was seen independently by Nurse Practitioner. This document was prepared using [employer] dictation software. Please allow for errors in appointment specialist while rare they do occur. Lopez Mcknight NP rendered care for this patient independently, reviewed the findings and plan as documented in the note above and agree with plan. I did not physically speak with or examine the patient on this date. Objective - Vital Signs Vital signs: Vital Signs Temp 98.2 F 03/22/25 07:16 Pulse 73 03/22/25 07:16 Resp 18 03/22/25 07:16 BP 102/64 03/22/25 07:16 Pulse Ox 90 L 03/22/25 07:16 FiO2 5 03/20/25 13:30 Intake & Output 03/21/25 03/22/25 03/22/25 18:59 06:59 18:59 Intake Total 2160 Output Total 350 Balance 1810 Intake: Oral 2160 Output: Urine 350 Other: # Voids 3 3 # Bowel Movements 0 - Labs CBC & Chem 7: 03/21/25 04:18 03/21/25 04:18
[2025-03-22] MEDS ORDERED: ACETAMINOPHEN TAB 325 MG TAB PO PRN (16:55)
[2025-03-23 08:07] VITALS: BP 137/62; PULSE 73; RESP 18; TEMP 99
[2025-03-23 09:35] LABS: Basophils # (A) 0.03 X 10*3/uL (0.00-0.10); Basophils % (A) 0.3 %; Eosinophils # (A) 0.22 X 10*3/uL (0.04-0.35); Eosinophils % (A) 2.5 %; HCT 26.1 % (37.2-46.3); HGB 8.6 g/dL (12.0-15.0); Immature Grans, Automated 0.30 %; Lymphocytes # (A) 1.78 X 10*3/uL (0.90-5.00); Lymphocytes % (A) 20.0 %; MCH 29.8 pg (27.0-32.0); MCHC 33.0 g/dL (32.0-37.0); MCV 90.3 FL (80.0-97.0); Monocytes # (A) 0.94 X 10*3/uL (0.20-1.00); Monocytes % (A) 10.6 %; NRBC Per 100 WBC 0 X 10*3/uL (0.00-0.01); Neutrophils # (A) 5.88 X 10*3/uL (1.80-7.70); Neutrophils % (A) 66.3 %; Platelet Count 241 X 10*3/uL (140-440); RBC 2.89 X 10*6/uL (4.10-5.20); RDW 14.0 % (11.5-14.5); WBC 8.88 X 10*3/uL (4.50-10.00)
[2025-03-23 10:54] LABS: HCT 27.2 % (37.2-46.3); HGB 9.3 g/dL (12.0-15.0); MCH 31.2 pg (27.0-32.0); MCHC 34.2 g/dL (32.0-37.0); MCV 91.3 fL (80.0-97.0); Platelet Count 266 10*3/uL (140-440); RBC 2.98 10*6/uL (4.10-5.20); RDW 13.9 % (11.5-14.5); WBC 7.97 10*3/uL (4.50-10.00)
[2025-03-23 11:12] LABS: African American GFR (CKD) 68 (>60 ml/min/1.73 sqM); Anion Gap 5 mmol/L; Blood Urea Nitrogen 19 mg/dL (7-17); Calcium 8.8 mg/dL (8.4-10.2); Carbon Dioxide 29 mmol/L (22-30); Chloride 97 mmol/L (98-107); Glucose 85 mg/dL (74-99); Magnesium 1.9 mg/dL (1.6-2.3); Non-African American GFR(CKD) 59 (>60 ml/min/1.73 sqM); Potassium 4.1 mmol/L (3.5-5.1); Sodium 131 mmol/L (137-145)
--- NOTE | 2025-03-23 11:20 | P.DS ---
Providers Date of admission: 03/22/25 14:02 Expected date of discharge: 03/23/25 Attending physician: Richard Ricci Consults: 03/20/25 07:01 Consult Physician Routine Consulting Provider: Salas Coley Consult Reason/Comments: medical management Do you want consulting provider notified?: Yes Primary care physician: Elijah Silva MD - Discharge Diagnosis(es) (1) Knee pain, right Current Visit: Yes Status: Acute (2) Hypertension Current Visit: Yes Status: Acute (3) Hypothyroidism Current Visit: Yes Status: Acute (4) Depression Current Visit: Yes Status: Acute (5) Osteoarthritis of right knee Current Visit: Yes Status: Acute (6) Status post total right knee replacement Current Visit: Yes Status: Acute Hospital Course: This is a pleasant 84-year-old female who presented with severe osteoarthritis of her right knee who failed outpatient conservative therapy. She was admitted for right total knee arthroplasty. She initially was progressing slowly but has had significant improvement over the past 2 days. There was consideration for discharge to a rehabilitation facility. Patient now feels she has continued to improve and feels she will be ready for discharge home today. She is able to ambulate to the restroom with the assistance of a walker. Her is obtaining a walker for home use today. Her pain has been well-controlled. She is eating and voiding without difficulty. She does not feel she needs home care. The patient tolerated the procedure well and did well postoperatively. Condition on day of discharge stable. Patient will be discharged home. We discussed patient must need clearance by medicine prior to discharge home. Patient was cleared preoperatively for surgery by Dr. Silva. Patient currently denies any nausea, vomiting, fever, or chills. Patient is eating and voiding freely without difficulty. Patient may shower Optifoam dressing intact. Patient may remove Optifoam dressing in 7 days postoperatively and shower without a dressing at that time. She may continue with dressing changes twice a day as needed following removal of surgical dressing. Patient should refrain from driving until at least after their first follow-up appointment in the office. She may utilize compression stockings until scheduled follow-up appointment. Stockings may be removed prior to sleeping. She may weight-bear as tolerated on her right lower extremity with the assistance of a walker. MAPS has been reviewed today, 03/23/2025, with an Overall Overdose Risk Score of 000. An "Opiod Start Talking" Form has been signed and placed in the patient's chart. A prescription has been written for Ultram 50 mg, 1 tab, every 6 hours, as needed for acute pain, dispense #28. Prescriptions are also written for Senokot-S, Toradol, and aspirin. These prescriptions are sent to the [facility] pharmacy per request of the patient. We did discuss she should take her aspirin prescription until completion. She should avoid anti-inflammatory medications. Patient's other medical diagnoses include hypothyroidism, hypertension and depression. Physical Exam Total Knee Arthroplasty: Status post surgical day number 3 Patient is awake, alert, and oriented 3 Vital signs stable Good chest excursion with deep inspiration and expiration No signs or symptoms of DVT; no calf pain Dressing is clean, dry, and intact; no erythema, purulence, or signs of infection Patient has full foot and ankle motion without difficulty at the right lower extremity Dorsiflexion and plantarflexion positive sustained bilaterally Neurovascular status left lower extremity intact Procedures: Right total knee arthroplasty Patient Condition at Discharge: Stable Plan - Discharge Summary Discharge Rx Participant: No New Discharge Prescriptions: New Sennosides-Docusate Sodium [Senokot-S] 1 tab PO BID PRN #60 tablet PRN Reason: Constipation Aspirin 325 mg PO BID #60 tab Ketorolac [Toradol] 10 mg PO Q6HR PRN #12 tab PRN Reason: Pain traMADol HCl [Ultram] 50 mg PO Q6H PRN #28 tab PRN Reason: Pain Continue Escitalopram [Lexapro] 20 mg PO QAM Potassium Chloride ER [K-Dur 20] 20 meq PO PC-BRKFST Levothyroxine Sodium [Synthroid] 88 mcg PO QAM Cholecalciferol [Vitamin D3 (25 Mcg = 1000 Iu)] 1 tab PO DAILY Acetaminophen [Tylenol Extra Strength] 500 mg PO BID Magnesium Oxide [Magox 400] 400 mg PO DAILY 30 Days #30 tab Furosemide [Lasix] 20 mg PO DAILY Acetaminophen Tab [Tylenol] 5 mg PO Q4H PRN PRN Reason: Pain Multivitamins, Thera [Multivitamin (formulary)] 1 tab PO DAILY Cyanocobalamin (Vitamin B-12) [Vitamin B-12] 1,000 mcg PO DAILY Discharge Medication List Escitalopram [Lexapro] 20 mg PO QAM 04/17/19 [History] Levothyroxine Sodium [Synthroid] 88 mcg PO QAM 02/15/24 [History] Potassium Chloride ER [K-Dur 20] 20 meq PO PC-BRKFST 02/15/24 [History] Magnesium Oxide [Magox 400] 400 mg PO DAILY 30 Days #30 tab 04/20/24 [Rx] Acetaminophen Tab [Tylenol] 5 mg PO Q4H PRN 03/14/25 [History] Acetaminophen [Tylenol Extra Strength] 500 mg PO BID 03/14/25 [History] Cholecalciferol [Vitamin D3 (25 Mcg = 1000 Iu)] 1 tab PO DAILY 03/14/25 [History] Cyanocobalamin (Vitamin B-12) [Vitamin B-12] 1,000 mcg PO DAILY 03/14/25 [History] Furosemide [Lasix] 20 mg PO DAILY 03/14/25 [History] Multivitamins, Thera [Multivitamin (formulary)] 1 tab PO DAILY 03/14/25 [History] Aspirin 325 mg PO BID #60 tab 03/23/25 [Rx] Ketorolac [Toradol] 10 mg PO Q6HR PRN #12 tab 03/23/25 [Rx] Sennosides-Docusate Sodium [Senokot-S] 1 tab PO BID PRN #60 tablet 03/23/25 [Rx] traMADol HCl [Ultram] 50 mg PO Q6H PRN #28 tab 03/23/25 [Rx] Follow up Appointment(s)/Referral(s): Richard Ricci DO [Doctor of Osteopathic Medicine] - 04/04/25 2:05 pm Activity/Diet/Wound Care/Special Instructions: Weightbearing as tolerated with a walker. Leave dressing intact. Dressing may be removed by patient in 7 days. Then change dressing twice daily until follow up. May shower with initial dressing intact and after removal. If dressing become saturated, please remove. Recommend use of compression stockings daily until follow up to help prevent swelling and blood clots. May remove at night before sleeping. Please take aspirin 325mg twice daily for 30 days to prevent blood clots. Please follow up with [facility] and call with any questions or concerns, . Discharge Disposition: HOME SELF-CARE
--- NOTE | 2025-03-23 11:37 | P.PN ---
Subjective Progress Note Date: 03/23/25 Hospital course: Patient is a very pleasant 84-year-old female with a past medical history of hypertension, hyperlipidemia, hypothyroidism, mild memory impairment, depression, and osteoarthritis. She is currently admitted under orthopedic surgery team status post right total knee arthroplasty completed secondary to severe osteoarthritis of right knee. We were consulted for medical management throughout hospitalization. Physical exam: Patient was seen and fully evaluated at bedside this morning. She is postoperative day 3 and is currently resting in bed visiting with her at bedside. She appears to be doing well. Patient reports her pain is controlled. States she is urinating without any difficulties and having a bowel movement la st night. Patient is tolerating oral intake and continues to deny any nausea or vomiting. Reports she has been ambulating to and from restroom with walker and mild assistance from nursing staff without difficulties. Patient and at bedside states she is ready for discharge home. Vital signs reviewed and stable. General: Nontoxic, no distress and appears stated age. Derm: Skin warm and dry, normal coloration for ethnicity. Head: Atraumatic, normocephalic and symmetric. Eyes: EOM's intact, no lid lag, and anicteric sclera Mouth: no lip lesions, mucus membranes moist Cardiovascular: regular rate and rhythm with normal S1S2, no murmur, positive posterior tibial pulses bilaterally, and cap refill < 2 seconds. Lungs: Respirations even, regular, and unlabored on room air. Lungs CTA bilaterally, no rhonchi, no rales, no wheezing, and no accessory muscle usage. Abdominal: soft, nontender to palpation, no guarding, no appreciable organomegaly Ext: No gross muscle atrophy, no edema, no contractures. Movement and sensation intact. Postoperative dressing in place right knee. Neuro: Speech clear, face symmetrical and CN II-XII grossly intact with no noted focal neuro deficits Psych: Alert and oriented to person, place, time, and situation. Appropriate and pleasant affect. Assessment and Plan of Care: Status post right total knee arthroplasty Management per primary admitting orthopedic surgery team including DVT prophylaxis, pain management, wound/dressing management, and weightbearing, PT/OT Currently DVT prophylaxis with aspirin 325 mg twice daily. Acute postoperative blood loss anemia. Preoperative hemoglobin 12.7 with postoperative hemoglobin currently 9.3. This is a stable and expected finding. No active bleeding. No need for transfusion or any further interventions at this time. Postoperative hypoxia. Resolved. Recommend continue use of incentive spirometry 10-15 times hourly while awake. Postoperative urinary retention, Resolved. Hypertension. Monitor vital signs and continue daily medication regimen with furosemide 20 mg daily. Hypothyroidism. Continue levothyroxine 88 mcg daily. Depression. Continue Lexapro 20 mg daily. Data and imaging reviewed: Morning labs reviewed. CBC showing stable hemoglobin improving from 8.6 yesterday to 9.3 this morning. BMP showing mild hypochloremic hyponatremia with sodium of 131 and chloride of 97. Blood glucose 85. Magnesium 1.9.. Vital signs reviewed. Blood pressure 137/62, heart rate 73, respiratory rate 18, temp 99.0 F, and SpO2 of 91% on room air. Patient medically optimized for discharge once cleared by primary admitting orthopedic surgery team. Thank you for allowing us to participate in the care of this pleasant patient. Do not hesitate to contact us with questions. Someone can be reached from the [facility] all hours of the day at [phone] or via [employer]. Patient was seen independently by Nurse Practitioner. This document was prepared using [employer] dictation software. Please allow for errors in escort vehicle driver while rare they do occur. Lopez Mcknight NP rendered care for this patient independently, reviewed the findings and plan as documented in the note above and agree with plan. I did not physically speak with or examine the patient on this date. Objective - Vital Signs Vital signs: Vital Signs Temp 99.0 F 03/23/25 08:00 Pulse 73 03/23/25 08:00 Resp 18 03/23/25 08:00 BP 137/62 03/23/25 08:00 Pulse Ox 91 L 03/23/25 08:00 FiO2 5 03/20/25 13:30 Intake & Output 03/22/25 03/23/25 03/23/25 18:59 06:59 18:59 Other: Voiding Method Toilet Toilet # Voids 3 3 - Labs CBC & Chem 7: 03/23/25 10:08 03/23/25 10:08
--- NOTE | 2025-03-29 15:19 | CDI ---
Documentation Clarification Form Date: 03/29/2025 03:10:02 PM From: Nicolle Emerson RN, CCDS Email: [email or web address] Admit Date: 03/22/2025 02:02:00 PM Patient Name: Cailin Cooper Visit Number: [id number] Discharge Date: 03/23/2025 12:40:00 PM ATTENTION: The Clinical Documentation Specialists (CDI) and [facility] Coding Staff appreciate your assistance in clarifying documentation. Please respond to the clarification below the line at the bottom and electronically sign. The CDI & [facility] Coding staff will review the response and follow-up if needed. Please note: Queries are made part of the Legal Health Record. If you have any questions, please contact the author of this message via ITS. Doctor Reuben Mahmood Postoperative urinary retention is documented in your progress notes and the patient had a right TKA on 03/20. Clarification is requested. History/Risk Factors: HLD, hypothyroidism and depression. Presents for elective surgery due to osteoarthritis of right knee. Patients Admitting Diagnosis: severe osteoarthritis of right knee Post-Operative Diagnosis: same Procedure performed: Right TKA 03/20 Clinical Indicators: 03/20 IM Consult: "Patient has not yet gotten out of bed and has not yet urinated since completion of surgical procedure. Postoperative urinary retention. Bladder scan as needed, monitor for postvoid residual/urinary retention. If urinary retention continues and patient requires straight catheterization we will plan on starting patient on Flomax 0.4 mg daily." 03/23 IM: "Postoperative urinary retention, Resolved." 03/20 Nursing Note: "voided clear yellow urine per bedside commode with no genitourinary symptoms." Treatment: Bladder scan PRN for postvoid residual/urinary retention What relationship, if any, exists between the diagnosis of [insert dx] and the procedure: [x ] Postop urinary retention is not clinically significant and not a complication of the procedure [ ] Postop urinary retention is clinically significant and not a complication of the procedure [ ] Postop urinary retention is clinically significant and a complication of the procedure [ ] Other please specify ____ [ ] Unable to determine MTDD
--- NOTE | 2025-03-29 15:32 | CDI ---
Documentation Clarification Form Date: 03/29/2025 03:22:13 PM From: Nicolle Emerson RN, CCDS Email: [email or web address] Admit Date: 03/22/2025 02:02:00 PM Patient Name: Cailin Cooper Visit Number: [id number] Discharge Date: 03/23/2025 12:40:00 PM ATTENTION: The Clinical Documentation Specialists (CDI) and [facility] Coding Staff appreciate your assistance in clarifying documentation. Please respond to the clarification below the line at the bottom and electronically sign. The CDI & [facility] Coding staff will review the response and follow-up if needed. Please note: Queries are made part of the Legal Health Record. If you have any questions, please contact the author of this message via ITS. Doctor Reuben Mahmood Postoperative atelectasis is documented in your progress notes and the patient had a right TKA on 03/20. Additional clarification is requested. History/Risk Factors: HLD, hypothyroidism and depression. Presents for elective surgery due to osteoarthritis of right knee. Patients Admitting Diagnosis: severe osteoarthritis of right knee Post-Operative Diagnosis: same Procedure performed: Right TKA 03/20 Clinical Indicators: 03/21 and 03/22 IM progress notes: "Postoperative hypoxia. Patient currently requiring 2 L O2 via nasal cannula likely secondary to postoperative atelectasis. Patient denies shortness of breath, cough, or congestion." 03/20-03/23 pox: 91-95% RR 16-18 No imaging Treatment: room air oxygen-2LNC 03/20-03/23; IS 10-15 times/hr What relationship, if any, exists between the diagnosis of postoperative atelectasis and the procedure: [ x ] postoperative atelectasis is not clinically significant and not a complication of the procedure [ ] postoperative atelectasis is clinically significant and not a complication of the procedure [ ] postoperative atelectasis is clinically significant and a complication of the procedure [ ] Other please specify ____ [ ] Unable to determine MTDD
== END 2025-03-23 12:40 | disposition home or self-care (01) | DRG 470 ==
LOC: OR 05:44 → 4SSUR 08:30 → OR 03-22 14:02 → 4SSUR 03-22 14:02
PROVIDERS: ADMIT Orthopaedic Surgery; ATTEND Orthopaedic Surgery
PROC: 0SRC0J9 Replacement of Right Knee Joint with Synthetic Substitute, Cemented, Open Approach (ICD-10-PCS; principal; 2025-03-22)
DX: M17.11 Unilateral primary osteoarthritis, right knee (principal); D62 Acute posthemorrhagic anemia; E03.9 Hypothyroidism, unspecified; F32.A Depression, unspecified; I10 Essential (primary) hypertension; J98.11 Atelectasis; R09.02 Hypoxemia; G31.84 Mild cognitive impairment of uncertain or unknown etiology; M25.761 Osteophyte, right knee; R33.8 Other retention of urine; Z79.890 Hormone replacement therapy; E78.5 Hyperlipidemia, unspecified; Z79.82 Long term (current) use of aspirin; Z79.899 Other long term (current) drug therapy; Z90.710 Acquired absence of both cervix and uterus; Z96.652 Presence of left artificial knee joint; M21.061 Valgus deformity, not elsewhere classified, right knee; Z88.1 Allergy status to other antibiotic agents; Z91.013 Allergy to seafood
CPT/HCPCS: 64448; 64473; 80048; 83735; 85025; 85027